=== PATIENT | male | born 1960 | race Caucasian/White ===

== ENCOUNTER 2016-10-06 18:32 | Inpatient (IN) | payer OTHER ==
[~2016-10-06] VITALS: Ht 182.9 cm; Wt 140.7 kg
[2016-10-06 18:41] VITALS: BP 167/85; PULSE 103; RESP 18; TEMP 97.7; O2SAT 100
--- NOTE | 2016-10-06 19:07 | PD ---
HPI Chief Complaint: Abdominal Pain Time Seen by Provider: 18:55 Travel History International Travel<30 days: No Contact w/Intl Traveler<30days: No Traveled to known affect area: No History of Present Illness HPI This is a 56-year-old male with history of hypertension, type 2 diabetes, non- Hodgkin's lymphoma which has been in remission for 15 years. He resents for evaluation of dysuria and abdominal pain. He reports over the past 2 months he has had issues with urinary retention as well as a burning sensation whenever he is able to urinate. Symptoms have been progressing, particularly over the past week, which prompted evaluation. It is associated with a generalized "tightness" type of pain across his abdomen. Denies any nausea or vomiting but he is concerned that he has lost 30 or 40 pounds over the past month secondary to severe anxiety and not eating. He reports that he has been anxious in regards to his symptoms as well as his current lack of health insurance. During examination he is tearful and clearly anxious. He denies flank pain, testicular or scrotal pain, urethral discharge, chest pain or shortness of breath. He does feel that when he is anxious he breathes more heavily. He has not been sexually active in years. He has no other complaints at this time. [facility] Past Medical History Narrative Medical History of hypertension, diabetes, remote history of non-Hodgkin's lymphoma Social History Alcohol Use: No Tobacco Use: No Allergies-Medications (Allergen,Severity, Reaction): Coded Allergies: Penicillin (Verified Allergy, Unknown, 10/06/16) Reported Meds & Prescriptions Reported Meds & Active Scripts Active Reported Metoprolol Tartrate 100 Mg Tab 100 Mg PO BID Lisinopril-Hctz 20-25 Mg Tab 1 Tab PO DAILY Glipizide 10 Mg Tab 10 Mg PO BIDAC Take 30 minutes before a meal Metformin (Metformin HCl) 1,000 Mg Tab 1,000 Mg PO BIDPC With meals Review of Systems Except as stated in HPI: all other systems reviewed are Neg Physical Exam Narrative GENERAL: This is a well-developed well-nourished obese male who is in no acute distress. He is anxious and tearful during examination. SKIN: Warm and dry. HEAD: Atraumatic. Normocephalic. EYES: Pupils equal and round. No scleral icterus. No injection or drainage. ENT: No nasal bleeding or discharge. Mucous membranes pink and moist. NECK: Trachea midline. No JVD. CARDIOVASCULAR: Regular rate and rhythm. No murmur appreciated. RESPIRATORY: No accessory muscle use. Clear to auscultation. Breath sounds equal bilaterally. GASTROINTESTINAL: Abdomen soft, mild generalized tenderness to palpation without guarding. No CVA tenderness. : Normal appearing testicles and scrotum. There is no tenderness to palpation of the scrotum. There is no urethral discharge. MUSCULOSKELETAL: No obvious deformities. No edema. NEUROLOGICAL: Awake and alert. No obvious cranial nerve deficits. Motor grossly within normal limits. Normal speech. Data Data Last Documented VS Vital Signs Date Time Temp Pulse Resp B/P Pulse Ox O2 Delivery O2 Flow Rate FiO2 10/06/16 19:25 99 18 121/81 99 Room Air 10/06/16 18:41 97.7 Orders Complete Blood Count With Diff (10/06/16 19:02) Comprehensive Metabolic Panel (10/06/16 19:02) Lipase (10/06/16 19:02) Urinalysis - C+S If Indicated (10/06/16 19:02) Ct Abd/Pel W Iv Contrast(Rout) (10/06/16 19:02) Electrocardiogram (10/06/16 19:02) Chest, Single Ap (10/06/16 19:02) Ckmb (Isoenzyme) Profile (10/06/16 19:42) Troponin I (10/06/16 19:42) Sodium Chlor 0.9% 1000 Ml Inj (Ns 1000 M (10/06/16 20:06) Labs Laboratory Tests Test 10/06/16 10/06/16 19:06 19:35 Urine Color YELLOW Urine Turbidity CLEAR Urine pH 6.5 Urine Specific [place] 1.017 Urine Protein TRACE mg/dL Urine Glucose (UA) NEG mg/dL Urine Ketones NEG mg/dL Urine Occult Blood NEG Urine Nitrite NEG Urine Bilirubin NEG Urine Urobilinogen LESS THAN 2.0 MG/DL Urine Leukocyte Esterase TRACE Urine RBC 1 /hpf Urine WBC 4 /hpf Urine Hyaline Casts 1 /lpf Urine Mucus FEW /lpf Microscopic Urinalysis Comment CULT NOT INDICATED White Blood Count 7.1 TH/MM3 Red Blood Count 4.09 MIL/MM3 Hemoglobin 10.9 GM/DL Hematocrit 32.4 % Mean Corpuscular Volume 79.1 FL Mean Corpuscular Hemoglobin 26.6 PG Mean Corpuscular Hemoglobin 33.6 % Concent Red Cell Distribution Width 15.0 % Platelet Count 165 TH/MM3 Mean Platelet Volume 7.4 FL Neutrophils (%) (Auto) 71.6 % Lymphocytes (%) (Auto) 19.9 % Monocytes (%) (Auto) 5.9 % Eosinophils (%) (Auto) 0.1 % Basophils (%) (Auto) 2.5 % Neutrophils # (Auto) 5.1 TH/MM3 Lymphocytes # (Auto) 1.4 TH/MM3 Monocytes # (Auto) 0.4 TH/MM3 Eosinophils # (Auto) 0.0 TH/MM3 Basophils # (Auto) 0.2 TH/MM3 CBC Comment AUTO DIFF MDM Medical Decision Making Medical Screen Exam Complete: Yes Emergency Medical Condition: Yes Medical Record Reviewed: Yes Differential Diagnosis Urinary tract infection, obstructive uropathy, urethritis, intra-abdominal mass , BPH Narrative Course 56-year-old male with a few months of dysuria, difficulty urinating, anxiety in regards to his medical symptoms as well as a reported 30-40 pound weight loss which he feels is secondary to the anxiety. Patient was initially seen in triage. Basic lab work and imaging studies have been ordered. The patient will be moved to a medical bed when one becomes available. Isacc Jim Oct 06, 2016 19:07
[2016-10-06 19:25] VITALS: BP 121/81; PULSE 99; RESP 18; O2SAT 99
[2016-10-06] MEDS ORDERED: METF1000 PO (19:26)
[2016-10-06] MEDS ORDERED: GLIP10TA6 PO (19:27)
[2016-10-06] MEDS ORDERED: LISI20TA3 PO (19:28)
[2016-10-06] MEDS ORDERED: METO100T PO (19:29)
[2016-10-06 19:30] LABS: BLOOD, URINE NEG (NEG); COMMENT (UR) CULT NOT INDICATED; CULTURE IF INDICATED CULT NOT INDICATED; GLUCOSE,URINE NEG (NEG); HYALINE CAST, URINE 1 /lpf (RARE); KETONE, URINE NEG (NEG); MUCUS URINE FEW /lpf (OCC); NITRITE,URINE NEG (NEG); PH, URINE 6.5 (5.0-8.5); URINE COLOR YELLOW (YELLW/STRAW)
[2016-10-06 19:46] LABS: AUTOMATED NEUTROPHIL # 5.1 TH/MM3 (1.8-7.7); BASOPHIL # 0.2 TH/MM3 (0-0.2); BASOPHIL % 2.5 % (0.0-2.0); EOSINOPHIL % 0.1 % (0.0-4.0); HEMATOCRIT 32.4 % (39.0-51.0); LYMPH % 19.9 % (9.0-44.0); LYMPHOCYTE # 1.4 TH/MM3 (1.0-4.8); MEAN CELL VOLUME 79.1 FL (80.0-100.0); MEAN CORPUSCULAR HEMOGLOBIN 26.6 PG (27.0-34.0); MEAN CORPUSCULAR HGB CONC 33.6 % (32.0-36.0); MONO % 5.9 % (0.0-8.0); NEUT % 71.6 % (16.0-70.0); PLATELET COUNT 165 TH/MM3 (150-450); RED BLOOD COUNT 4.09 MIL/MM3 (4.50-5.90); WHITE BLOOD COUNT 7.1 TH/MM3 (4.0-11.0)
[2016-10-06 19:51] LABS: HEMO FLAGS AUTO DIFF
--- NOTE | 2016-10-06 19:55 | RADRPT ---
EXAM DATE/TIME: 10/06/2016 19:14 [facility] COMPARISON: No previous studies available for comparison. INDICATIONS : Short of breath MEDICAL HISTORY : Lymphoma. SURGICAL HISTORY : Infusaport ENCOUNTER: Initial ACUITY: 2 weeks PAIN SCORE: 0/10 LOCATION: Bilateral chest FINDINGS: A single view of the chest demonstrates the lungs to be hypo- aerated without evidence of mass, infil trate or effusion. The cardiomediastinal contours are unremarkable. Osseous structures are intact. CONCLUSION: No acute disease. No significant change has occurred. Jeff Alcala MD on October 06, 2016 at 19:53 Board Certified Radiologist. This report was verified electronically.
[2016-10-06] MEDS ORDERED: SODIUM CHLOR 0.9% 1000 ML INJ 1,000 ML IV SCH (20:06)
[2016-10-06 20:15] LABS: ANION GAP 12 MEQ/L (5-15)
[2016-10-06 20:23] LABS: ALKALINE PHOSPHATASE 1003 U/L (45-117); ALT (GPT) 36 U/L (12-78); AST (GOT) 43 U/L (15-37); BICARBONATE 24.8 MEQ/L (21.0-32.0); BLOOD UREA NITROGEN 21 MG/DL (7-18); CHLORIDE 100 MEQ/L (98-107); GLOMERULAR FILTRATION RATE 51 ML/MIN (>89); POTASSIUM 3.5 MEQ/L (3.5-5.1); SODIUM (NA) 137 MEQ/L (136-145); TOTAL BILIRUBIN ADULT 0.6 MG/DL (0.2-1.0)
[2016-10-06 20:30] LABS: CREATINE KINASE 62 U/L (39-308)
[2016-10-06 20:34] LABS: BANDS 8 % (0-6); BLASTS 1 % (0-0); CORRECTED NUCLEATED RBC 7 /100 WBC (0-0); METAMYELOCYTES 3 % (0-1); MYELOCYTES 5 % (0-0); NEUTROPHIL # MANUAL DIFF 5.3 TH/MM3 (1.8-7.7); POLYS (SEG NEUTROPHILS) 57 % (16-70); PROMYELOCYTES 1 % (0-0); WBC DIFF SAMPLE 100
[2016-10-06 20:37] LABS: PLATELET ESTIMATE SMEAR NORMAL (NORMAL); PLATELET MORPHOLOGY NORMAL (NORMAL); TEARDROP RBCS 1+ (NORMAL)
[2016-10-06 20:38] LABS: SCAN/DIFF FINAL DIFF MANUAL
[2016-10-06] MEDS ORDERED: IOHEXOL 350 MG/ML 10 ML VIAL (for RAD DIAG) IV ONE (20:59)
--- NOTE | 2016-10-06 21:37 | RADRPT ---
EXAM DATE/TIME: 10/06/2016 20:38 [facility] COMPARISON: No previous studies available for comparison. INDICATIONS : Chest and abdominal pain and burning with urination. IV CONTRAST: 100 cc Omnipaque 350 (iohexol) IV ORAL CONTRAST: No oral contrast ingested. RADIATION DOSE: 24.97 CTDIvol (mGy) MEDICAL HISTORY : Lymphoma. Diabetes mellitus type 2. SURGICAL HISTORY : Appendectomy. ENCOUNTER: Initial ACUITY: 1 week PAIN SCALE: 5/10 LOCATION: Bilateral upper quadrant TECHNIQUE: Volumetric scanning of the abdomen and pelvis was performed. Using automated exposure control and ad justment of the mA and/or kV according to patient size, radiation dose was kept as low as reasonably achievable to obtain optimal diagnostic quality images. FINDINGS: LOWER LUNGS: The visualized lower lungs are clear. LIVER: Homogeneous density without lesion. There is no dilation of the biliary tree. Numerous calcified gal lstones are noted. SPLEEN: Moderately enlarged without evidence of focal lesion. PANCREAS: Within normal limits. KIDNEYS: A large complex partially calcified mass is identified extending from the lower pole the right kidney . It measures 9.2 x 7.2 x 6.3 cm in size. Bilateral simple renal cysts are also present. There is a 5 .2 cm simple cyst is identified off the upper pole of the right kidney. There is a 4.9 cm cyst off th e lower pole the left kidney. There is no evidence of hydronephrosis. ADRENAL GLANDS: Within normal limits. VASCULAR: There is no aortic aneurysm. BOWEL/MESENTERY: The stomach, small bowel, and colon demonstrate no acute abnormality. There is no free intraperitone al air or fluid. ABDOMINAL WALL: Within normal limits. RETROPERITONEUM: There is no lymphadenopathy. BLADDER: No wall thickening or mass. REPRODUCTIVE: Within normal limits. INGUINAL: There is no lymphadenopathy or hernia. MUSCULOSKELETAL: The bony structures demonstrate the presence of a smudgy sclerotic texture. There are no clearly dest ructive lesions. CONCLUSION: Large complex partially calcified right renal mass. Neoplasm needs to be excluded. Bilateral simple renal cysts. Cholelithiasis. Sclerotic bony texture which may or present blastic metastatic disease. Jeff Alcala MD on October 06, 2016 at 21:28 Board Certified Radiologist. This report was verified electronically.
[2016-10-06] MEDS ORDERED: LORazepam 2 MG/ML VIAL IV PUSH ONE (22:00)
[2016-10-06 22:06] VITALS: BP 130/60; PULSE 105; RESP 18; O2SAT 99
--- NOTE | 2016-10-06 22:06 | PD ---
Physical Exam Date Seen by Provider: Oct 06, 2016 Time Seen by Provider: 21:58 Narrative 56-year-old male that presents to the ED for evaluation of loss of weight, anxiety, oliguria and dysuria. Patient was seen primarily by Isacc Hall. Please refer to his note. Case was signed out to me pending imaging and lab report and disposition. Data Data Last Documented VS Vital Signs Date Time Temp Pulse Resp B/P Pulse Ox O2 Delivery O2 Flow Rate FiO2 10/06/16 19:25 99 18 121/81 99 Room Air 10/06/16 18:41 97.7 Orders Complete Blood Count With Diff (10/06/16 19:02) Comprehensive Metabolic Panel (10/06/16 19:02) Lipase (10/06/16 19:02) Urinalysis - C+S If Indicated (10/06/16 19:02) Ct Abd/Pel W Iv Contrast(Rout) (10/06/16 19:02) Electrocardiogram (10/06/16 19:02) Chest, Single Ap (10/06/16 19:02) Ckmb (Isoenzyme) Profile (10/06/16 19:42) Troponin I (10/06/16 19:42) Sodium Chlor 0.9% 1000 Ml Inj (Ns 1000 M (10/06/16 20:06) Iohexol 350 Inj (Omnipaque 350 Inj) (10/06/16 20:59) Lorazepam Inj (Ativan Inj) (10/06/16 22:00) Labs Laboratory Tests Test 10/06/16 10/06/16 10/06/16 19:06 19:35 19:53 Urine Color YELLOW Urine Turbidity CLEAR Urine pH 6.5 Urine Specific [place] 1.017 Urine Protein TRACE mg/dL Urine Glucose (UA) NEG mg/dL Urine Ketones NEG mg/dL Urine Occult Blood NEG Urine Nitrite NEG Urine Bilirubin NEG Urine Urobilinogen LESS THAN 2.0 MG/DL Urine Leukocyte Esterase TRACE Urine RBC 1 /hpf Urine WBC 4 /hpf Urine Hyaline Casts 1 /lpf Urine Mucus FEW /lpf Microscopic Urinalysis Comment CULT NOT INDICATED White Blood Count 7.1 TH/MM3 Red Blood Count 4.09 MIL/MM3 Hemoglobin 10.9 GM/DL Hematocrit 32.4 % Mean Corpuscular Volume 79.1 FL Mean Corpuscular Hemoglobin 26.6 PG Mean Corpuscular Hemoglobin 33.6 % Concent Red Cell Distribution Width 15.0 % Platelet Count 165 TH/MM3 Mean Platelet Volume 7.4 FL Neutrophils (%) (Auto) 71.6 % Lymphocytes (%) (Auto) 19.9 % Monocytes (%) (Auto) 5.9 % Eosinophils (%) (Auto) 0.1 % Basophils (%) (Auto) 2.5 % Neutrophils # (Auto) 5.1 TH/MM3 Lymphocytes # (Auto) 1.4 TH/MM3 Monocytes # (Auto) 0.4 TH/MM3 Eosinophils # (Auto) 0.0 TH/MM3 Basophils # (Auto) 0.2 TH/MM3 CBC Comment AUTO DIFF Differential Total Cells 100 Counted Neutrophils % (Manual) 57 % Band Neutrophils % 8 % Lymphocytes % 20 % Monocytes % 5 % Neutrophils # (Manual) 5.3 TH/MM3 Metamyelocytes 3 % Myelocytes 5 % Promyelocytes 1 % Nucleated Red Blood Cells 7 /100 WBC Differential Comment FINAL DIFF MANUAL Blastocytes 1 % Platelet Estimate NORMAL Platelet Morphology Comment NORMAL Tear Drop Cells 1+ Sodium Level 137 MEQ/L Potassium Level 3.5 MEQ/L Chloride Level 100 MEQ/L Carbon Dioxide Level 24.8 MEQ/L Anion Gap 12 MEQ/L Blood Urea Nitrogen 21 MG/DL Creatinine 1.44 MG/DL Estimat Glomerular Filtration 51 ML/MIN Rate Random Glucose 179 MG/DL Calcium Level 8.3 MG/DL Total Bilirubin 0.6 MG/DL Aspartate Amino Transf 43 U/L (AST/SGOT) Alanine Aminotransferase 36 U/L (ALT/SGPT) Alkaline Phosphatase 1003 U/L Total Protein 7.6 GM/DL Albumin 2.7 GM/DL Lipase 377 U/L Total Creatine Kinase 62 U/L Troponin I LESS THAN 0.02 NG/ML [facility] Medical Record Reviewed: Yes Supervised Visit with KAYLA: No Interpretation(s) CBC & BMP Diagram 10/06/16 19:35 Last Impressions Chest X-Ray 10/06/161901 Signed Impressions: Service Date/Time: Thursday, October 06, 2016 19:14 - CONCLUSION: No acute disease. No significant change has occurred. Jeff Alcala MD Abdomen/Pelvis CT 10/06/161901 Signed Impressions: Service Date/Time: Thursday, October 06, 2016 20:38 - CONCLUSION: Large complex partially calcified right renal mass. Neoplasm needs to be excluded. Bilateral simple renal cysts. Cholelithiasis. Sclerotic bony texture which may or present blastic metastatic disease. Jeff Alcala MD UA negative. Troponin and CK-MB negative. LFTs essentially unremarkable except for alkaline phosphatase of 1000 Differential Diagnosis Metastasis versus cancer versus tumor versus UTI versus abdominal mass versus mass versus electrolyte normal at the Narrative Course 56-year-old male that presents to the ED for evaluation of loss of weight, urinary symptoms as well as anxiety. Patient was properly examined and was found to have signs and symptoms consistent with appears to be unfortunately metastasis and likely recurrence of cancer. CT of the abdomen show mass in the right kidney which per patient she has had in the past. CT of for sure that showed changes on the spine that appeared to be metastatic. Lab work did show some bandemia as well as changes in the red blood cells. Concern for recurrence of blood cancer. Patient is very anxious on exam. Patient also has lost about 20-30 pounds of weight with no trying. Case was discussed in my attending who recommends admission for workup of metastatic disease. Patient appears to have some anxiety and is very anxious and depressed for the past couple months which I think is secondary to the disease. Findings and admission were discussed with family and patient were both agreeable with admission for workup. Case was discussed with Piyush Smalls for [facility] hospitalist who agrees to admission. Diagnosis Primary Impression: Metastatic disease Additional Impressions: Abdominal pain Qualified Code: R10.84 - Generalized abdominal pain Anxiety Renal mass Admitting Information Admitting Physician Requests: Carlos Lopez Oct 06, 2016 22:06
[2016-10-06] MEDS ORDERED: MORPHINE SULFATE 4 MG/ML INJ IV PUSH ONE (23:30)
[2016-10-07] VITALS (7 sets, daily range): BP systolic 110–140; BP diastolic 52–73; PULSE 68–89; RESP 18; TEMP 96.5–98.1; O2SAT 94–98
[2016-10-07] MEDS ORDERED: SODIUM CHLORIDE 0.9% FLUSH 5 ML FLUSH FLUSH PRN (00:15)
[2016-10-07] MEDS ORDERED: MAGNESIUM HYDROXIDE SUSP 30 ML CUP PO PRN (00:15)
[2016-10-07] MEDS ORDERED: NALOXONE HCL 0.4 MG/ML AMP IV PRN (00:15)
[2016-10-07] MEDS ORDERED: BISACODYL 10 MG SUPP PR PRN (00:15)
[2016-10-07] MEDS ORDERED: ACETAMINOPHEN 325 MG TAB PO PRN (00:15)
[2016-10-07] MEDS ORDERED: ONDANSETRON HCL 4 MG/2 ML VIAL IVP PRN (00:15)
[2016-10-07] MEDS ORDERED: MORPHINE SULFATE 4 MG/ML INJ IV PRN (00:15)
[2016-10-07] MEDS: MORPHINE SULFATE 4 MG/ML INJ IV PRN ×3 (00:35→19:23)
[2016-10-07] MEDS: SODIUM CHLOR 0.45% 1000 ML INJ 1,000 ML IV SCH ×2 (01:38→13:24)
[2016-10-07] MEDS ORDERED: DEXTROSE 50% IN WATER 50 ML VIAL(D50) IV PUSH PRN (09:00)
[2016-10-07] MEDS ORDERED: GLUCAGON 1 MG/ML VIAL OTHER PRN (09:00)
[2016-10-07] MEDS: HEPARIN SODIUM - SQ 10,000 UNITS/ML VIAL SQ SCH ×2 (09:18→22:04)
[2016-10-07] MEDS: METOPROLOL TARTRATE 100 MG TAB PO SCH ×2 (09:18→22:05)
[2016-10-07] MEDS: glipiZIDE 10 MG TAB PO SCH ×2 (09:18→16:38)
[2016-10-07] MEDS: SODIUM CHLORIDE 0.9% FLUSH 5 ML FLUSH FLUSH SCH ×2 (09:19→20:00)
--- NOTE | 2016-10-07 09:53 | MH ---
cc: MARIANA KILPATRICK DATE OF ADMISSION 10/06/2016 PRIMARY CARE PHYSICIAN Lauri Sánchez MD HISTORY The patient has had an oncologist in the past, Dr. Octavio Cunha, but has not seen him for many many years. PRESENTING COMPLAINT Abdominal pain and complaints with urination HISTORY OF PRESENT ILLNESS The patient is a 56-year-old obese gentleman with a past medical history significant for hypertension, type 2 diabetes and non-Hodgkin's lymphoma which has been in remission for 15 years. The patient had followed with Dr. Octavio Cunha for his non-Hodgkin's lymphoma and has not seen him for years. He presents to the ER for evaluation of dysuria and abdominal pain. The patient reports over the last two months he has been experiencing urinary retention, as well as, some burning sensation whenever he is able to urinate. Symptoms have been progressing and within the past one week has gotten worse so he came into the ER for evaluation. The patient reports he had seen Dr. Sánchez and told that he might have an enlarged prostate. The patient also experiences some abdominal pain which is vague. Denies any nausea or vomiting. Admits to 30-40 pounds unintentional weight loss over the last one month. 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 He denies flank pain, testicular or scrotal pain, urethral discharge, chest pain or shortness of breath at this point. PAST MEDICAL HISTORY Significant for: 1. Hypertension 2. Diabetes 3. A remote history of non-Hodgkin's lymphoma. PAST SURGICAL HISTORY None ALLERGIES INCLUDE PENICILLIN MEDICATIONS At home: 1. Metoprolol 100 mg p.o. b.i.d. 2. Lisinopril/HCTZ 20/25 one tablet p.o. daily 3. Glipizide 10 mg p.o. b.i.d. 4. Metformin 1000 mg p.o. b.i.d. 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 He has no family other than his mom in the State of [place]. REVIEW OF SYSTEMS All 14-systems were reviewed and the pertinent positives are mentioned in the HPI, otherwise it was negative in all 14-systems that were reviewed. PHYSICAL EXAM On physical examination, his vital signs at this point show a temperature of 97.7, pulse 71, respiratory rate 18 systolic blood pressure 130, diastolic 66 and he is sating 94% on room air. GENERAL PHYSICAL EXAMINATION: The patient is an obese gentleman laying in bed, seems really anxious, almost tearful. SKIN: Warm and dry. HEAD: Atraumatic, normocephalic. EYES: Pupils are equally round and reactive to light and accommodation. No scleral icterus or conjunctival injection was noted. Oral mucosa appears slightly dry. NECK: Supple and nontender. CARDIOVASCULAR: S1-S2 regular without gallops, murmurs or rubs. RESPIRATORY: Bilateral air entry, clear to auscultation. No rales, wheezes or rhonchi. GI: Positive bowel sounds, soft, mildly generalized tenderness without guarding. GENITOURINARY: No discharge. Normal-appearing testicles and scrotum. NEUROLOGIC EXAMINATION: Awake, alert, oriented. The patient does seem anxious, otherwise no focal deficit was seen. Cranial nerves appeared grossly intact. PSYCH: The patient is appropriate and cooperative. As mentioned above, the patient is anxious. PERTINENT LAB INVESTIGATIONS Shows a WBC count of 7.1, hemoglobin 10.9, hematocrit 32.4, platelet count of 165. Chemistry shows sodium 137, potassium 3.5, chloride 100, bicarb 94.8, BUN 21, creatinine 1.44, glucose 179, potassium 8.3, AST 43, ALT 36, alk phos 1003 which is elevated. CK negative. Troponin less than 0.02, total protein 7.6, albumin 2.7, lipase of 377. Urinanalysis appears negative. PERTINENT IMAGING STUDIES Include a chest x-ray done in the emergency room which showed no acute disease. The patient had a CT scan of the abdomen and pelvis which shows large complex partially calcified right renal mass and neoplasm needs to be excluded. Also seen were bilateral simple renal cysts, some gallstones and sclerotic bony texture which may represent blastic metastatic disease. DIAGNOSTIC IMPRESSION 1. Abdominal pain, dysuria 2. Right renal mass possible metastatic cancer. 3. Question recurrence of non-Hodgkin's lymphoma. 4. Diabetes 5. Hypertension 6. Anxiety 7. Elevated alkaline phosphatase 8. Mildly elevated creatinine PLAN The patient is admitted for observation at this point. We will continue with IV fluids, recheck creatinine in the morning. I will resume home Metoprolol and Glipizide. Start the patient on ADA diet. We will hold STAR inhibitors and Metformin for now and will resume once renal function is better. Awaiting oncology consultation. The patient is scheduled for a bone scan and a CT of his chest later today. DVT prophylaxis, GI prophylaxis. The patient counseled aggressively about the diagnosis and need to control anxiety. Discussion seemed to have helped. Elevated alkaline phosphatase possibly could be secondary to metastatic disease. We will recheck LFTs in the morning. Plan discussed with the patient in detail and also discussed with the patient's nursing staff. There is no family at bedside. MD MISSY Brito/VIVEK /9:16 AM /9:37 AM
[2016-10-07] MEDS: INSULIN ASPART SUPPLEMENTAL SCALE SQ SCH ×3 (11:00→21:00)
--- NOTE | 2016-10-07 13:38 | RADRPT ---
EXAM DATE/TIME: 10/07/2016 13:12 [facility] COMPARISON: No previous studies available for comparison. INDICATIONS : Evaluate for metastatic disease. Renal mass possible cancer RADIATION DOSE: 17.47 CTDIvol (mGy) MEDICAL HISTORY : Hypertension. Lymphoma. SURGICAL HISTORY : None. ENCOUNTER: Initial ACUITY: 1 day PAIN SCALE: 0/10 LOCATION: Bilateral chest TECHNIQUE: Volumetric scanning of the chest was performed. Using automated exposure control and adjustment of t he mA and/or kV according to patient size, radiation dose was kept as low as reasonably achievable to obtain optimal diagnostic quality images. FINDINGS: LUNGS: There is no consolidation or pneumothorax. No concerning pulmonary nodule is visualized. PLEURAE: There is no pleural thickening or pleural effusion. MEDIASTINUM: The heart and great vessels demonstrate no acute abnormality. There is no mediastinal or hilar lymph adenopathy. AXILLAE: Within normal limits. No lymphadenopathy. MUSCULOSKELETAL: Within normal limits for patient age. MISCELLANEOUS: The visualized upper abdominal organs demonstrate no acute abnormality. Innumerable gallstones CONCLUSION: Unremarkable study. Numerous gallstones. Prominent osteophytes throughout the thoracic spine but no e vidence of metastatic disease. Nikolas Shipley MD on October 07, 2016 at 13:35 Board Certified Radiologist. This report was verified electronically.
--- NOTE | 2016-10-07 14:07 | RADRPT ---
EXAM DATE/TIME: 10/07/2016 13:45 [facility] COMPARISON: No previous studies available for comparison. PRIOR BONE SCANS: No correlative bone scan available for comparison. INDICATIONS : Metastatic disease. Non-Hodgkins lymphoma remission for 15 years. DOSE: 30.1 mCi Tc99m MDP IV MEDICAL HISTORY : Hypertension. Diabetes mellitus type 2. SURGICAL HISTORY : Appendectomy. ENCOUNTER: Initial ACUITY: 1 week PAIN SCALE: 2/10 LOCATION: Abdomen. TECHNIQUE: Three hours post intravenous administration of radiotracer, whole body bone scan imaging was performe d. FINDINGS: Blood pool images demonstrate a homogeneous pattern of uptake in the soft tissues. No hyperemic area s are identified. Planar bone scan demonstrates a normal pattern of uptake. No focal areas of incre ased or decreased uptake are seen other than slight uptake around the shoulders and knees bilaterally consistent with osteoarthritis. CONCLUSION: Normal examination other than slight uptake around the shoulders and knees bilaterally consistent wit h osteoarthritis. Nikolas Shipley MD on October 07, 2016 at 14:05 Board Certified Radiologist. This report was verified electronically.
--- NOTE | 2016-10-07 16:31 | EKG ---
Date Performed: 10/06/2016 Time Performed: 19:10:09 PTAGE: 56 years EKG: ATRIAL FLUTTER/TACHYCARDIA WITH RAPID VENTRICULAR RESPONSE WITH ABERRANT CONDUCTION OR VENT RICULAR PREMATURE COMPLEXES Clinical correlation is recommended ABNORMAL RHYTHM ECG NO PREVIOUS TRACING DOCTOR: Johnson Meade Interpretating Date/Time 10/07/2016 16:30:11
--- NOTE | 2016-10-07 21:01 | MB ---
cc: SULMA KILPATRICK MD, ABDUL J. M.D. DATE OF CONSULTATION 10/07/2016 REASON FOR CONSULTATION Consult requested by Dr. Kilpatrick for evaluation of right kidney mass. HISTORY OF PRESENT ILLNESS This is a 56-year-old male. He has a history of non-Hodgkin's lymphoma which was treated with R-CHOP 15 years ago by a medical oncologist Dr. Octavio Cunha. The patient followed with Dr. Cunha for few years and he lost his insurance. He has not seen Dr. Cunha for several years. The patient came into the emergency room complaining of abdominal pain and dysuria. He was also complaining of weight loss. In the emergency room the patient underwent workup with a CT scan of the abdomen and pelvis and a chest x-ray. This revealed large complex partially calcified right renal mass and neoplasm is suspected. Also he has bilateral simple renal cysts and cholelithiasis. There is sclerotic bony texture noted which may or may not be positive metastatic disease. The patient is admitted to the hospital. I have been asked to see him for further evaluation. The patient denies any hematuria. He is complaining of dysuria with right-sided abdominal pain. He denies any nausea, vomiting, diarrhea. He has extreme anxiety. The rest of the review of systems is negative. PAST MEDICAL HISTORY 1. Non-Hodgkin's lymphoma that was treated with Rituxan and CHOP chemotherapy 15 years ago. 2. Hypertension. 3. Diabetes mellitus. PAST SURGICAL HISTORY [id number] placement. ALLERGIES PENICILLIN. MEDICATIONS 1. Metoprolol. 2. Lisinopril. 3. Hydrochlorothiazide. 4. Glipizide. 5. Metformin. FAMILY HISTORY Noncontributory. SOCIAL HISTORY The patient does not smoke cigarettes, does not drink alcohol. He lives with his mom. PHYSICAL EXAMINATION GENERAL: This is a well-developed, well-nourished white male in no apparent distress. VITAL SIGNS: Temperature 97.7, heart rate 71, blood pressure 130/66. HEENT: Pupils equal, round, reactive to light and accommodation. Extraocular muscles intact. Anicteric. No oral lesions noted. NECK: Supple. LYMPHATICS: There is no cervical, supraclavicular or axillary lymphadenopathy noted. LUNGS: Clear. No wheezes, rhonchi or rales. HEART: Regular rate and rhythm. ABDOMEN: Soft. Nontender. No hepatosplenomegaly. EXTREMITIES: No pedal edema. NEUROLOGICAL: Awake and alert, oriented times three. SKIN: No significant lesions noted. ASSESSMENT 1. A large complex partially calcified mass in the right kidney which is 9.3 x 7.2 x 6.3 cm. This is highly suspicious for kidney cancer until proven otherwise. 2. History of non-Hodgkin's lymphoma status post Rituxan and CHOP chemotherapy 15 years ago. 3. Bony structures demonstrate the presence of a smudgy sclerotic texture. There are no clearly destructive lesions noted. PLAN I have reviewed his available records and I had an extensive discussion with the patient regarding the nature of the right kidney mass. I suspect that we are dealing with renal cell cancer until proven otherwise. My recommendation is to get the CT scan of the chest and bone scan for staging purposes. If the CT scan of the chest and bone scan show metastatic disease then we will ask interventional radiology for the biopsy for tissue diagnosis. However, if the CT scan of the chest and bone scan are negative, then I will consult urology for evaluation of possible resection of the right kidney mass which is highly suspicious for malignancy. I have discussed the case with the admission physician Dr. Kilpatrick, . Further recommendations to follow. Thank you for asking my opinion. MD AARTI Blevins/CHICHI /8:21 PM /8:52 PM SHERI
[2016-10-07] MEDS: ZOLPIDEM TARTRATE 5 MG TAB PO PRN (21:40)
[2016-10-07] MEDS: FAMOTIDINE 20 MG TAB PO SCH (22:04)
[2016-10-08] VITALS (8 sets, daily range): BP systolic 102–149; BP diastolic 54–79; PULSE 72–106; RESP 16–18; TEMP 95.9–97.9; O2SAT 94–100
[2016-10-08] MEDS: SODIUM CHLOR 0.45% 1000 ML INJ 1,000 ML IV SCH ×3 (02:44→20:36)
[2016-10-08] MEDS: MORPHINE SULFATE 4 MG/ML INJ IV PRN ×3 (03:35→13:44)
[2016-10-08] MEDS: INSULIN ASPART SUPPLEMENTAL SCALE SQ SCH ×4 (06:10→21:14)
[2016-10-08] MEDS: glipiZIDE 10 MG TAB PO SCH ×2 (06:51→17:36)
[2016-10-08 07:59] LABS: AUTOMATED NEUTROPHIL # 3.1 TH/MM3 (1.8-7.7); BASOPHIL % 0.9 % (0.0-2.0); EOSINOPHIL % 0.4 % (0.0-4.0); HEMATOCRIT 24.9 % (39.0-51.0); LYMPHOCYTE # 0.9 TH/MM3 (1.0-4.8); MEAN CELL VOLUME 78.9 FL (80.0-100.0); MEAN CORPUSCULAR HEMOGLOBIN 25.9 PG (27.0-34.0); MEAN CORPUSCULAR HGB CONC 32.8 % (32.0-36.0); MONO % 10.9 % (0.0-8.0); NEUT % 68.8 % (16.0-70.0); PLATELET COUNT 86 TH/MM3 (150-450); RED BLOOD COUNT 3.15 MIL/MM3 (4.50-5.90); RED CELL DISTRIBUTION WIDTH 15.1 % (11.6-17.2); WHITE BLOOD COUNT 4.5 TH/MM3 (4.0-11.0)
[2016-10-08 08:09] LABS: INTERNATIONAL NORMALIZED RATIO 1.1 RATIO; PROTHROMBIN TIME - PATIENT 12.7 SEC (9.8-11.6)
[2016-10-08 08:23] LABS: ANION GAP 13 MEQ/L (5-15); BICARBONATE 25.2 MEQ/L (21.0-32.0); BLOOD UREA NITROGEN 16 MG/DL (7-18); CHLORIDE 100 MEQ/L (98-107); GLOMERULAR FILTRATION RATE 88 ML/MIN (>89); POTASSIUM 3.9 MEQ/L (3.5-5.1); SODIUM (NA) 138 MEQ/L (136-145)
[2016-10-08 08:36] LABS: HEMO FLAGS AUTO DIFF
[2016-10-08 08:45] LABS: BANDS 19 % (0-6); CORRECTED NUCLEATED RBC 3 /100 WBC (0-0); METAMYELOCYTES 2 % (0-1); MYELOCYTES 1 % (0-0); NEUTROPHIL # MANUAL DIFF 3.4 TH/MM3 (1.8-7.7); PLATELET ESTIMATE SMEAR LOW (NORMAL); PLATELET MORPHOLOGY NORMAL (NORMAL); POLYS (SEG NEUTROPHILS) 53 % (16-70); SCAN/DIFF FINAL DIFF MANUAL; WBC DIFF SAMPLE 100
[2016-10-08 08:49] LABS: FERRITIN 5118 NG/ML (26-388); TRANSFERRIN IRON PROFILE 171 MG/DL (200-360)
--- NOTE | 2016-10-08 08:58 | MB ---
cc: JONAS LEDBETTER MD DATE OF CONSULTATION 10/08/2016 REASON FOR CONSULTATION 1. Right renal mass 2. Lower urinary tract symptoms HISTORY The patient is a 56-year-old male with a history of non-Hodgkin's lymphoma status post chemotherapy approximately 15 years ago currently in remission. He came to the emergency room yesterday complaining of right-sided abdominal pain and dysuria. He has also complained of a 30-40 pounds weight loss over the last couple of months and a decrease in appetite. While in the emergency room, he underwent a workup which included CT of the abdomen and pelvis with contrast which showed a large complex partially calcified lower pole right renal mass approximately 9 cm in size suspicious for a possible malignancy. Also subsequently had bilateral renal cysts on each of kidney which appeared be benign in nature. On CT, there was also found to be a possible sclerotic bony lesion as well. He subsequently was admitted to [facility] for further evaluation. Subsequently he was seen by medical oncology who ordered a bone scan and CT of his chest which were negative for metastatic disease. The patient is currently complaining of burning type right-sided abdominal pain, as well as, pain going down his right side of his leg. He just knows there is "something wrong with him." He also has significant lower urinary tract symptoms including weak stream, nocturia six to seven times, as well as persistent dysuria. Denies fevers, chills, nausea or vomiting. Denies ever taking medication for his the lower urinary tract symptoms. He denies hematuria as well. He does have a history of smoking in the past. He denies a history of kidney stones or a history of prostate cancer. REVIEW OF SYSTEMS See HPI, otherwise all systems reviewed otherwise were negative. PAST HISTORY 1. Non-Hodgkin's lymphoma treated with chemotherapy 15 years ago 2. Hypertension 3. Diabetes 4. Lower urinary tract symptoms. PAST SURGICAL HISTORY He has had an appendectomy and a port placement. ALLERGIES PENICILLIN MEDICATIONS Include: 1. Metoprolol 2. Lisinopril 3. Hydrochlorothiazide 4. Glipizide 5. Metformin FAMILY HISTORY Denies urolithiasis or genitourinary malignancies. SOCIAL HISTORY He has a history of tobacco use, but denies alcohol or illicit drug. He currently lives with his mom. PHYSICAL EXAMINATION VITAL SIGNS: Temperature is 97.5, pulse 72, respiratory rate 18, blood pressure 110/54 sating 98% on room air. GENERAL: He is alert and oriented x3 in no apparent distress, but he is slightly anxious. He is obese. HEAD: Normocephalic, atraumatic. NECK: Supple. Trachea is midline. No JVD. EYES: No scleral icterus. Extraocular muscles are intact. SKIN: No ulcers or rashes. LUNGS: Clear to auscultation bilaterally. No wheezes, rales, or rhonchi. HEART: Regular rhythm. No murmurs, gallops or rubs. ABDOMEN: Soft, but obese, nontender, nondistended. No peritoneal signs. He does have a small scar on his right lower quadrant consistent with appendectomy. GENITOURINARY: He has no CVA tenderness bilaterally. His penis is circumcised. Testes are descended bilaterally. Normal size and consistency. EXTREMITIES: Nontender, no clubbing, cyanosis or edema. PSYCH: He is anxious and worried. NEUROLOGIC: Cranial nerves II-XII intact. Strength 5/5 all four extremities. LABORATORY DATA Show a sodium of 137, potassium 3.5, chloride 100, bicarb 24.8, BUN 21, creatinine 1.44, glucose 179, calcium 8.3. He has alk phos of 1003. His white count is 7.1, hemoglobin 10.9, hematocrit 32.4, platelet count 165. His urine pH is 6.5, negative nitrates, trace leukocyte esterase, negative for blood. IMAGING STUDIES CT abdomen and pelvis with contrast images reviewed agree with radiologist's report. He has an irregular complex calcified lower pole 9.2 cm right renal mass concerning for malignancy. He has bilateral renal cysts as well. ASSESSMENT AND PLAN 1. The patient is a 56-year-old male with history of non-Hodgkin's lymphoma currently in remission who presents with abdominal pain, weight loss and lower urinary tract symptoms. He was found to have a complex 9 cm lower pole renal mass. The plan, I suspect this is likely a renal cell carcinoma of his right kidney. However due to his history of non-Hodgkin's lymphoma, even though 15 years ago, it does elicit the possibility that it could possibly be a lymphoma of his right kidney due to the irregularity of the mass. Fortunately, his metastatic workup is negative to date. I think it may be worthwhile, while he is in the hospital, to undergo a percutaneous biopsy of that right renal mass just to confirm that it is a renal cell carcinoma and not in fact a lymphoma as it could alter his alternate treatment plan. If it is a primary renal cell carcinoma, then the best treatment then would be to undergo a right radical nephrectomy which likely could be done laparoscopically. 2. We will start the patient Flomax 0.4 daily for his severe lower urinary tract symptoms. 3. We will check go ahead and check his PSA. Thank you for this consult. We will follow along with you. MD DEBRA Mccarthy/VIVEK /8:26 AM /8:43 AM
[2016-10-08] MEDS: SODIUM CHLORIDE 0.9% FLUSH 5 ML FLUSH FLUSH SCH ×2 (10:06→21:00)
[2016-10-08] MEDS: TAMSULOSIN HCL 0.4 MG CAP PO SCH (10:07)
[2016-10-08] MEDS: METOPROLOL TARTRATE 100 MG TAB PO SCH ×2 (10:07→21:07)
[2016-10-08] MEDS: HEPARIN SODIUM - SQ 10,000 UNITS/ML VIAL SQ SCH (11:11)
--- NOTE | 2016-10-08 12:06 | HHI.PR ---
Subjective Interval History awake alert and oriented less anxious today NPO wants to eat no fever no family at bed side no issues per nursing staff Vitals/Results Intake & Output 10/07/16 10/07/16 10/08/16 15:00 23:00 07:00 Intake Total 1000 ml Output Total 400 ml Balance 600 ml Intake IV Total 1000 ml Output Urine Total 400 ml Vital Signs Vital Signs Date Time Temp Pulse Resp B/P Pulse Ox O2 Delivery O2 Flow Rate FiO2 10/08/16 11:45 97.1 81 16 148/68 96 10/08/16 11:12 16 10/08/16 09:47 96 21 10/08/16 08:00 95.9 78 16 102/54 95 10/08/16 04:00 97.5 72 18 110/54 98 10/08/16 00:00 97.5 76 18 124/59 95 10/07/16 20:00 97.2 81 18 140/73 95 10/07/16 15:50 96.5 76 18 133/68 94 CBC/BMP: 10/08/16 0625 10/08/16 0625 Lab Results Laboratory Tests Test 10/08/16 06:25 White Blood Count 4.5 TH/MM3 Red Blood Count 3.15 MIL/MM3 Hemoglobin 8.2 GM/DL Hematocrit 24.9 % Mean Corpuscular Volume 78.9 FL Mean Corpuscular Hemoglobin 25.9 PG Mean Corpuscular Hemoglobin 32.8 % Concent Red Cell Distribution Width 15.1 % Platelet Count 86 TH/MM3 Mean Platelet Volume 7.2 FL Neutrophils (%) (Auto) 68.8 % Lymphocytes (%) (Auto) 19.0 % Monocytes (%) (Auto) 10.9 % Eosinophils (%) (Auto) 0.4 % Basophils (%) (Auto) 0.9 % Neutrophils # (Auto) 3.1 TH/MM3 Lymphocytes # (Auto) 0.9 TH/MM3 Monocytes # (Auto) 0.5 TH/MM3 Eosinophils # (Auto) 0.0 TH/MM3 Basophils # (Auto) 0.0 TH/MM3 CBC Comment AUTO DIFF Differential Total Cells 100 Counted Neutrophils % (Manual) 53 % Band Neutrophils % 19 % Lymphocytes % 17 % Monocytes % 8 % Neutrophils # (Manual) 3.4 TH/MM3 Metamyelocytes 2 % Myelocytes 1 % Nucleated Red Blood Cells 3 /100 WBC Differential Comment FINAL DIFF MANUAL Platelet Estimate LOW Platelet Morphology Comment NORMAL Prothrombin Time 12.7 SEC Prothromb Time International 1.1 RATIO Ratio Activated Partial 24.0 SEC Thromboplast Time Sodium Level 138 MEQ/L Potassium Level 3.9 MEQ/L Chloride Level 100 MEQ/L Carbon Dioxide Level 25.2 MEQ/L Anion Gap 13 MEQ/L Blood Urea Nitrogen 16 MG/DL Creatinine 0.89 MG/DL Estimat Glomerular Filtration 88 ML/MIN Rate Random Glucose 134 MG/DL Calcium Level 7.8 MG/DL Iron Level 41 MCG/DL Total Iron Binding Capacity 239 MCG/DL Percent Iron Saturation 17.1 % Ferritin 5118 NG/ML Vitamin B12 Level 513 PG/ML Folate 5.6 NG/ML Physical Exam General General Appearance: Well Nourished, No Acute Distress, Comfortable Eyes Eye Exam: Pupils Equal, Pupils Reactive Ears & Nose Ears & Nose Exam: Tympanic Membranes Normal Throat Throat Exam: Oral Mucosa [place] & Moist Neck Neck Exam: Neck Supple, Trachea Midline Pulmonary Resp Exam: Clear Bilaterally, Breath Sounds Equal, No Distress Cardiology CV Exam: Regular, Normal Sinus Rhythm Gastrointestinal/Abdomen GI Exam: Soft, Bowel Sounds Present Musculoskeletal MS Exam: Joints Intact, Normal Gait, Normal Tone Integumentary Skin Exam: Clear, Warm, Dry, Intact Extremeties Extremities Exam: No Edema Neurologic Neuro Exam: Alert, Awake, Oriented, Speech Clear, Moving All Extremities Psychiatric Psych Exam: Appropriate Responses Assessment/Plan Assessment/Plan DIAGNOSTIC IMPRESSION 1. Abdominal pain, dysuria 2. Right renal mass possible metastatic cancer. 3. Question recurrence of non-Hodgkin's lymphoma. 4. Diabetes 5. Hypertension 6. Anxiety 7. Elevated alkaline phosphatase 8. Mildly elevated creatinine PLAN will switch to inpatient, needs further diagnostic testing Appreciate ONcology and Urology input large complex right renal Mass ? RCC vs LYmphoma urology would like to proceed with biopsy first CT chest and BOne scan neg for metastatic disease NPO for possible biopsy, if no plan today, will feed the patient i/v fluids monitor creatinine Flomax started resume appropriate home meds holding Josemanuel i and Metformin repeat LFTS in am DVT prophylaxis, GI prophylaxis. discussed with the patient discussed with nursing staff. discussed with Dr Arthur There is no family at bedside. Monica Mckeon MD Oct 08, 2016 12:06
--- NOTE | 2016-10-08 14:30 | PD.ONC.PN ---
Subjective Subjective Remarks Afebrile overnight. Patient resting comfortably. He just received pain medication and states his back feels better. Objective Data Date Time Temp Pulse Resp B/P Pulse Ox O2 Delivery O2 Flow Rate FiO2 10/08/16 11:45 97.1 81 16 148/68 96 10/08/16 11:12 16 10/08/16 09:47 96 21 10/08/16 08:00 95.9 78 16 102/54 95 10/08/16 04:00 97.5 72 18 110/54 98 10/08/16 00:00 97.5 76 18 124/59 95 10/07/16 20:00 97.2 81 18 140/73 95 10/07/16 15:50 96.5 76 18 133/68 94 10/08/16 10/08/16 10/08/16 07:00 15:00 23:00 Intake Total 1000 ml 0 ml Output Total 400 ml Balance 600 ml 0 ml Result Diagram: 10/08/1625 10/08/16 0625 Laboratory Results Laboratory Tests Test 10/08/16 06:25 White Blood Count 4.5 TH/MM3 Red Blood Count 3.15 MIL/MM3 Hemoglobin 8.2 GM/DL Hematocrit 24.9 % Mean Corpuscular Volume 78.9 FL Mean Corpuscular Hemoglobin 25.9 PG Mean Corpuscular Hemoglobin 32.8 % Concent Red Cell Distribution Width 15.1 % Platelet Count 86 TH/MM3 Mean Platelet Volume 7.2 FL Neutrophils (%) (Auto) 68.8 % Lymphocytes (%) (Auto) 19.0 % Monocytes (%) (Auto) 10.9 % Eosinophils (%) (Auto) 0.4 % Basophils (%) (Auto) 0.9 % Neutrophils # (Auto) 3.1 TH/MM3 Lymphocytes # (Auto) 0.9 TH/MM3 Monocytes # (Auto) 0.5 TH/MM3 Eosinophils # (Auto) 0.0 TH/MM3 Basophils # (Auto) 0.0 TH/MM3 CBC Comment AUTO DIFF Differential Total Cells 100 Counted Neutrophils % (Manual) 53 % Band Neutrophils % 19 % Lymphocytes % 17 % Monocytes % 8 % Neutrophils # (Manual) 3.4 TH/MM3 Metamyelocytes 2 % Myelocytes 1 % Nucleated Red Blood Cells 3 /100 WBC Differential Comment FINAL DIFF MANUAL Platelet Estimate LOW Platelet Morphology Comment NORMAL Prothrombin Time 12.7 SEC Prothromb Time International 1.1 RATIO Ratio Activated Partial 24.0 SEC Thromboplast Time Sodium Level 138 MEQ/L Potassium Level 3.9 MEQ/L Chloride Level 100 MEQ/L Carbon Dioxide Level 25.2 MEQ/L Anion Gap 13 MEQ/L Blood Urea Nitrogen 16 MG/DL Creatinine 0.89 MG/DL Estimat Glomerular Filtration 88 ML/MIN Rate Random Glucose 134 MG/DL Calcium Level 7.8 MG/DL Iron Level 41 MCG/DL Total Iron Binding Capacity 239 MCG/DL Percent Iron Saturation 17.1 % Ferritin 5118 NG/ML Vitamin B12 Level 513 PG/ML Folate 5.6 NG/ML Administered Medications Medications (Trade) Dose Ordered Sig/Annette Route PRN Reason Start Time Stop Time Status Last Admin Dose Admin Sodium Chloride (1/2 NS 1000 ml Inj) 1,000 ml @ 75 mls/hr [id number] IV 10/07/16 00:04 10/08/16 05:08 IV Flush (NS Flush) 2 ml BID FLUSH 10/07/16 09:00 10/07/16 20:00 Ondansetron HCl (Zofran Inj) 4 mg Q6H PRN IVP NAUSEA OR VOMITING 10/07/16 00:15 10/07/16 00:35 Zolpidem Tartrate (Ambien) 5 mg HS PRN PO INSOMNIA 10/07/16 00:15 10/07/16 21:40 Heparin Sodium (Porcine) (Heparin Inj) 5,000 units Q12HR SQ 10/07/16 09:00 10/08/16 11:11 Morphine Sulfate (Morphine Inj) 4 mg Q3H PRN IV Pain 6-10;if unable to take PO 10/07/16 00:15 10/08/16 13:44 Famotidine (Pepcid) 20 mg HS PO 10/07/16 21:00 10/07/16 22:04 Glipizide (Glucotrol) 10 mg BIDAC PO 10/07/16 09:00 10/07/16 16:38 Metoprolol Tartrate (Lopressor) 100 mg BID PO 10/07/16 09:00 10/07/16 22:05 Objective Remarks GENERAL: MIddle aged male, lying in bed in nad. SKIN: Warm and dry. HEAD: Normocephalic. EYES: No injection or drainage. NECK: Supple, trachea midline. CARDIOVASCULAR: Regular rate and rhythm RESPIRATORY: Breath sounds equal bilaterally. No accessory muscle use. GASTROINTESTINAL: Abdomen soft, non-tender, nondistended. EXTREMITIES: No cyanosis NEUROLOGICAL: No obvious focal deficit. Awake, alert, and oriented x3. Assessment/Plan Problem List: (1) Renal mass Status: Acute Plan: 10/08: d/w Dr. Suarez, invasive radiology has been consulted for biopsy, possibly tomorrow. will await pathology History: came into the emergency room complaining of abdominal pain and dysuria + weight loss. --CT ab/pelvis + CXR showed large complex partially calcified right renal mass, neoplasm suspected. --CT chest: no mets --Bone scan: no mets Assessment 56y/o male with right kidney mass admitted with abdominal pain and dysuria. h/o non-Hodgkin's lymphoma-->treated with R-CHOP 15 years ago (Dr. Cunha) Hypertension. Diabetes mellitus Attending Statement [email or web address]. He is NPO for the bx await consult B12 and Folate are Nl Ferritin is high , ? hemochromatosis vs acute phase reactant or liver dysfunction increase alk phos . This is either from Bone or liver. Order fractionation. CT chest and bone scan are neg The exam, history, and the medical decision-making described in the above note were completed with the assistance of the mid-level provider. I reviewed and agree with the findings presented. I attest that I had a [id number] encounter with the patient on the same day, and personally performed and documented my assessment and findings in the medical record. Sharri Stinson Oct 08, 2016 14:30 Bismark Arthur MD Oct 08, 2016 21:56
[2016-10-08] MEDS: oxyCODONE/ACETAMINOPHEN 5 MG/325 MG TAB PO PRN (17:35)
[2016-10-08] MEDS: FAMOTIDINE 20 MG TAB PO SCH (21:07)
[2016-10-08] MEDS: ZOLPIDEM TARTRATE 5 MG TAB PO PRN (22:24)
[2016-10-09] VITALS (11 sets, daily range): BP systolic 96–141; BP diastolic 52–69; PULSE 82–98; RESP 16–20; TEMP 96.8–99; O2SAT 94–99
[2016-10-09] MEDS: oxyCODONE/ACETAMINOPHEN 5 MG/325 MG TAB PO PRN ×4 (00:34→23:42)
[2016-10-09] MEDS: SODIUM CHLOR 0.45% 1000 ML INJ 1,000 ML IV SCH ×2 (05:24→17:39)
[2016-10-09] MEDS: MORPHINE SULFATE 4 MG/ML INJ IV PRN (05:46)
[2016-10-09] MEDS: glipiZIDE 10 MG TAB PO SCH ×2 (05:49→17:38)
[2016-10-09] MEDS: INSULIN ASPART SUPPLEMENTAL SCALE SQ SCH ×4 (05:49→20:20)
[2016-10-09 07:44] LABS: AUTOMATED NEUTROPHIL # 3.4 TH/MM3 (1.8-7.7); BASOPHIL % 0.7 % (0.0-2.0); EOSINOPHIL % 0.4 % (0.0-4.0); HEMATOCRIT 26.5 % (39.0-51.0); LYMPH % 16.7 % (9.0-44.0); LYMPHOCYTE # 0.8 TH/MM3 (1.0-4.8); MEAN CELL VOLUME 78.8 FL (80.0-100.0); MEAN CORPUSCULAR HEMOGLOBIN 25.8 PG (27.0-34.0); MEAN CORPUSCULAR HGB CONC 32.8 % (32.0-36.0); MONO % 11.4 % (0.0-8.0); NEUT % 70.8 % (16.0-70.0); PLATELET COUNT 84 TH/MM3 (150-450); RED BLOOD COUNT 3.36 MIL/MM3 (4.50-5.90); RED CELL DISTRIBUTION WIDTH 15.4 % (11.6-17.2); WHITE BLOOD COUNT 4.8 TH/MM3 (4.0-11.0)
[2016-10-09] MEDS: TAMSULOSIN HCL 0.4 MG CAP PO SCH (07:51)
[2016-10-09] MEDS: METOPROLOL TARTRATE 100 MG TAB PO SCH ×2 (07:51→20:18)
[2016-10-09] MEDS: SODIUM CHLORIDE 0.9% FLUSH 5 ML FLUSH FLUSH SCH ×2 (07:52→20:12)
[2016-10-09 07:57] LABS: BICARBONATE 26.5 MEQ/L (21.0-32.0); POTASSIUM 3.7 MEQ/L (3.5-5.1)
[2016-10-09 07:58] LABS: HEMO FLAGS AUTO DIFF
[2016-10-09 08:19] LABS: INDIRECT BILIRUBIN 0.5 MG/DL (0.0-0.8); TOTAL BILIRUBIN ADULT 0.8 MG/DL (0.2-1.0)
[2016-10-09 10:51] LABS: BANDS 18 % (0-6); BLASTS 1 % (0-0); CORRECTED NUCLEATED RBC 1 /100 WBC (0-0); EOSINOPHILS 1 % (0-4); METAMYELOCYTES 1 % (0-1); NEUTROPHIL # MANUAL DIFF 3.7 TH/MM3 (1.8-7.7); PLATELET ESTIMATE SMEAR LOW (NORMAL); PLATELET MORPHOLOGY NORMAL (NORMAL); POLYS (SEG NEUTROPHILS) 58 % (16-70); SCAN/DIFF FINAL DIFF MANUAL; WBC DIFF SAMPLE 100
--- NOTE | 2016-10-09 13:45 | PD.ONC.PN ---
Subjective Subjective Remarks Afebrile overnight. patient resting comfortably. Objective Data Date Time Temp Pulse Resp B/P Pulse Ox O2 Delivery O2 Flow Rate FiO2 10/09/16 12:00 98.4 95 20 109/64 99 10/09/16 09:22 98 21 10/09/16 08:00 97.3 93 16 141/66 98 10/09/16 04:00 98.1 88 18 96/55 96 10/09/16 00:00 97.3 98 17 110/69 95 10/08/16 20:00 97.4 106 18 104/72 94 10/08/16 19:00 16 10/08/16 17:35 16 10/08/16 16:00 97.9 88 16 149/79 97 10/08/16 15:53 95 21 10/09/16 10/09/16 10/09/16 07:00 15:00 23:00 Intake Total 0 ml Balance 0 ml Result Diagram: 10/09/16 0531 10/09/16 0531 Laboratory Results Laboratory Tests Test 10/09/16 05:31 White Blood Count 4.8 TH/MM3 Red Blood Count 3.36 MIL/MM3 Hemoglobin 8.7 GM/DL Hematocrit 26.5 % Mean Corpuscular Volume 78.8 FL Mean Corpuscular Hemoglobin 25.8 PG Mean Corpuscular Hemoglobin 32.8 % Concent Red Cell Distribution Width 15.4 % Platelet Count 84 TH/MM3 Mean Platelet Volume 7.0 FL Neutrophils (%) (Auto) 70.8 % Lymphocytes (%) (Auto) 16.7 % Monocytes (%) (Auto) 11.4 % Eosinophils (%) (Auto) 0.4 % Basophils (%) (Auto) 0.7 % Neutrophils # (Auto) 3.4 TH/MM3 Lymphocytes # (Auto) 0.8 TH/MM3 Monocytes # (Auto) 0.5 TH/MM3 Eosinophils # (Auto) 0.0 TH/MM3 Basophils # (Auto) 0.0 TH/MM3 CBC Comment AUTO DIFF Differential Total Cells 100 Counted Neutrophils % (Manual) 58 % Band Neutrophils % 18 % Lymphocytes % 13 % Monocytes % 8 % Eosinophils % 1 % Neutrophils # (Manual) 3.7 TH/MM3 Metamyelocytes 1 % Nucleated Red Blood Cells 1 /100 WBC Differential Comment FINAL DIFF MANUAL Blastocytes 1 % Platelet Estimate LOW Platelet Morphology Comment NORMAL Sodium Level 138 MEQ/L Potassium Level 3.7 MEQ/L Chloride Level 101 MEQ/L Carbon Dioxide Level 26.5 MEQ/L Anion Gap 11 MEQ/L Blood Urea Nitrogen 15 MG/DL Creatinine 0.97 MG/DL Estimat Glomerular Filtration 80 ML/MIN Rate Random Glucose 119 MG/DL Calcium Level 7.6 MG/DL Total Bilirubin 0.8 MG/DL Direct Bilirubin 0.3 MG/DL Indirect Bilirubin 0.5 MG/DL Aspartate Amino Transf 91 U/L (AST/SGOT) Alanine Aminotransferase 22 U/L (ALT/SGPT) Alkaline Phosphatase 1145 U/L Total Protein 6.2 GM/DL Albumin 2.4 GM/DL Administered Medications Medications (Trade) Dose Ordered Sig/Annette Route PRN Reason Start Time Stop Time Status Last Admin Dose Admin Sodium Chloride (08/11 NS 1000 ml Inj) 1,000 ml @ 75 mls/hr [id number] IV 10/07/16 00:04 10/09/16 05:24 IV Flush (NS Flush) 2 ml BID FLUSH 10/07/16 09:00 10/07/16 20:00 Ondansetron HCl (Zofran Inj) 4 mg Q6H PRN IVP NAUSEA OR VOMITING 10/07/16 00:15 10/07/16 00:35 Zolpidem Tartrate (Ambien) 5 mg HS PRN PO INSOMNIA 10/07/16 00:15 10/08/16 22:24 Heparin Sodium (Porcine) (Heparin Inj) 5,000 units Q12HR SQ 10/07/16 09:00 Hold 10/08/16 11:11 Morphine Sulfate (Morphine Inj) 4 mg Q3H PRN IV Pain 6-10;if unable to take PO 10/07/16 00:15 10/09/16 05:46 Famotidine (Pepcid) 20 mg HS PO 10/07/16 21:00 10/08/16 21:07 Glipizide (Glucotrol) 10 mg BIDAC PO 10/07/16 09:00 10/08/16 17:36 Metoprolol Tartrate (Lopressor) 100 mg BID PO 10/07/16 09:00 10/09/16 07:51 Tamsulosin HCl (Flomax) 0.4 mg DAILY PO 10/08/16 09:00 10/09/16 07:51 Oxycodone/ Acetaminophen (Percocet 5-325 Mg) 1 tab Q6H PRN PO pain 6-10 10/08/16 17:00 10/09/16 11:35 Objective Remarks GENERAL: Middle aged male, lying in bed, sleeping in nad. SKIN: Warm and dry. HEAD: Normocephalic. EYES: No injection or drainage. NECK: Supple, trachea midline. CARDIOVASCULAR: Regular rate and rhythm RESPIRATORY: Breath sounds equal bilaterally. No accessory muscle use. GASTROINTESTINAL: Abdomen soft, obese EXTREMITIES: No cyanosis Assessment/Plan Problem List: (1) Renal mass Status: Acute Plan: 10/09: awaiting CT guided biopsy of renal mass History: came into the emergency room complaining of abdominal pain and dysuria + weight loss. --CT ab/pelvis + CXR showed large complex partially calcified right renal mass, neoplasm suspected. --CT chest: no mets --Bone scan: no mets Assessment 56y/o male with right kidney mass admitted with abdominal pain and dysuria. h/o non-Hodgkin's lymphoma-->treated with R-CHOP 15 years ago (Dr. Cunha) Hypertension. Diabetes mellitus Attending Statement no new c/o Renal bx today. D/W IR PSA is 2,112 . This is very high and i suspect that he has mets prostate cancer as well. Will need prostate bx to confirm it. Will d/w for bx. Repeat PSA to make sure it is not an error. Bone scan is neg ( ?? False Negative ) will follow. Sharri Stinson Oct 09, 2016 13:45 Bismark Arthur MD Oct 09, 2016 23:33
[2016-10-09] MEDS ORDERED: LIDOCAINE 1%/EPINEPHrine 1:100,000 SOLN 20 ML VIAL ONE (14:31)
[2016-10-09] MEDS ORDERED: MIDAZOLAM HCL 5 MG/5 ML VIAL ONE (15:08)
[2016-10-09] MEDS ORDERED: fentaNYL CITRATE 250 MCG/5 ML AMP ONE (15:08)
--- NOTE | 2016-10-09 17:40 | HHI.PR ---
Subjective Interval History Alert, oriented, extremely anxious, cried during the interview, complaining of extreme fatigue with minimal activity, fearful about the return of malignancy Review of Systems Constitutional Constitutional Remarks 10 systems reviewed and otherwise negative Vitals/Results Intake & Output 10/08/16 10/08/16 10/09/16 15:00 23:00 07:00 Intake Total 0 ml 720 ml Balance 0 ml 720 ml Intake Oral 0 ml 720 ml # Voids 2 1 Vital Signs Vital Signs Date Time Temp Pulse Resp B/P Pulse Ox O2 Delivery O2 Flow Rate FiO2 10/09/16 16:50 86 16 110/64 98 10/09/16 16:35 82 16 109/66 94 10/09/16 16:20 83 16 101/52 97 10/09/16 16:05 98.0 84 16 112/63 94 10/09/16 12:00 98.4 95 20 109/64 99 10/09/16 09:22 98 21 10/09/16 08:00 97.3 93 16 141/66 98 10/09/16 04:00 98.1 88 18 96/55 96 10/09/16 00:00 97.3 98 17 110/69 95 10/08/16 20:00 97.4 106 18 104/72 94 10/08/16 19:00 16 CBC/BMP: 10/09/16 0531 10/09/16 0531 Lab Results Laboratory Tests Test 10/09/16 05:31 White Blood Count 4.8 TH/MM3 Red Blood Count 3.36 MIL/MM3 Hemoglobin 8.7 GM/DL Hematocrit 26.5 % Mean Corpuscular Volume 78.8 FL Mean Corpuscular Hemoglobin 25.8 PG Mean Corpuscular Hemoglobin 32.8 % Concent Red Cell Distribution Width 15.4 % Platelet Count 84 TH/MM3 Mean Platelet Volume 7.0 FL Neutrophils (%) (Auto) 70.8 % Lymphocytes (%) (Auto) 16.7 % Monocytes (%) (Auto) 11.4 % Eosinophils (%) (Auto) 0.4 % Basophils (%) (Auto) 0.7 % Neutrophils # (Auto) 3.4 TH/MM3 Lymphocytes # (Auto) 0.8 TH/MM3 Monocytes # (Auto) 0.5 TH/MM3 Eosinophils # (Auto) 0.0 TH/MM3 Basophils # (Auto) 0.0 TH/MM3 CBC Comment AUTO DIFF Differential Total Cells 100 Counted Neutrophils % (Manual) 58 % Band Neutrophils % 18 % Lymphocytes % 13 % Monocytes % 8 % Eosinophils % 1 % Neutrophils # (Manual) 3.7 TH/MM3 Metamyelocytes 1 % Nucleated Red Blood Cells 1 /100 WBC Differential Comment FINAL DIFF MANUAL Blastocytes 1 % Platelet Estimate LOW Platelet Morphology Comment NORMAL Sodium Level 138 MEQ/L Potassium Level 3.7 MEQ/L Chloride Level 101 MEQ/L Carbon Dioxide Level 26.5 MEQ/L Anion Gap 11 MEQ/L Blood Urea Nitrogen 15 MG/DL Creatinine 0.97 MG/DL Estimat Glomerular Filtration 80 ML/MIN Rate Random Glucose 119 MG/DL Calcium Level 7.6 MG/DL Total Bilirubin 0.8 MG/DL Direct Bilirubin 0.3 MG/DL Indirect Bilirubin 0.5 MG/DL Aspartate Amino Transf 91 U/L (AST/SGOT) Alanine Aminotransferase 22 U/L (ALT/SGPT) Alkaline Phosphatase 1145 U/L Total Protein 6.2 GM/DL Albumin 2.4 GM/DL Physical Exam General General Appearance: Well Nourished, No Acute Distress, Comfortable, Obese Eyes Eye Exam: Pupils Equal, Pupils Reactive Ears & Nose Ears & Nose Exam: Tympanic Membranes Normal Throat Throat Exam: Oral Mucosa [place] & Moist Neck Neck Exam: Neck Supple, Trachea Midline Pulmonary Resp Exam: Clear Bilaterally, Breath Sounds Equal, No Distress Cardiology CV Exam: Regular, Normal Sinus Rhythm Gastrointestinal/Abdomen GI Exam: Soft, Bowel Sounds Present Genitourinary Remarks Clean dry band aid on the right flank where he had his biopsy done 10/09/16 Musculoskeletal MS Exam: Normal Tone Integumentary Skin Exam: Clear, Warm, Dry Extremeties Extremities Exam: No Edema Neurologic Neuro Exam: Alert, Awake, Oriented, Speech Clear, Moving All Extremities Psychiatric Psych Exam: Appropriate Responses VTE Prophylaxis VTE Prophylaxis Device: SCDs Assessment/Plan Assessment/Plan DIAGNOSTIC IMPRESSION . Abdominal pain on admission, dysuria . Right renal mass possible metastatic cancer. Status post biopsy today, the biopsy report is still pending . Question recurrence of non-Hodgkin's lymphoma. . Diabetes . Hypertension . Anxiety . Elevated alkaline phosphatase . Mildly elevated creatinine PLAN Oncology and urology following large complex right renal Mass Elevated PSA Evidence of sclerotic bone metastases Cannot rule out primary prostate malignancy urology would like to proceed with biopsy first CT chest negative Bone scan neg for metastatic disease, however this normally only shows lytic lesions With this patient the concern is about sclerotic lesions monitor creatinine Flomax to follow holding Josemanuel i and Metformin repeat LFTS in am DVT prophylaxis, GI prophylaxis. discussed with the patient discussed with nursing staff. Further plan with pathology report Hubert Nunez MD Oct 09, 2016 17:40
[2016-10-09] MEDS: FAMOTIDINE 20 MG TAB PO SCH (20:18)
[2016-10-10] VITALS: BP 92/57; PULSE 58; RESP 18; TEMP 97.6; O2SAT 97
[2016-10-10 04:00] VITALS: BP 118/63; PULSE 80; RESP 16; TEMP 97.8; O2SAT 97
[2016-10-10] MEDS: glipiZIDE 10 MG TAB PO SCH ×2 (06:00→16:10)
[2016-10-10] MEDS: oxyCODONE/ACETAMINOPHEN 5 MG/325 MG TAB PO PRN ×4 (06:00→22:09)
[2016-10-10] MEDS: INSULIN ASPART SUPPLEMENTAL SCALE SQ SCH ×4 (06:01→20:44)
--- NOTE | 2016-10-10 07:49 | RADRPT ---
EXAM DATE/TIME: 10/09/2016 15:14 [facility] COMPARISON: No previous studies available for comparison. INDICATIONS : Right renal mass. SEDATION TIME: 30 minutes BIOPSY SITE: Right renal MEDICATION(S): 1.) 3 mg midazolam (Versed) IV 2.) 150 mcg fentanyl (Sublimaze) IV DEVICE(S): 1.) 16 gauge Temno core biopsy needle MEDICAL HISTORY : Cardiovascular disease. Hypertension. Diabetes mellitus type 2. Non-Hodgkins Lymphoma. SURGICAL HISTORY : Appendectomy. ENCOUNTER: Initial ACUITY: 1 day PAIN SCORE: 0/10 LOCATION: Right flank A total of six core specimen(s) were obtained and sent to the laboratory for pathologic evaluation. PROCEDURE: 1. CT guided renal biopsy. 2. Conscious sedation with continuous EKG and oximetry monitoring. 3. EKG and oximetry remained stable throughout the procedure. Prior to the procedure informed consent was obtained. Any appropriate prior imaging studies were rev iewed. Using automated exposure control and adjustment of the mA and/or kV according to patient size, radiat ion dose was kept as low as reasonably achievable to obtain optimal diagnostic quality images. The site was prepped in a sterile fashion. Full sterile technique was used, including cap, mask, ansley rile gloves and gown and a large sterile sheet. Hand hygiene and 2% chlorhexidine and/or betadine/al cohol prep was utilized per protocol for cutaneous antisepsis. The skin and subcutaneous tissues wer e infiltrated with local anesthetic solution. With CT guidance the previously identified target was localized. Biopsy was performed using the presc ribed needle as above. Adequate hemostasis was obtained with compression at the puncture site. Follow-up CT scan reveals no hemorrhage. The patient tolerated the procedure well and there were no complications. The patient was returned to the Radiology Outpatient Unit in stable condition. CONCLUSION: Uncomplicated CT guided biopsy of the complex cystic structure containing extensive calcification. Goldy Go MD on October 10, 2016 at 7:47 Board Certified Radiologist. This report was verified electronically.
[2016-10-10 08:00] VITALS: BP 116/61; PULSE 78; RESP 16; TEMP 97.3; O2SAT 97
[2016-10-10] MEDS: SODIUM CHLOR 0.45% 1000 ML INJ 1,000 ML IV SCH ×2 (08:04→20:49)
[2016-10-10] MEDS: TAMSULOSIN HCL 0.4 MG CAP PO SCH (08:41)
[2016-10-10] MEDS: METOPROLOL TARTRATE 100 MG TAB PO SCH ×2 (08:41→20:44)
[2016-10-10] MEDS: SODIUM CHLORIDE 0.9% FLUSH 5 ML FLUSH FLUSH SCH ×2 (08:41→20:45)
--- NOTE | 2016-10-10 11:52 | PD.ONC.PN ---
Subjective Subjective Remarks Afebrile overnight. Patient anxious after hearing PSA results. He is eager to go home. Objective Data Date Time Temp Pulse Resp B/P Pulse Ox O2 Delivery O2 Flow Rate FiO2 10/10/16 08:00 97.3 78 16 116/61 97 10/10/16 04:00 97.8 80 16 118/63 97 10/10/16 00:00 97.6 58 18 92/57 97 10/09/16 20:00 99.0 95 16 111/62 98 10/09/16 17:00 96.8 87 20 122/58 99 10/09/16 16:50 86 16 110/64 98 10/09/16 16:35 82 16 109/66 94 10/09/16 16:20 83 16 101/52 97 10/09/16 16:05 98.0 84 16 112/63 94 10/09/16 12:00 98.4 95 20 109/64 99 Result Diagram: 10/09/1631 10/09/16530 Laboratory Results Laboratory Tests Test 10/10/16 06:04 Prostate Specific Antigen 1990.74 NG/ML Screen Administered Medications Medications (Trade) Dose Ordered Sig/Annette Route PRN Reason Start Time Stop Time Status Last Admin Dose Admin Sodium Chloride (08/11 NS 1000 ml Inj) 1,000 ml @ 75 mls/hr [id number] IV 10/07/16 00:04 10/10/16 08:04 IV Flush (NS Flush) 2 ml BID FLUSH 10/07/16 09:00 10/07/16 20:00 Ondansetron HCl (Zofran Inj) 4 mg Q6H PRN IVP NAUSEA OR VOMITING 10/07/16 00:15 10/07/16 00:35 Zolpidem Tartrate (Ambien) 5 mg HS PRN PO INSOMNIA 10/07/16 00:15 10/08/16 22:24 Heparin Sodium (Porcine) (Heparin Inj) 5,000 units Q12HR SQ 10/07/16 09:00 Hold 10/08/16 11:11 Morphine Sulfate (Morphine Inj) 4 mg Q3H PRN IV Pain 6-10;if unable to take PO 10/07/16 00:15 10/09/16 05:46 Famotidine (Pepcid) 20 mg HS PO 10/07/16 21:00 10/09/16 20:18 Glipizide (Glucotrol) 10 mg BIDAC PO 10/07/16 09:00 10/10/16 06:00 Metoprolol Tartrate (Lopressor) 100 mg BID PO 10/07/16 09:00 10/10/16 08:41 Tamsulosin HCl (Flomax) 0.4 mg DAILY PO 10/08/16 09:00 10/10/16 08:41 Oxycodone/ Acetaminophen (Percocet 5-325 Mg) 1 tab Q6H PRN PO pain 6-10 10/08/16 17:00 10/10/16 06:00 Objective Remarks GENERAL: Middle aged male, sitting up in bed in nad. SKIN: Warm and dry. HEAD: Normocephalic. EYES: No injection or drainage. NECK: Supple, trachea midline. CARDIOVASCULAR: Regular rate and rhythm RESPIRATORY: Breath sounds equal bilaterally. No accessory muscle use. GASTROINTESTINAL: Abdomen soft, obese EXTREMITIES: No cyanosis. Assessment/Plan Problem List: (1) Renal mass Status: Acute Plan: 10/10: PSA elevated. kidney mass pathology pending. will need follow up in clinic. fs faxed to npr. History: came into the emergency room complaining of abdominal pain and dysuria + weight loss. --CT ab/pelvis + CXR showed large complex partially calcified right renal mass, neoplasm suspected. --CT chest: no mets --Bone scan: no mets Assessment 56y/o male with right kidney mass admitted with abdominal pain and dysuria. h/o non-Hodgkin's lymphoma-->treated with R-CHOP 15 years ago (Dr. Cunha) Hypertension. Diabetes mellitus Attending Statement c/o shoulder pain Repeat PSA is still high. most likely he has mets prostate ca. Bone scan is neg. Will get MRI spine. Kidney bx is RCC. await input. ? resection The exam, history, and the medical decision-making described in the above note were completed with the assistance of the mid-level provider. I reviewed and agree with the findings presented. I attest that I had a [id number] encounter with the patient on the same day, and personally performed and documented my assessment and findings in the medical record. Sharri Stinson Oct 10, 2016 11:52 Bismark Arthur MD Oct 10, 2016 16:59
[2016-10-10 12:00] VITALS: BP 112/63; PULSE 69; RESP 16; TEMP 96.4; O2SAT 98
--- NOTE | 2016-10-10 12:42 | HHI.PR ---
Subjective Remarks c/o aches and pains all over. He thinks its from the bed. Voiding better with Flomax. Less dysuria, stronger stream. Tolerated Biopsy well. Wants to go home Objective Vital Signs Vital Signs Date Time Temp Pulse Resp B/P Pulse Ox O2 Delivery O2 Flow Rate FiO2 10/10/16 08:00 97.3 78 16 116/61 97 10/10/16 04:00 97.8 80 16 118/63 97 10/10/16 00:00 97.6 58 18 92/57 97 10/09/16 20:00 99.0 95 16 111/62 98 10/09/16 17:00 96.8 87 20 122/58 99 10/09/16 16:50 86 16 110/64 98 10/09/16 16:35 82 16 109/66 94 10/09/16 16:20 83 16 101/52 97 10/09/16 16:05 98.0 84 16 112/63 94 I/O 10/09/16 10/09/16 10/09/16 10/10/16 10/10/16 10/10/16 07:00 15:00 23:00 07:00 15:00 23:00 Intake Total 0 ml 892 ml 1222 ml Balance 0 ml 892 ml 1222 ml Intake Oral 0 ml 400 ml 300 ml IV Total 492 ml 922 ml # Voids 1 3 1 1 # Bowel Movements 0 0 0 Result Diagram: 10/09/16 0531 10/09/16 0531 Objective Remarks NAD. A/O x 3 abd soft Assessment and Plan Problem List: (1) Renal mass ICD Code: N28.89 Status: Acute (2) Elevated PSA ICD Code: R97.20 Status: Acute Assessment and Plan Continue Flomax 0.4 mg daily. F/U on pathology results from Renal Mass Biopsy Concerned with elevated PSA, sclerotic bone changes on CT and elevated alk phos , he has metastatic prostate cancer. Have seen many false negatives with Bone Scan. Ideally, a Sodium Fluoride PET CT or Axumin PET CT have a better sensitivity for Metastatic Prostate Cancer. These can be done as outpatient. Otherwise, a full body MRI would be an acceptable alternative. A prostate biopsy can be done as outpatient. OK for d/c home if ok with other services. F/U as outpatient. Oni Suarez MD Oct 10, 2016 12:42
[2016-10-10] MEDS ORDERED: TAMS5CAP PO (13:59)
[2016-10-10] MEDS ORDERED: OXYC1TAB63 PO (13:59)
[2016-10-10 16:00] VITALS: BP 139/74; PULSE 75; RESP 16; TEMP 97; O2SAT 99
--- NOTE | 2016-10-10 18:44 | HHI.PR ---
Subjective Interval History Alert, oriented, pain well-controlled, Review of Systems Constitutional Constitutional Remarks 10 systems reviewed and otherwise negative Vitals/Results Intake & Output 10/09/16 10/09/16 10/10/16 15:00 23:00 07:00 Intake Total 0 ml 892 ml 1222 ml Balance 0 ml 892 ml 1222 ml Intake Oral 0 ml 400 ml 300 ml IV Total 492 ml 922 ml # Voids 3 1 1 # Bowel Movements 0 0 0 Vital Signs Vital Signs Date Time Temp Pulse Resp B/P Pulse Ox O2 Delivery O2 Flow Rate FiO2 10/10/16 16:00 97.0 75 16 139/74 99 10/10/16 12:00 96.4 69 16 112/63 98 10/10/16 08:00 97.3 78 16 116/61 97 10/10/16 04:00 97.8 80 16 118/63 97 10/10/16 00:00 97.6 58 18 92/57 97 10/09/16 20:00 99.0 95 16 111/62 98 CBC/BMP: 10/09/16 0531 10/09/16 0531 Lab Results Laboratory Tests Test 10/10/16 06:04 Prostate Specific Antigen 1990.74 NG/ML Screen Physical Exam General General Appearance: Well Nourished, No Acute Distress, Comfortable, Obese Eyes Eye Exam: Pupils Equal, Pupils Reactive Ears & Nose Ears & Nose Exam: Tympanic Membranes Normal Throat Throat Exam: Oral Mucosa [place] & Moist Neck Neck Exam: Neck Supple, Trachea Midline Pulmonary Resp Exam: Clear Bilaterally, Breath Sounds Equal, No Distress Cardiology CV Exam: Regular, Normal Sinus Rhythm Gastrointestinal/Abdomen GI Exam: Soft, Bowel Sounds Present Genitourinary Remarks Clean dry band aid on the right flank where he had his biopsy done 10/09/16 Musculoskeletal MS Exam: Normal Tone Integumentary Skin Exam: Clear, Warm, Dry Extremeties Extremities Exam: No Edema Neurologic Neuro Exam: Alert, Awake, Oriented, Speech Clear, Moving All Extremities Psychiatric Psych Exam: Appropriate Responses VTE Prophylaxis VTE Prophylaxis Device: SCDs Assessment/Plan Assessment/Plan DIAGNOSTIC IMPRESSION . Abdominal pain on admission, dysuria . Calcified Right renal area mass . Possible prostate cancer , possible to [facility] . Status post biopsy 10/09/16 , the biopsy reported as renal cell cancer . History of non-Hodgkin's lymphoma. . Diabetes . Hypertension . Anxiety . Elevated alkaline phosphatase . Mildly elevated creatinine PLAN Oncology and urology following He needs further oncology workup Possibly initiating his treatment monitor creatinine Flomax holding Josemanuel i and Metformin DVT prophylaxis, GI prophylaxis. discussed with the patient discussed with nursing staff. Discussed with oncology team Hubert Nunez MD Oct 10, 2016 18:44
[2016-10-10 20:00] VITALS: BP_SYST 132; BP_SYST 134; BP_DIAS 70; BP_DIAS 76; PULSE 82; PULSE 96; RESP 19; TEMP 97.2; TEMP 97.7; O2SAT 98
[2016-10-10] MEDS: FAMOTIDINE 20 MG TAB PO SCH (20:44)
[2016-10-11] VITALS: BP 118/60; PULSE 78; RESP 18; TEMP 99.7; O2SAT 97
[2016-10-11 04:00] VITALS: BP 132/70; PULSE 82; RESP 19; TEMP 97.2; O2SAT 98
[2016-10-11] MEDS: oxyCODONE/ACETAMINOPHEN 5 MG/325 MG TAB PO PRN ×4 (04:12→23:20)
[2016-10-11] MEDS: glipiZIDE 10 MG TAB PO SCH ×2 (05:36→15:23)
[2016-10-11] MEDS: INSULIN ASPART SUPPLEMENTAL SCALE SQ SCH ×4 (05:38→20:09)
--- NOTE | 2016-10-11 07:39 | PD.ONC.PN ---
Subjective Subjective Remarks Afebrile overnight. Pt resting in bed awake on approach. He states he continues to have bilateral hip and shoulder pain. He gets SOB with activity. He has no more burning with urination. Objective Data Date Time Temp Pulse Resp B/P Pulse Ox O2 Delivery O2 Flow Rate FiO2 10/11/16 04:00 97.2 82 19 132/70 98 10/11/16 00:00 99.7 78 18 118/60 97 10/10/16 20:00 97.7 96 19 134/76 98 10/10/16 16:00 97.0 75 16 139/74 99 10/10/16 12:00 96.4 69 16 112/63 98 10/10/16 08:00 97.3 78 16 116/61 97 Result Diagram: 10/09/1631 10/09/16530 Administered Medications Medications (Trade) Dose Ordered Sig/Annette Route PRN Reason Start Time Stop Time Status Last Admin Dose Admin Sodium Chloride (1/2 NS 1000 ml Inj) 1,000 ml @ 75 mls/hr [id number] IV 10/07/16 00:04 10/10/16 20:49 IV Flush (NS Flush) 2 ml BID FLUSH 10/07/16 09:00 10/10/16 20:45 Ondansetron HCl (Zofran Inj) 4 mg Q6H PRN IVP NAUSEA OR VOMITING 10/07/16 00:15 10/07/16 00:35 Zolpidem Tartrate (Ambien) 5 mg HS PRN PO INSOMNIA 10/07/16 00:15 10/08/16 22:24 Heparin Sodium (Porcine) (Heparin Inj) 5,000 units Q12HR SQ 10/07/16 09:00 Hold 10/08/16 11:11 Morphine Sulfate (Morphine Inj) 4 mg Q3H PRN IV Pain 6-10;if unable to take PO 10/07/16 00:15 10/09/16 05:46 Famotidine (Pepcid) 20 mg HS PO 10/07/16 21:00 10/10/16 20:44 Glipizide (Glucotrol) 10 mg BIDAC PO 10/07/16 09:00 10/11/16 05:36 Metoprolol Tartrate (Lopressor) 100 mg BID PO 10/07/16 09:00 10/10/16 20:44 Tamsulosin HCl (Flomax) 0.4 mg DAILY PO 10/08/16 09:00 10/10/16 08:41 Oxycodone/ Acetaminophen (Percocet 5-325 Mg) 1 tab Q6H PRN PO pain 6-10 10/08/16 17:00 10/11/16 04:12 Objective Remarks GENERAL: Middle aged male, lying in bed in no distress. SKIN: Warm and dry. HEAD: Normocephalic. EYES: No injection or drainage. NECK: Supple, trachea midline. CARDIOVASCULAR: Regular rate and rhythm RESPIRATORY: Breath sounds equal bilaterally. No accessory muscle use. GASTROINTESTINAL: Abdomen soft, obese EXTREMITIES: No cyanosis. Trace LE edema. Assessment/Plan Problem List: (1) Renal mass Status: Acute Plan: 10/11: MRI spine ordered. There is concern for mets given the extreme elevation of the PSA. If positive for mets, we will get biopsy prior to discharge. History: came into the emergency room complaining of abdominal pain and dysuria + weight loss. --CT ab/pelvis + CXR showed large complex partially calcified right renal mass, neoplasm suspected. --CT chest: no mets --Bone scan: no mets Assessment 56y/o male with right kidney mass admitted with abdominal pain and dysuria. h/o non-Hodgkin's lymphoma-->treated with R-CHOP 15 years ago (Dr. Cunha) Hypertension. Diabetes mellitus PSA greater than 1900. Complex/calcified right renal mass. Plan The exam, history, and the medical decision-making described in the above note were completed with the assistance of the mid-level provider. I reviewed and agree with the findings presented. I attest that I had a [id number] encounter with the patient on the same day, and personally performed and documented my assessment and findings in the medical record. Patient seen and examined, labs, scans, medications and vital signs reviewed. Status post CT-guided biopsy of right renal mass on 10/09/2016. Pathology reports are pending at this time. Imaging studies including MRI of the thoracic spine were reviewed; he has multiple lesions concerning for metastatic disease. Coupled with the elevated PSA levels (greater than 1900) and diffuse bony lesions this man has metastatic prostate carcinoma until proven otherwise. It is possible the calcified complex cyst involving the right kidney may be a red christopher. If the biopsy of the right kidney is nondiagnostic or non-contributory to his care, he will require biopsy 5 to the prostate or one of the tax representative lesions in the thoracic spine. Continue ongoing care. Mary Price Oct 11, 2016 07:39 Tramaine Pete MD Oct 11, 2016 13:46
[2016-10-11 08:00] VITALS: BP 118/76; PULSE 68; RESP 20; TEMP 97.1; O2SAT 98
--- NOTE | 2016-10-11 08:40 | RADRPT ---
EXAM DATE/TIME: 10/11/2016 07:37 [facility] COMPARISON: BONE SCAN (WHOLE BODY), October 07, 2016, 13:45. CT ABDOMEN & PELVIS W CONTRAST, October 06, 2016, 20:38. CT THORAX W/O CONTRAST, October 07, 2016, 13:12. INDICATIONS : Metastatic disease. MEDICAL HISTORY : Multiple myeloma SURGICAL HISTORY : Appendectomy. ENCOUNTER: Initial ACUITY: 1 day PAIN SCORE: 4/10 LOCATION: [place] TECHNIQUE: Multiplanar multisequence MRI of the thoracic spine was performed. FINDINGS: VERTEBRA: There is diffuse abnormal decreased T1 signal throughout the vertebral bodies. Additionally, there ar e innumerable areas of focal increased T2 signal throughout the vertebral bodies, posterior elements, and visualized portions of the ribs. Vertebral body height is maintained. Endplate osteophytes are p resent anteriorly at multiple levels. ALIGNMENT: No anterolisthesis or retrolisthesis. CORD: Normal position and configuration. T1-T2: No disc herniation, canal stenosis, or neural foraminal stenosis. T2-T3: No disc herniation, canal stenosis, or neural foraminal stenosis. T3-T4: No disc herniation, canal stenosis, or neural foraminal stenosis. T4-T5: No disc herniation, canal stenosis, or neural foraminal stenosis. T5-T6: No disc herniation, canal stenosis, or neural foraminal stenosis. T6-T7: No disc herniation, canal stenosis, or neural foraminal stenosis. T7-T8: No disc herniation, canal stenosis, or neural foraminal stenosis. T8-T9: No disc herniation, canal stenosis, or neural foraminal stenosis. T9-T10: No disc herniation, canal stenosis, or neural foraminal stenosis. T10-T11: No disc herniation, canal stenosis, or neural foraminal stenosis. T11-T12: No disc herniation, canal stenosis, or neural foraminal stenosis. T12-L1: No disc herniation, canal stenosis, or neural foraminal stenosis. CONCLUSION: 1. Diffusely abnormal bone marrow signal with decreased T1 signal and innumerable patchy areas of inc reased T2 signal. Findings are strongly suggestive of diffuse osseous metastatic disease. 2. No canal or neural foraminal stenosis is identified. Piyush Goncalves MD on October 11, 2016 at 8:29 Board Certified Radiologist. This report was verified electronically.
[2016-10-11] MEDS: TAMSULOSIN HCL 0.4 MG CAP PO SCH (09:51)
[2016-10-11] MEDS: METOPROLOL TARTRATE 100 MG TAB PO SCH ×2 (09:51→20:07)
[2016-10-11] MEDS: SODIUM CHLORIDE 0.9% FLUSH 5 ML FLUSH FLUSH SCH ×2 (09:57→20:10)
[2016-10-11 12:00] VITALS: BP 108/67; PULSE 68; RESP 20; TEMP 97; O2SAT 97
[2016-10-11] MEDS: SODIUM CHLOR 0.45% 1000 ML INJ 1,000 ML IV SCH (13:15)
--- NOTE | 2016-10-11 15:49 | HHI.PR ---
Subjective Remarks Afebrile overnight. Pt resting in bed awake. Family in room. He continues to have bilateral hip and shoulder pain. He gets SOB with activity. He has no more burning with urination. Objective Objective Results - Vital Signs Date Time Temp Pulse Resp B/P Pulse Ox O2 Delivery O2 Flow Rate FiO2 10/11/16 12:00 97.0 68 20 108/67 97 10/11/16 08:00 97.1 68 20 118/76 98 10/11/16 04:00 97.2 82 19 132/70 98 10/11/16 00:00 99.7 78 18 118/60 97 10/10/16 20:00 97.7 96 19 134/76 98 10/10/16 16:00 97.0 75 16 139/74 99 I/O 10/10/16 10/10/16 10/10/16 10/11/16 10/11/16 10/11/16 07:00 15:00 23:00 07:00 15:00 23:00 Intake Total 1222 ml 600 ml 1224 ml 883 ml 1320 ml Output Total 330 ml 300 ml Balance 1222 ml 600 ml 1224 ml 553 ml 1020 ml Intake Oral 300 ml 600 ml 480 ml 240 ml 1320 ml IV Total 922 ml 744 ml 643 ml Output Urine Total 330 ml 300 ml # Voids 1 5 3 2 2 # Bowel Movements 0 0 Result Diagram: 10/09/1631 10/09/16 0531 ROS General: No: Fatigue, Weakness, Other HEENT: No: Sore Throat, Dysphagia, Other Cardiac: No: Chest Pain, Edema, Palpitations, Other Pulmonary: No: Cough, SOB, Wheezing, Other GI: No: Abdominal Pain, BM, Diarrhea, N/V, Other /COOK FISH EGGS: No: Dysuria, Urgency, Other Neuro/MS: Other (vanessa hip and shoulder pain.), No: Lightheaded, Confusion Psych: No: Anxiety, Depression, Other Skin: No: Itching, Rash, Other Physical Exam Physical Exam PHYSICAL EXAMINATION GENERAL: This is a well-developed, well-nourished male who appears to be in no acute distress. He is alert and awake. HEAD: Normocephalic without any lesion or mass noted. Facial features appear symmetric. EYES: [place], Normal eye movement, no icterus. OROPHARYNGEAL: Oropharynx without erythema or edema. MOUTH/THROAT: Buccal mucosa is moist. NECK: Supple. No nuchal rigidity or lymphadenopathy. Trachea midline without deviation. Thyroid not palpable, no bruits appreciated. CARDIAC: Regular rhythm, regular rate, S1 and S2 are heard. LUNGS: Clear to auscultation bilaterally. ABDOMEN: Soft, nontender, no organomegaly or masses. Bowel sounds are heard in all four quadrants. No rebound. No guarding. EXTREMITIES: No edema. Pulses equal bilateral. NEUROLOGICAL: Patient mood and affect appropriate. No focal deficits. SKIN:Warm and moist PSYCH: Mood and affect appropriate A/P Assessment and Plan DIAGNOSTIC IMPRESSION . Abdominal pain on admission, dysuria . Calcified Right renal mass . Possible metastatic prostate cancer . Status post biopsy 10/09/16 , the biopsy reported as renal cell cancer . History of non-Hodgkin's lymphoma. . Diabetes . Hypertension . Anxiety . Elevated alkaline phosphatase . Mildly elevated creatinine PLAN Oncology and urology following MRI Thoracic spine strongly suggestive for mets. Per oncology patient might need prostate biopsy as the recent testing along with highly elevated PSA suggest metastatic prostate cancer. monitor creatinine Flomax holding Josemanuel i and Metformin DVT prophylaxis, GI prophylaxis. discussed with the patient/family. discussed with nursing staff. Discussed with oncology team. AM BMP. Gay Looney MD Oct 11, 2016 15:49
[2016-10-11 16:00] VITALS: BP 141/78; PULSE 78; RESP 18; TEMP 97; O2SAT 98
[2016-10-11 20:00] VITALS: BP 119/61; PULSE 77; RESP 18; TEMP 97.5; O2SAT 95
[2016-10-11] MEDS: FAMOTIDINE 20 MG TAB PO SCH (20:07)
[2016-10-11] MEDS: ZOLPIDEM TARTRATE 5 MG TAB PO PRN (23:19)
[2016-10-12] VITALS: BP 107/59; PULSE 72; RESP 19; TEMP 97.8; O2SAT 98
[2016-10-12] MEDS: SODIUM CHLOR 0.45% 1000 ML INJ 1,000 ML IV SCH ×2 (01:20→13:24)
[2016-10-12 04:00] VITALS: BP 110/51; PULSE 76; RESP 19; TEMP 98; O2SAT 96
[2016-10-12] MEDS: glipiZIDE 10 MG TAB PO SCH ×2 (06:05→16:57)
[2016-10-12] MEDS: SENNOSIDES 8.6 MG TAB PO PRN (06:06)
[2016-10-12] MEDS: oxyCODONE/ACETAMINOPHEN 5 MG/325 MG TAB PO PRN ×3 (06:06→20:01)
[2016-10-12] MEDS: INSULIN ASPART SUPPLEMENTAL SCALE SQ SCH ×4 (06:25→20:09)
[2016-10-12 08:00] VITALS: BP 128/68; PULSE 90; RESP 22; TEMP 96.5; O2SAT 98
[2016-10-12] MEDS: SODIUM CHLORIDE 0.9% FLUSH 5 ML FLUSH FLUSH SCH ×2 (08:37→20:01)
[2016-10-12 08:38] LABS: BICARBONATE 25.4 MEQ/L (21.0-32.0); POTASSIUM 3.8 MEQ/L (3.5-5.1)
[2016-10-12] MEDS: METOPROLOL TARTRATE 100 MG TAB PO SCH ×2 (08:41→20:01)
[2016-10-12] MEDS: TAMSULOSIN HCL 0.4 MG CAP PO SCH (08:41)
[2016-10-12 12:00] VITALS: BP 110/72; PULSE 80; RESP 20; TEMP 97.6; O2SAT 97
[2016-10-12 16:00] VITALS: BP 123/68; PULSE 116; RESP 22; TEMP 96.7; O2SAT 98
--- NOTE | 2016-10-12 16:47 | HHI.PR ---
Subjective Subjective Remarks C/O left knee pain "I think it's gout" voiding okay no dysuria no fever eating ok no complaints family at bsd Review of Systems Constitutional Constitutional Remarks 12-point review of systems completed, negative except as noted above Vitals/Results Intake & Output 10/11/16 10/11/16 10/12/16 15:00 23:00 07:00 Intake Total 1751 ml 480 ml 1120 ml Output Total 300 ml 480 ml Balance 1451 ml 480 ml 640 ml Intake Oral 1320 ml 480 ml IV Total 431 ml 1120 ml Output Urine Total 300 ml 480 ml # Voids 2 6 3 Vital Signs Vital Signs Date Time Temp Pulse Resp B/P Pulse Ox O2 Delivery O2 Flow Rate FiO2 10/12/16 12:00 97.6 80 20 110/72 97 10/12/16 08:00 96.5 90 22 128/68 98 10/12/16 04:00 98.0 76 19 110/51 96 10/12/16 00:00 97.8 72 19 107/59 98 10/11/16 20:00 97.5 77 18 119/61 95 CBC/BMP: 10/09/16 0531 10/12/16 0708 Lab Results Laboratory Tests Test 10/12/16 07:08 Sodium Level 138 MEQ/L Potassium Level 3.8 MEQ/L Chloride Level 102 MEQ/L Carbon Dioxide Level 25.4 MEQ/L Anion Gap 11 MEQ/L Blood Urea Nitrogen 11 MG/DL Creatinine 0.88 MG/DL Estimat Glomerular Filtration 89 ML/MIN Rate Random Glucose 107 MG/DL Calcium Level 7.4 MG/DL Protein Corrected Calcium 8.0 MG/DL Total Protein 6.0 GM/DL Physical Exam General General Appearance: Well Nourished, No Acute Distress, Comfortable, Obese Eyes Eye Exam: Pupils Equal, Pupils Reactive Ears & Nose Ears & Nose Exam: Tympanic Membranes Normal, Nasal Mucosa [place] Throat Throat Exam: Oral Mucosa [place] & Moist Neck Neck Exam: Neck Supple, Trachea Midline Pulmonary Resp Exam: Clear Bilaterally, Breath Sounds Equal, No Distress Cardiology CV Exam: Normal Sinus Rhythm, Irregular, Arrhythmia Gastrointestinal/Abdomen GI Exam: Soft, Bowel Sounds Present, Non-Distended Musculoskeletal MS Exam: Normal Tone Integumentary Skin Exam: Clear, Warm, Dry Extremeties Extremities Exam: No Edema, Pedal Pulses Palpable Neurologic Neuro Exam: Alert, Awake, Oriented, Speech Clear, Moving All Extremities Psychiatric Psych Exam: Appropriate Responses VTE Prophylaxis VTE Prophylaxis Device: SCDs Assessment/Plan Assessment/Plan DIAGNOSTIC IMPRESSION . Abdominal pain on admission, dysuria . Calcified Right renal area mass possible malignancy . Possible prostate cancer . Status post biopsy 10/09/16 . History of non-Hodgkin's lymphoma. . Diabetes . Hypertension . Anxiety . Elevated alkaline phosphatase . Mildly elevated creatinine . Osteoarthritis, left knee pain . Anemia . Irregular heart beat PLAN appreciate oncology input Thoracic spine MRI + poss. metastatic disease elevated PSA, poss. prostate cancer as primary with mets to spine f/u bx results Evaluated per urology continue Flomax, urine sx improved Per urology recommendations, may benefit from Sodium Fluoride PET CT or Axumin PET CT as they have a better sensitivity for Metastatic Prostate Cancer. These can be done as outpatient. Otherwise, a full body MRI would be an acceptable alternative. A prostate biopsy can be done as outpatient. Has cleared for discharge Continue to hold STAR/Metformin renal function stable DC IVF Anemia, low iron stores noted check stools for OB HH trending down Thrombocytopenia monitor plat, trending down Accu-Cheks before meals and at bedtime with insulin therapy Continue with home meds Noted with irregular heartbeat We'll check EKG Avoid anticoagulants for now, SCDs okay Pepcid for GI prophylaxis Physical therapy for evaluation and treatment Complaining of right knee pain, possibly gout, we'll check uric acid Continue with Tylenol as needed for pain D/W RN D/W pt, family D/W Dr. Looney This patient was seen by myself and Dr. Looney, this note is written on her behalf Chelsi Boss Oct 12, 2016 16:47
[2016-10-12 20:00] VITALS: BP 127/60; PULSE 109; RESP 18; TEMP 97.1; O2SAT 97
[2016-10-12] MEDS: FAMOTIDINE 20 MG TAB PO SCH (20:03)
[2016-10-12] MEDS: ZOLPIDEM TARTRATE 5 MG TAB PO PRN (20:03)
[2016-10-13] VITALS (12 sets, daily range): BP systolic 99–149; BP diastolic 56–74; PULSE 60–92; RESP 16–18; TEMP 95.4–97.5; O2SAT 97–100
[2016-10-13] MEDS: oxyCODONE/ACETAMINOPHEN 10 MG/325 MG TAB PO PRN ×5 (00:29→21:04)
[2016-10-13] MEDS ORDERED: oxyCODONE/ACETAMINOPHEN 5 MG/325 MG TAB PO PRN (00:30)
[2016-10-13] MEDS: glipiZIDE 10 MG TAB PO SCH ×2 (06:06→17:23)
[2016-10-13] MEDS: INSULIN ASPART SUPPLEMENTAL SCALE SQ SCH ×4 (06:06→21:03)
[2016-10-13 07:53] LABS: HEMATOCRIT 21.9 % (39.0-51.0); MEAN CELL VOLUME 79.8 FL (80.0-100.0); MEAN CORPUSCULAR HGB CONC 32.6 % (32.0-36.0); PLATELET COUNT 73 TH/MM3 (150-450); RED BLOOD COUNT 2.75 MIL/MM3 (4.50-5.90); RED CELL DISTRIBUTION WIDTH 16.1 % (11.6-17.2); WHITE BLOOD COUNT 3.9 TH/MM3 (4.0-11.0)
[2016-10-13 07:58] LABS: REVIEW FLAG FINAL
[2016-10-13 08:19] LABS: BICARBONATE 25.8 MEQ/L (21.0-32.0); POTASSIUM 4.1 MEQ/L (3.5-5.1); URIC ACID 8.7 MG/DL (2.6-7.2)
[2016-10-13] MEDS: TAMSULOSIN HCL 0.4 MG CAP PO SCH (09:03)
[2016-10-13] MEDS: METOPROLOL TARTRATE 100 MG TAB PO SCH ×2 (09:03→20:54)
[2016-10-13] MEDS: SODIUM CHLORIDE 0.9% FLUSH 5 ML FLUSH FLUSH SCH ×2 (09:04→20:56)
--- NOTE | 2016-10-13 10:00 | HHI.PR ---
Subjective Subjective Remarks left knee pain better was out of bed walking no cp no sob pt. was noted irregular heart beat, states that he has felt palpitations before no fever no family at bsd Review of Systems Constitutional Constitutional Remarks 12-point review of systems completed, negative except as noted above Vitals/Results Intake & Output 10/12/16 10/12/16 10/13/16 15:00 23:00 07:00 Intake Total 2919 ml 480 ml Output Total 300 ml Balance 2619 ml 480 ml Intake Oral 2280 ml 480 ml IV Total 639 ml Output Urine Total 300 ml # Voids 3 6 3 Vital Signs Vital Signs Date Time Temp Pulse Resp B/P Pulse Ox O2 Delivery O2 Flow Rate FiO2 10/13/16 08:21 97.3 77 16 141/74 98 10/13/16 04:00 97.0 85 17 131/70 97 10/13/16 00:00 97.0 80 18 99/56 98 10/12/16 20:00 97.1 109 18 127/60 97 10/12/16 16:00 96.7 116 22 123/68 98 10/12/16 12:00 97.6 80 20 110/72 97 CBC/BMP: 10/13/16 0540 10/13/16 0540 Lab Results Laboratory Tests Test 10/13/16 05:40 White Blood Count 3.9 TH/MM3 Red Blood Count 2.75 MIL/MM3 Hemoglobin 7.1 GM/DL Hematocrit 21.9 % Mean Corpuscular Volume 79.8 FL Mean Corpuscular Hemoglobin 26.0 PG Mean Corpuscular Hemoglobin 32.6 % Concent Red Cell Distribution Width 16.1 % Platelet Count 73 TH/MM3 Mean Platelet Volume 7.3 FL Sodium Level 139 MEQ/L Potassium Level 4.1 MEQ/L Chloride Level 104 MEQ/L Carbon Dioxide Level 25.8 MEQ/L Anion Gap 9 MEQ/L Blood Urea Nitrogen 13 MG/DL Creatinine 0.81 MG/DL Estimat Glomerular Filtration 98 ML/MIN Rate Random Glucose 100 MG/DL Uric Acid 8.7 MG/DL Calcium Level 7.8 MG/DL Physical Exam General General Appearance: Well Nourished, No Acute Distress, Comfortable, Obese Eyes Eye Exam: Pupils Equal, Pupils Reactive Ears & Nose Ears & Nose Exam: Tympanic Membranes Normal, Nasal Mucosa [place] Throat Throat Exam: Oral Mucosa [place] & Moist Neck Neck Exam: Neck Supple, Trachea Midline Pulmonary Resp Exam: Clear Bilaterally, Breath Sounds Equal, No Distress Cardiology CV Exam: Normal Sinus Rhythm, Irregular, Arrhythmia Gastrointestinal/Abdomen GI Exam: Soft, Bowel Sounds Present, Non-Distended Musculoskeletal MS Exam: Normal Tone Integumentary Skin Exam: Clear, Warm, Dry Extremeties Extremities Exam: No Edema, Pedal Pulses Palpable Neurologic Neuro Exam: Alert, Awake, Oriented, Speech Clear, Moving All Extremities Psychiatric Psych Exam: Appropriate Responses VTE Prophylaxis VTE Prophylaxis Device: SCDs Assessment/Plan Assessment/Plan DIAGNOSTIC IMPRESSION . Abdominal pain on admission, dysuria . Calcified Right renal area mass possible malignancy . Possible prostate cancer . Status post biopsy 10/09/16 . History of non-Hodgkin's lymphoma. . Diabetes . Hypertension . Anxiety . Elevated alkaline phosphatase . Mildly elevated creatinine . Osteoarthritis, left knee pain . Anemia . Irregular heart beat, afib - new onset . Pancytopenia PLAN appreciate oncology input Thoracic spine MRI + poss. metastatic disease elevated PSA, poss. prostate cancer as primary with mets to spine f/u bx results -PENDING NPO for thoracic spine bx Evaluated per urology continue Flomax, urine sx improved Per urology recommendations, may benefit from Sodium Fluoride PET CT or Axumin PET CT as they have a better sensitivity for Metastatic Prostate Cancer. These can be done as outpatient. Otherwise, a full body MRI would be an acceptable alternative. A prostate biopsy can be done as outpatient. Has cleared for discharge Continue to hold STAR/Metformin renal function stable DC IVF Anemia, low iron stores noted check stools for OB Hgb 7.1, Hct 21.9 will give 1 Unit PRBC today Pancytopenia Plat.trending down monitor for bleeding Accu-Cheks before meals and at bedtime with insulin therapy Continue with home meds Noted with irregular heartbeat EKG noted with afib will check 2D echo TSH today Telemetry monitoring cardiology consult Avoid anticoagulants for now, SCDs okay Pepcid for GI prophylaxis Physical therapy for evaluation and treatment Complaining of right knee pain, possibly gout, uric acid 8.7 Percocet PRN working Labs in am D/W RN D/W pt D/W Dr. Nunez This patient was seen by myself and Dr. Nunez, this note is written on her behalf Chelsi Boss Oct 13, 2016 10:00
[2016-10-13] MEDS ORDERED: SODIUM CHLOR 0.9% 250 ML INJ 250 ML IV ONE (10:15)
--- NOTE | 2016-10-13 10:20 | EKG ---
Date Performed: 10/12/2016 Time Performed: 18:31:02 PTAGE: 56 years EKG: ATRIAL FLUTTER/TACHYCARDIA WITH RAPID VENTRICULAR RESPONSE NONSPECIFIC ST & T-WAVE ABNORMAL ITY ABNORMAL ECG Compared to prior tracing no significant change PREVIOUS TRACING : 10/06/2016 19.10 DOCTOR: Sony Livingston Interpretating Date/Time 10/13/2016 10:17:32
[2016-10-13 12:36] LABS: APTT (PATIENT) 25.7 SEC (24.3-30.1); INTERNATIONAL NORMALIZED RATIO 1.1 RATIO; PROTHROMBIN TIME - PATIENT 12.6 SEC (9.8-11.6)
--- NOTE | 2016-10-13 12:44 | PD.ONC.PN ---
Subjective Subjective Remarks Afebrile overnight. Patient anxious about his recent biopsy results and overall state of health. Denies pain. Objective Data Date Time Temp Pulse Resp B/P Pulse Ox O2 Delivery O2 Flow Rate FiO2 10/13/16 12:07 88 10/13/16 08:21 97.3 77 16 141/74 98 10/13/16 04:00 97.0 85 17 131/70 97 10/13/16 00:00 97.0 80 18 99/56 98 10/12/16 20:00 97.1 109 18 127/60 97 10/12/16 16:00 96.7 116 22 123/68 98 Result Diagram: 10/13/16 0540 10/13/16 0540 Laboratory Results Laboratory Tests Test 10/13/16 10/13/16 05:40 11:48 White Blood Count 3.9 TH/MM3 Red Blood Count 2.75 MIL/MM3 Hemoglobin 7.1 GM/DL Hematocrit 21.9 % Mean Corpuscular Volume 79.8 FL Mean Corpuscular Hemoglobin 26.0 PG Mean Corpuscular Hemoglobin 32.6 % Concent Red Cell Distribution Width 16.1 % Platelet Count 73 TH/MM3 Mean Platelet Volume 7.3 FL Sodium Level 139 MEQ/L Potassium Level 4.1 MEQ/L Chloride Level 104 MEQ/L Carbon Dioxide Level 25.8 MEQ/L Anion Gap 9 MEQ/L Blood Urea Nitrogen 13 MG/DL Creatinine 0.81 MG/DL Estimat Glomerular Filtration 98 ML/MIN Rate Random Glucose 100 MG/DL Uric Acid 8.7 MG/DL Calcium Level 7.8 MG/DL Blood Type A POSITIVE Administered Medications Medications (Trade) Dose Ordered Sig/Annetet Route PRN Reason Start Time Stop Time Status Last Admin Dose Admin IV Flush (NS Flush) 2 ml BID FLUSH 10/07/16 09:00 10/13/16 09:04 Ondansetron HCl (Zofran Inj) 4 mg Q6H PRN IVP NAUSEA OR VOMITING 10/07/16 00:15 10/07/16 00:35 Sennosides (Senokot) 17.2 mg Q12H PRN PO CONSTIPATION 10/07/16 00:15 10/12/16 06:06 Zolpidem Tartrate (Ambien) 5 mg HS PRN PO INSOMNIA 10/07/16 00:15 10/12/16 20:03 Heparin Sodium (Porcine) (Heparin Inj) 5,000 units Q12HR SQ 10/07/16 09:00 Hold 10/08/16 11:11 Morphine Sulfate (Morphine Inj) 4 mg Q3H PRN IV Pain 6-10;if unable to take PO 10/07/16 00:15 10/09/16 05:46 Famotidine (Pepcid) 20 mg HS PO 10/07/16 21:00 10/12/16 20:03 Glipizide (Glucotrol) 10 mg BIDAC PO 10/07/16 09:00 10/13/16 06:06 Metoprolol Tartrate (Lopressor) 100 mg BID PO 10/07/16 09:00 10/13/16 09:03 Tamsulosin HCl (Flomax) 0.4 mg DAILY PO 10/08/16 09:00 10/13/16 09:03 Oxycodone/ Acetaminophen (Percocet 10-325 Mg) 1 tab Q4H PRN PO PAIN 6-10 10/13/16 00:30 10/13/16 11:50 Objective Remarks GENERAL: Middle aged male, lying supine in bed, anxious SKIN: Warm and dry. no ecchymoses or hematoma. bandaid, Right lower back without bleeding. HEAD: Normocephalic. EYES: No injection or drainage. NECK: Supple, trachea midline. CARDIOVASCULAR: Regular rate and rhythm RESPIRATORY: Breath sounds equal bilaterally. No accessory muscle use. GASTROINTESTINAL: Abdomen soft, obese, non-tender EXTREMITIES: No cyanosis. Assessment/Plan Problem List: (1) Renal mass Status: Acute Plan: 10/13: MRI T-spine shows multiple bony mets. will ask invasive radiology to biopsy one of bony mets. two primaries are suspected: renal + prostate (psa= 2k) History: came into the emergency room complaining of abdominal pain and dysuria + weight loss. --CT ab/pelvis + CXR showed large complex partially calcified right renal mass, neoplasm suspected. --CT chest: no mets --Bone scan: no mets (2) Elevated PSA Status: Acute Plan: --metastatic prostate cancer suspected (3) Pancytopenia Status: Acute Plan: --likely due to bone marrow infiltration from prostate cancer Assessment 56y/o male with right kidney mass admitted with abdominal pain and dysuria. h/o non-Hodgkin's lymphoma-->treated with R-CHOP 15 years ago (Dr. Cunha) Hypertension. Diabetes mellitus PSA greater than 1900. Complex/calcified right renal mass. Attending Statement no pain Tolerated BM bx well. await renal bx and bone bx results. d/w pt and . d/w RN. Consult CM to assist pt assistance or medicaid.. The exam, history, and the medical decision-making described in the above note were completed with the assistance of the mid-level provider. I reviewed and agree with the findings presented. I attest that I had a [id number] encounter with the patient on the same day, and personally performed and documented my assessment and findings in the medical record. Sharri Stinson Oct 13, 2016 12:44 Bismark Arthur MD Oct 13, 2016 18:03
[2016-10-13] MEDS ORDERED: LIDOCAINE 1%/EPINEPHrine 1:100,000 SOLN 20 ML VIAL ONE (13:42)
--- NOTE | 2016-10-13 14:15 | MB ---
cc: MICAELA GILLESPIE M.D. DATE OF CONSULTATION: 10/13/2016 REASON FOR CONSULTATION Evaluation and treatment of atrial fibrillation. HISTORY OF PRESENT ILLNESS Prashant Lewis is a 56-year-old man who was admitted to the hospital October 06, 2016 and admits to have a major workup. He came in with complaints of abdominal pain and complaints with urination. Subsequently he has been shown to have a complex calcified cyst of the right kidney and a severely elevated PSA with abnormalities of the spine which suggested the possibility of prostate cancer with metastasis to the spine. The patient has been cytopenic. He has been profoundly anemic at one point with a very depressed hematocrit. He was noted to be in atrial fibrillation on EKG obtained yesterday. It is not entirely clear to me how long the atrial fibrillation has been present. The atrial fibrillation was not there on October 06, but I cannot say that we know for sure that it started on the . In looking at his pulse rates he has had some pulse rates for example of 106 on October 08, so I cannot exclude the possibility that the atrial fibrillation has been going on longer than 48 hours. The patient is unaware of the atrial fibrillation. He states that he may feel a little bit of a feeling with it but it is really hard for him to tell is a feeling he has had before. He does not have any typical angina. Denies shortness of breath. He was well until this admission. He has risk factors including hypertension and type 2 diabetes. He was treated in the past for non-Hodgkin's lymphoma. He has smoked two packs a day for about 25 years but quit 14 years ago. MEDICATIONS Current medications include metoprolol 100 mg p.o. b.i.d. he was also on lisinopril prior to admission. Metoprolol has been continued. FAMILY HISTORY Noncontributory. There is no history of coronary artery disease. SOCIAL HISTORY Significant for previous smoking. He takes care of his mom. 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 PHYSICAL EXAMINATION GENERAL: A morbidly obese white male in no acute distress. VITAL SIGNS: Vital signs are charted. HEENT: Exam unremarkable. NECK: No JVD. No bruits. CHEST: Clear to auscultation but diminished. CARDIAC: Distant S1, S2, regular rate and rhythm. Cannot appreciate murmurs or gallops. Heart rate is irregularly irregular. ABDOMEN: Soft, obese. EXTREMITIES: Intact pulses. No peripheral edema. EKG His EKG from the shows atrial fibrillation with a heart rate of 141. EKG from the shows sinus rhythm. IMAGING He has had a chest CT scan. There is no mention of any coronary artery calcification or pericardial effusion. A 2-D echo Doppler is ordered. He has no gallstones. He has abnormalities in the spine. LABORATORY DATA Creatinine 0.81. Potassium 4.1. PSA was 1989. Hematocrit is 26.0, white count depressed at 3900, platelet count depressed at 73,000. IMPRESSION Atrial fibrillation. Precise onset is unclear. It has been at least since yesterday. He is a poor candidate for anticoagulation with multiple cytopenias. PLAN I am going to bring his rate down by adding diltiazem 60 mg q.8h. Will continue the metoprolol. A 2-D echo Doppler is ordered. I will follow-up tomorrow. Further therapy to be determined. MD EVELYN London/ANDREW /1:31 PM /1:55 PM
[2016-10-13] MEDS ORDERED: fentaNYL CITRATE 250 MCG/5 ML AMP ONE (14:39)
[2016-10-13] MEDS ORDERED: MIDAZOLAM HCL 5 MG/5 ML VIAL ONE (14:40)
--- NOTE | 2016-10-13 15:44 | RADRPT ---
EXAM DATE/TIME: 10/13/2016 14:56 [facility] COMPARISON: No previous studies available for comparison. INDICATIONS : Metastatic disease. SEDATION TIME: 30 minutes BIOPSY SITE: Right iliac wing MEDICATION(S): 1.) 2 mg midazolam (Versed) IV 2.) 100 mcg fentanyl (Sublimaze) [facility] OPERATOR(s): Elinor Motta RN DEVICE(S): 1.) 11 gauge Bone biopsy needle MEDICAL HISTORY : Hypertension. non-hodgekins lymphoma, diabetes SURGICAL HISTORY : Appendectomy. ENCOUNTER: Initial ACUITY: 1 day PAIN SCORE: 0/10 LOCATION: Bilateral pelvis A total of one core specimen(s) were obtained and sent to the laboratory for pathologic evaluation. PROCEDURE: 1. CT guided bone deep biopsy. 2. Conscious sedation with continuous EKG and oximetry monitoring. 3. EKG and oximetry remained stable throughout the procedure. Prior to the procedure informed consent was obtained. Any appropriate prior imaging studies were rev iewed. Using automated exposure control and adjustment of the mA and/or kV according to patient size, radiat ion dose was kept as low as reasonably achievable to obtain optimal diagnostic quality images. The site was prepped in a sterile fashion. Full sterile technique was used, including cap, mask, ansley rile gloves and gown and a large sterile sheet. Hand hygiene and 2% chlorhexidine and/or betadine/al cohol prep was utilized per protocol for cutaneous antisepsis. The skin and subcutaneous tissues wer e infiltrated with local anesthetic solution. With CT guidance the previously identified target was localized. Biopsy was performed using the presc ribed needle as above. Adequate hemostasis was obtained with compression at the puncture site. Follow-up CT scan reveals no hemorrhage. The patient tolerated the procedure well and there were no complications. The patient was returned to the Radiology Outpatient Unit in stable condition. CONCLUSION: Uncomplicated CT guided bone biopsy of the right iliac wing for presumed prostate car cinoma metastasis. Maicol Rodriguez MD FACR on October 13, 2016 at 15:42 Board Certified Radiologist. This report was verified electronically.
--- NOTE | 2016-10-13 15:49 | EC ---
Study Study Date:10/13/2016 STUDY CONCLUSIONS SUMMARY - Left ventricle: The cavity size was normal. Wall thickness was increased in a pattern of mild LVH. Systolic function was normal. The estimated ejection fraction was 55%, in the range of 55% to 60%. - Mitral valve: Mildly thickened annulus. Structurally normal valve. - Pulmonary arteries: PA peak pressure: 32mm Hg (S). If LV function is below 40, please consider prescribing an ACEI or ARB or document rationale for non-use. PROCEDURE DATA STUDY STATUS: Elective. Procedure: Transthoracic echocardiography. Image quality was suboptimal. Scanning was performed from the parasternal, apical, and subcostal acoustic windows. Study completion: The patient tolerated the procedure well. Transthoracic echocardiography. M-mode, complete 2D, complete spectral Doppler, and color Doppler. Patient status: Inpatient. CARDIAC ANATOMY LEFT VENTRICLE: The cavity size was normal. Wall thickness was increased in a pattern of mild LVH. Systolic function was normal. The estimated ejection fraction was 55%, in the range of 55% to 60%. Images were inadequate for LV wall motion assessment. AORTIC VALVE: Trileaflet; mildly thickened leaflets. Doppler: Transvalvular velocity was within the normal range. There was no stenosis. No regurgitation. AORTA: Aortic root: The aortic root was normal in size. MITRAL VALVE: Mildly thickened annulus. Structurally normal valve. Doppler: Transvalvular velocity was within the normal range. There was no evidence for stenosis. No regurgitation. Peak gradient: 4mm Hg (D). LEFT ATRIUM: The atrium was normal in size. RIGHT VENTRICLE: The cavity size was normal. Wall thickness was normal. PULMONIC VALVE: Doppler: Transvalvular velocity was within the normal range. There was no evidence for stenosis. No regurgitation. TRICUSPID VALVE: Structurally normal valve. Doppler: Transvalvular velocity was within the normal range. No regurgitation. PULMONARY ARTERY: The main pulmonary artery was normal-sized. Systolic pressure was within the normal range. RIGHT ATRIUM: The atrium was normal in size. PERICARDIUM: There was no pericardial effusion. BASIC MEASUREMENTS ADULT Normal Left ventricle LV internal dimension, ED, chordal level, 47.8 mm 43-52 PLAX LV internal dimension, ES, chordal level, 36.9 mm 23-38 PLAX Fractional shortening, chordal level, PLAX *23 % >29 LV posterior wall thickness, ED 13.1 mm IVS/LVPW ratio, ED 1.18 <1.3 Ventricular septum Septal thickness, ED 15.4 mm Aortic valve Leaflet separation 19 mm 15-26 Right ventricle RV internal dimension, ED, PLAX *38.3 mm 19-38 BASIC MEASUREMENTS ADULT Normal Aortic valve Leaflet separation 19 mm 15-26 Aorta Root diameter, ED *38 mm 20-37 Left atrium Anterior-posterior dimension, ES 37 mm 19-40 LA/aortic root ratio 0.97 DOPPLER MEASUREMENTS ADULT Normal Main pulmonary artery Pressure, S *32 mm Hg =30 Mitral valve Peak E-wave velocity 95.3 cm/s Peak A-wave velocity 69.1 cm/s Peak gradient, D 4 mm Hg Peak E/A ratio 1.4 Tricuspid valve Regurgitant peak velocity 233 cm/s Peak RV-RA gradient, S 22 mm Hg Systemic veins Estimated CVP 10 mm Hg Right ventricle RV pressure, S *32 mm Hg <30 LEGEND: Mean values are shown as u=mean value. Asterisk (*) [place] values outside specified normal range. Prepared and signed by Joao June [id number]
[2016-10-13] MEDS: DILTIAZEM HCL 60 MG TAB PO SCH ×2 (16:00→20:57)
[2016-10-13 18:04] LABS: REVIEW FLAG FINAL
[2016-10-13] MEDS: FAMOTIDINE 20 MG TAB PO SCH (20:54)
[2016-10-13] MEDS: ZOLPIDEM TARTRATE 5 MG TAB PO PRN (21:04)
[2016-10-14] VITALS (8 sets, daily range): BP systolic 103–131; BP diastolic 60–78; PULSE 67–83; RESP 16–18; TEMP 96.8–97.9; O2SAT 96–97
[2016-10-14] MEDS: oxyCODONE/ACETAMINOPHEN 10 MG/325 MG TAB PO PRN ×5 (04:18→21:44)
[2016-10-14] MEDS: DILTIAZEM HCL 60 MG TAB PO SCH ×3 (06:30→21:43)
[2016-10-14] MEDS: glipiZIDE 10 MG TAB PO SCH ×2 (06:30→17:34)
[2016-10-14] MEDS: INSULIN ASPART SUPPLEMENTAL SCALE SQ SCH ×4 (06:31→21:48)
[2016-10-14 07:08] LABS: AUTOMATED NEUTROPHIL # 3.5 TH/MM3 (1.8-7.7); EOSINOPHIL % 0.6 % (0.0-4.0); HEMATOCRIT 25.4 % (39.0-51.0); LYMPH % 21.2 % (9.0-44.0); LYMPHOCYTE # 1.1 TH/MM3 (1.0-4.8); MEAN CELL VOLUME 79.9 FL (80.0-100.0); MEAN CORPUSCULAR HEMOGLOBIN 26.1 PG (27.0-34.0); MEAN CORPUSCULAR HGB CONC 32.7 % (32.0-36.0); MONO % 8.1 % (0.0-8.0); NEUT % 69.1 % (16.0-70.0); PLATELET COUNT 91 TH/MM3 (150-450); RED BLOOD COUNT 3.17 MIL/MM3 (4.50-5.90); RED CELL DISTRIBUTION WIDTH 16.1 % (11.6-17.2)
[2016-10-14 07:16] LABS: HEMO FLAGS AUTO DIFF
[2016-10-14 07:26] LABS: APTT (PATIENT) 24.7 SEC (24.3-30.1); INTERNATIONAL NORMALIZED RATIO 1.1 RATIO; PROTHROMBIN TIME - PATIENT 12.6 SEC (9.8-11.6)
[2016-10-14 08:22] LABS: BANDS 8 % (0-6); BASOPHILS 1 % (0-2); CORRECTED NUCLEATED RBC 2 /100 WBC (0-0); MYELOCYTES 2 % (0-0); NEUTROPHIL # MANUAL DIFF 3.8 TH/MM3 (1.8-7.7); POLYS (SEG NEUTROPHILS) 66 % (16-70); WBC DIFF SAMPLE 100
[2016-10-14 08:23] LABS: POLYCHROMASIA 2.1 % (0.0-1.9)
[2016-10-14 08:24] LABS: OVALOCYTES 1+ (NORMAL); PLATELET ESTIMATE SMEAR LOW (NORMAL); PLATELET MORPHOLOGY NORMAL (NORMAL); ROULEAUX PRESENT (NORMAL); SCAN/DIFF FINAL DIFF MANUAL
--- NOTE | 2016-10-14 08:57 | PD.CARD.PN ---
Subjective Subjective Remarks No complaints Objective Medications Current Medications Medications (Trade) Dose Ordered Sig/Annette Route Start Time Stop Time Status Last Admin (NS Flush) 2 ml UNSCH PRN FLUSH 10/07/16 00:15 (NS Flush) 2 ml BID FLUSH 10/07/16 09:00 10/13/16 20:56 (Tylenol) 650 mg Q4H PRN PO 10/07/16 00:15 (Zofran Inj) 4 mg Q6H PRN IVP 10/07/16 00:15 10/07/16 00:35 (Dulcolax Supp) 10 mg DAILY PRN UT 10/07/16 00:15 (Milk Of Magnesia Liq) 30 ml Q12H PRN PO 10/07/16 00:15 10/14/16 06:35 (Senokot) 17.2 mg Q12H PRN PO 10/07/16 00:15 10/12/16 06:06 (Ambien) 5 mg HS PRN PO 10/07/16 00:15 10/13/16 21:04 (Heparin Inj) 5,000 units Q12HR SQ 10/07/16 09:00 Hold 10/08/16 11:11 (Morphine Inj) 2 mg Q3H PRN IV 10/07/16 00:15 (Morphine Inj) 4 mg Q3H PRN IV 10/07/16 00:15 10/09/16 05:46 (Narcan Inj) 0.4 mg UNSCH PRN IV 10/07/16 00:15 (Pepcid) 20 mg HS PO 10/07/16 21:00 10/13/16 20:54 (Glucotrol) 10 mg BIDAC PO 10/07/16 09:00 10/14/16 06:30 (Lopressor) 100 mg BID PO 10/07/16 09:00 10/13/16 20:54 (D50w (Vial) Inj) 25 ml UNSCH PRN IV PUSH 10/07/16 09:00 (Glucagon Inj) 1 mg UNSCH PRN OTHER 10/07/16 09:00 (Flomax) 0.4 mg DAILY PO 10/08/16 09:00 10/13/16 09:03 (Percocet 5-325 Mg) 1 tab Q4H PRN PO 10/13/16 00:30 (Percocet 10-325 Mg) 1 tab Q4H PRN PO 10/13/16 00:30 10/14/16 04:18 (Cardizem) 60 mg Q8HR PO 10/13/16 14:00 10/14/16 06:30 Vital Signs / I&O Vital Signs Date Time Temp Pulse Resp B/P Pulse Ox O2 Delivery O2 Flow Rate FiO2 10/14/16 07:47 83 10/14/16 05:18 16 10/14/16 04:00 97.0 71 18 123/65 96 10/14/16 00:00 97.4 69 18 117/64 97 10/13/16 20:13 75 10/13/16 18:01 96.4 92 16 123/66 100 10/13/16 17:12 95.4 88 16 115/68 99 10/13/16 16:23 75 18 126/68 99 10/13/16 15:53 77 17 135/72 99 10/13/16 15:23 97.5 72 16 149/70 100 10/13/16 13:47 96.8 69 16 110/61 97 10/13/16 12:07 88 10/13/16 12:00 96.9 60 16 118/65 98 I/O 10/13/16 10/13/16 10/13/16 10/14/16 10/14/16 10/14/16 07:00 15:00 23:00 07:00 15:00 23:00 Intake Total 800 ml 240 ml Output Total 3 ml Balance -3 ml 800 ml 240 ml Intake Oral 800 ml 240 ml Output Urine Total 3 ml # Voids 3 3 1 Physical Exam GENERAL: Morbidly obese, No acute distress. HEENT: Jugular venous pressure not able to be assessed CHEST: Lungs clear to auscultation bilaterally. Unlabored respiratory effort. CARDIAC: Regular rate and rhythm without S3, S4, or murmur. ABDOMEN: Soft, nontender, no hepatosplenomegaly. Bowel sounds present. EXTREMITIES: No clubbing, cyanosis, or edema. Laboratory Laboratory Tests Test 10/13/16 10/13/16 10/13/16 10/13/16 11:48 11:56 12:08 17:40 Prothrombin Time 12.6 SEC Prothromb Time International 1.1 RATIO Ratio Activated Partial 25.7 SEC Thromboplast Time Fibrinogen 529 mg/dL Blood Type A POSITIVE A POSITIVE Antibody Screen NEGATIVE Crossmatch Leukocyte-Reduced Red Blood Cells Blood Bank Comment Thyroid Stimulating Hormone 2.590 uIU/ML 3rd Gen Hemoglobin 7.4 GM/DL Hematocrit 23.0 % Test 10/14/16 06:40 White Blood Count 5.0 TH/MM3 Red Blood Count 3.17 MIL/MM3 Hemoglobin 8.3 GM/DL Hematocrit 25.4 % Mean Corpuscular Volume 79.9 FL Mean Corpuscular Hemoglobin 26.1 PG Mean Corpuscular Hemoglobin 32.7 % Concent Red Cell Distribution Width 16.1 % Platelet Count 91 TH/MM3 Mean Platelet Volume 7.1 FL Neutrophils (%) (Auto) 69.1 % Lymphocytes (%) (Auto) 21.2 % Monocytes (%) (Auto) 8.1 % Eosinophils (%) (Auto) 0.6 % Basophils (%) (Auto) 1.0 % Neutrophils # (Auto) 3.5 TH/MM3 Lymphocytes # (Auto) 1.1 TH/MM3 Monocytes # (Auto) 0.4 TH/MM3 Eosinophils # (Auto) 0.0 TH/MM3 Basophils # (Auto) 0.0 TH/MM3 CBC Comment AUTO DIFF Differential Total Cells 100 Counted Neutrophils % (Manual) 66 % Band Neutrophils % 8 % Lymphocytes % 14 % Monocytes % 9 % Basophils % 1 % Neutrophils # (Manual) 3.8 TH/MM3 Myelocytes 2 % Nucleated Red Blood Cells 2 /100 WBC Differential Comment FINAL DIFF MANUAL Platelet Estimate LOW Platelet Morphology Comment NORMAL Polychromasia 2.1 % Ovalocytes 1+ Rouleau PRESENT Prothrombin Time 12.6 SEC Prothromb Time International 1.1 RATIO Ratio Activated Partial 24.7 SEC Thromboplast Time Assessment and Plan Problem List: (1) Paroxysmal atrial fibrillation Assessment and Plan: Back in sinus rhythm since last night. Change metoprolol to sotalol. Cont. tele. (2) Hypertensive cardiovascular disease (3) Diabetes mellitus type 2 in obese Joao June MD Oct 14, 2016 08:57
[2016-10-14] MEDS: TAMSULOSIN HCL 0.4 MG CAP PO SCH (09:24)
[2016-10-14] MEDS: SODIUM CHLORIDE 0.9% FLUSH 5 ML FLUSH FLUSH SCH ×2 (09:25→21:45)
[2016-10-14] MEDS ORDERED: PILL SPLITTER OTHER PRN (09:30)
--- NOTE | 2016-10-14 10:57 | PD.ONC.PN ---
Subjective Subjective Remarks Afebrile overnight. patient tolerated bone biopsy yesterday. He complains of some generalized pain in hips and shoulders. He is eager to know biopsy results. Objective Data Date Time Temp Pulse Resp B/P Pulse Ox O2 Delivery O2 Flow Rate FiO2 10/14/16 08:00 96.8 77 16 131/78 96 10/14/16 07:47 83 10/14/16 05:18 16 10/14/16 04:00 97.0 71 18 123/65 96 10/14/16 00:00 97.4 69 18 117/64 97 10/13/16 20:13 75 10/13/16 18:01 96.4 92 16 123/66 100 10/13/16 17:12 95.4 88 16 115/68 99 10/13/16 16:23 75 18 126/68 99 10/13/16 15:53 77 17 135/72 99 10/13/16 15:23 97.5 72 16 149/70 100 10/13/16 13:47 96.8 69 16 110/61 97 10/13/16 12:07 88 10/13/16 12:00 96.9 60 16 118/65 98 Result Diagram: 10/14/16 0640 10/13/16 0540 Laboratory Results Laboratory Tests Test 10/13/16 10/13/16 10/13/16 10/13/16 11:48 11:56 12:08 17:40 Prothrombin Time 12.6 SEC Prothromb Time International 1.1 RATIO Ratio Activated Partial 25.7 SEC Thromboplast Time Fibrinogen 529 mg/dL Blood Type A POSITIVE A POSITIVE Antibody Screen NEGATIVE Crossmatch Leukocyte-Reduced Red Blood Cells Blood Bank Comment Thyroid Stimulating Hormone 2.590 uIU/ML 3rd Gen Hemoglobin 7.4 GM/DL Hematocrit 23.0 % Test 10/14/16 06:40 White Blood Count 5.0 TH/MM3 Red Blood Count 3.17 MIL/MM3 Hemoglobin 8.3 GM/DL Hematocrit 25.4 % Mean Corpuscular Volume 79.9 FL Mean Corpuscular Hemoglobin 26.1 PG Mean Corpuscular Hemoglobin 32.7 % Concent Red Cell Distribution Width 16.1 % Platelet Count 91 TH/MM3 Mean Platelet Volume 7.1 FL Neutrophils (%) (Auto) 69.1 % Lymphocytes (%) (Auto) 21.2 % Monocytes (%) (Auto) 8.1 % Eosinophils (%) (Auto) 0.6 % Basophils (%) (Auto) 1.0 % Neutrophils # (Auto) 3.5 TH/MM3 Lymphocytes # (Auto) 1.1 TH/MM3 Monocytes # (Auto) 0.4 TH/MM3 Eosinophils # (Auto) 0.0 TH/MM3 Basophils # (Auto) 0.0 TH/MM3 CBC Comment AUTO DIFF Differential Total Cells 100 Counted Neutrophils % (Manual) 66 % Band Neutrophils % 8 % Lymphocytes % 14 % Monocytes % 9 % Basophils % 1 % Neutrophils # (Manual) 3.8 TH/MM3 Myelocytes 2 % Nucleated Red Blood Cells 2 /100 WBC Differential Comment FINAL DIFF MANUAL Platelet Estimate LOW Platelet Morphology Comment NORMAL Polychromasia 2.1 % Ovalocytes 1+ Rouleau PRESENT Prothrombin Time 12.6 SEC Prothromb Time International 1.1 RATIO Ratio Activated Partial 24.7 SEC Thromboplast Time Administered Medications Medications (Trade) Dose Ordered Sig/Annette Route PRN Reason Start Time Stop Time Status Last Admin Dose Admin IV Flush (NS Flush) 2 ml BID FLUSH 10/07/16 09:00 10/14/16 09:25 Ondansetron HCl (Zofran Inj) 4 mg Q6H PRN IVP NAUSEA OR VOMITING 10/07/16 00:15 10/07/16 00:35 Magnesium Hydroxide (Milk Of Bonnie Caro) 30 ml Q12H PRN PO CONSTIPATION 10/07/16 00:15 10/14/16 06:35 Sennosides (Senokot) 17.2 mg Q12H PRN PO CONSTIPATION 10/07/16 00:15 10/12/16 06:06 Zolpidem Tartrate (Ambien) 5 mg HS PRN PO INSOMNIA 10/07/16 00:15 10/13/16 21:04 Heparin Sodium (Porcine) (Heparin Inj) 5,000 units Q12HR SQ 10/07/16 09:00 Hold 10/08/16 11:11 Morphine Sulfate (Morphine Inj) 4 mg Q3H PRN IV Pain 6-10;if unable to take PO 10/07/16 00:15 10/09/16 05:46 Famotidine (Pepcid) 20 mg HS PO 10/07/16 21:00 10/13/16 20:54 Glipizide (Glucotrol) 10 mg BIDAC PO 10/07/16 09:00 10/14/16 06:30 Tamsulosin HCl (Flomax) 0.4 mg DAILY PO 10/08/16 09:00 10/14/16 09:24 Oxycodone/ Acetaminophen (Percocet 10-325 Mg) 1 tab Q4H PRN PO PAIN 6-10 10/13/16 00:30 10/14/16 09:25 Diltiazem HCl (Cardizem) 60 mg Q8HR PO 10/13/16 14:00 10/14/16 06:30 Objective Remarks GENERAL: Middle aged male, sitting up in bed in [facility]. SKIN: Warm and dry. no ecchymoses or hematoma. HEAD: Normocephalic. EYES: No injection or drainage. NECK: Supple, trachea midline. CARDIOVASCULAR: Regular rate and rhythm RESPIRATORY: Breath sounds equal bilaterally. No accessory muscle use. GASTROINTESTINAL: Abdomen soft, obese, non-tender EXTREMITIES: No cyanosis. Assessment/Plan Problem List: (1) Renal mass Status: Acute Plan: 10/14: await pathology from bone biopsy. History: came into the emergency room complaining of abdominal pain and dysuria + weight loss. --CT ab/pelvis + CXR showed large complex partially calcified right renal mass, neoplasm suspected. --CT chest: no mets --Bone scan: no mets (2) Elevated PSA Status: Acute Plan: --metastatic prostate cancer suspected (3) Pancytopenia Status: Acute Plan: --likely due to bone marrow infiltration from prostate cancer Assessment 56y/o male with right kidney mass admitted with abdominal pain and dysuria. h/o non-Hodgkin's lymphoma-->treated with R-CHOP 15 years ago (Dr. Cunha) Hypertension. Diabetes mellitus PSA greater than 1900. Complex/calcified right renal mass. Attending Statement c/o shoulder pain await path. will follow The exam, history, and the medical decision-making described in the above note were completed with the assistance of the mid-level provider. I reviewed and agree with the findings presented. I attest that I had a [id number] encounter with the patient on the same day, and personally performed and documented my assessment and findings in the medical record. Sharri Stinson Oct 14, 2016 10:57 Bismark Arthur MD Oct 14, 2016 22:30
[2016-10-14] MEDS: SOTALOL HCL 80 MG TAB PO SCH ×2 (11:39→21:43)
--- NOTE | 2016-10-14 12:25 | HHI.PR ---
Subjective Subjective Remarks tolerated bone bx well yesterday minimal back pain no n/v has been walking tele SR, no afib today no cp no sob Review of Systems Constitutional Constitutional Remarks 12-point review of systems completed, negative except as noted above Vitals/Results Intake & Output 10/13/16 10/13/16 10/14/16 15:00 23:00 07:00 Intake Total 800 ml 240 ml Output Total 3 ml Balance -3 ml 800 ml 240 ml Intake Oral 800 ml 240 ml Output Urine Total 3 ml # Voids 3 1 Vital Signs Vital Signs Date Time Temp Pulse Resp B/P Pulse Ox O2 Delivery O2 Flow Rate FiO2 10/14/16 11:39 16 10/14/16 08:00 96.8 77 16 131/78 96 10/14/16 07:47 83 10/14/16 04:00 97.0 71 18 123/65 96 10/14/16 00:00 97.4 69 18 117/64 97 10/13/16 20:13 75 10/13/16 18:01 96.4 92 16 123/66 100 10/13/16 17:12 95.4 88 16 115/68 99 10/13/16 16:23 75 18 126/68 99 10/13/16 15:53 77 17 135/72 99 10/13/16 15:23 97.5 72 16 149/70 100 10/13/16 13:47 96.8 69 16 110/61 97 CBC/BMP: 10/14/16 0640 10/13/16 0540 Lab Results Laboratory Tests Test 10/13/16 10/14/16 17:40 06:40 Hemoglobin 7.4 GM/DL 8.3 GM/DL Hematocrit 23.0 % 25.4 % White Blood Count 5.0 TH/MM3 Red Blood Count 3.17 MIL/MM3 Mean Corpuscular Volume 79.9 FL Mean Corpuscular Hemoglobin 26.1 PG Mean Corpuscular Hemoglobin 32.7 % Concent Red Cell Distribution Width 16.1 % Platelet Count 91 TH/MM3 Mean Platelet Volume 7.1 FL Neutrophils (%) (Auto) 69.1 % Lymphocytes (%) (Auto) 21.2 % Monocytes (%) (Auto) 8.1 % Eosinophils (%) (Auto) 0.6 % Basophils (%) (Auto) 1.0 % Neutrophils # (Auto) 3.5 TH/MM3 Lymphocytes # (Auto) 1.1 TH/MM3 Monocytes # (Auto) 0.4 TH/MM3 Eosinophils # (Auto) 0.0 TH/MM3 Basophils # (Auto) 0.0 TH/MM3 CBC Comment AUTO DIFF Differential Total Cells 100 Counted Neutrophils % (Manual) 66 % Band Neutrophils % 8 % Lymphocytes % 14 % Monocytes % 9 % Basophils % 1 % Neutrophils # (Manual) 3.8 TH/MM3 Myelocytes 2 % Nucleated Red Blood Cells 2 /100 WBC Differential Comment FINAL DIFF MANUAL Platelet Estimate LOW Platelet Morphology Comment NORMAL Polychromasia 2.1 % Ovalocytes 1+ Rouleau PRESENT Prothrombin Time 12.6 SEC Prothromb Time International 1.1 RATIO Ratio Activated Partial 24.7 SEC Thromboplast Time Physical Exam General General Appearance: Well Nourished, No Acute Distress, Comfortable, Obese Eyes Eye Exam: Pupils Equal, Pupils Reactive Ears & Nose Ears & Nose Exam: Tympanic Membranes Normal, Nasal Mucosa [place] Throat Throat Exam: Oral Mucosa [place] & Moist Neck Neck Exam: Neck Supple, Trachea Midline Pulmonary Resp Exam: Clear Bilaterally, Breath Sounds Equal, No Distress Cardiology CV Exam: Normal Sinus Rhythm Gastrointestinal/Abdomen GI Exam: Soft, Bowel Sounds Present, Non-Distended Musculoskeletal MS Exam: Normal Tone Integumentary Skin Exam: Clear, Warm, Dry Extremeties Extremities Exam: No Edema, Pedal Pulses Palpable Neurologic Neuro Exam: Alert, Awake, Oriented, Speech Clear, Moving All Extremities Psychiatric Psych Exam: Appropriate Responses VTE Prophylaxis VTE Prophylaxis Device: SCDs Assessment/Plan Assessment/Plan DIAGNOSTIC IMPRESSION . Abdominal pain on admission, dysuria . Calcified Right renal area mass possible malignancy . Possible prostate cancer . Status post biopsy 10/09/16 . History of non-Hodgkin's lymphoma. . Diabetes . Hypertension . Anxiety . Elevated alkaline phosphatase . Mildly elevated creatinine . Osteoarthritis, left knee pain . Anemia . Irregular heart beat, afib - new onset . Pancytopenia PLAN appreciate oncology input Thoracic spine MRI + poss. metastatic disease elevated PSA, poss. prostate cancer as primary with mets to spine f/u bx results -PENDING S/P thoracic spine bx 10/13, results pending Evaluated per urology continue Flomax, urine sx improved Per urology recommendations, may benefit from Sodium Fluoride PET CT or Axumin PET CT as they have a better sensitivity for Metastatic Prostate Cancer. These can be done as outpatient. Otherwise, a full body MRI would be an acceptable alternative. A prostate biopsy can be done as outpatient. Has cleared for discharge Continue to hold STAR/Metformin renal function stable Anemia, low iron stores noted check stools for OB Hgb 7.1, Hct 21.9 S/P 1 unit PRBC /. HH today 8.3/25.4 will give 1 Unit PRBC today Pancytopenia plat up to 91 monitor for bleeding Accu-Cheks before meals and at bedtime with insulin therapy Continue with home meds afib new onset appreciate card input echo done, EF 55 to 60% no anticoagulation recommended due to pancytopenias changed to Sotalol, converted to SR overnight Avoid anticoagulants for now, SCDs okay Pepcid for GI prophylaxis Physical therapy for evaluation and treatment Percocet PRN Labs in am Continue to f/u biopsy results D/W RN D/W pt D/W Dr. Nunez This patient was seen by myself and Dr. Nunez, this note is written on her behalf Chelsi Boss Oct 14, 2016 12:25
[2016-10-14] MEDS: FAMOTIDINE 20 MG TAB PO SCH (21:43)
[2016-10-15] VITALS (7 sets, daily range): BP systolic 103–123; BP diastolic 53–59; PULSE 63–76; RESP 16–18; TEMP 96.8–97.9; O2SAT 95–98
[2016-10-15] MEDS: oxyCODONE/ACETAMINOPHEN 10 MG/325 MG TAB PO PRN ×5 (02:10→19:50)
[2016-10-15] MEDS: DILTIAZEM HCL 60 MG TAB PO SCH (06:00)
[2016-10-15] MEDS: glipiZIDE 10 MG TAB PO SCH ×2 (06:00→16:17)
[2016-10-15] MEDS: INSULIN ASPART SUPPLEMENTAL SCALE SQ SCH ×4 (06:02→19:47)
[2016-10-15 07:28] LABS: AUTOMATED NEUTROPHIL # 2.6 TH/MM3 (1.8-7.7); BASOPHIL % 0.8 % (0.0-2.0); EOSINOPHIL % 0.7 % (0.0-4.0); HEMATOCRIT 23.1 % (39.0-51.0); LYMPH % 19.5 % (9.0-44.0); LYMPHOCYTE # 0.7 TH/MM3 (1.0-4.8); MEAN CELL VOLUME 79.4 FL (80.0-100.0); MEAN CORPUSCULAR HEMOGLOBIN 26.4 PG (27.0-34.0); MEAN CORPUSCULAR HGB CONC 33.2 % (32.0-36.0); MONO % 9.6 % (0.0-8.0); NEUT % 69.4 % (16.0-70.0); PLATELET COUNT 87 TH/MM3 (150-450); RED BLOOD COUNT 2.91 MIL/MM3 (4.50-5.90); RED CELL DISTRIBUTION WIDTH 16.2 % (11.6-17.2); WHITE BLOOD COUNT 3.7 TH/MM3 (4.0-11.0)
[2016-10-15 07:36] LABS: HEMO FLAGS AUTO DIFF
[2016-10-15 08:39] LABS: BANDS 9 % (0-6); BASOPHILS 2 % (0-2); CORRECTED NUCLEATED RBC 4 /100 WBC (0-0); EOSINOPHILS 1 % (0-4); METAMYELOCYTES 4 % (0-1); MYELOCYTES 2 % (0-0); NEUTROPHIL # MANUAL DIFF 2.7 TH/MM3 (1.8-7.7); POLYS (SEG NEUTROPHILS) 58 % (16-70); WBC DIFF SAMPLE 100
[2016-10-15 08:40] LABS: TEARDROP RBCS 1+ (NORMAL)
[2016-10-15 08:41] LABS: PLATELET ESTIMATE SMEAR LOW (NORMAL); PLATELET MORPHOLOGY NORMAL (NORMAL); SCAN/DIFF FINAL DIFF MANUAL
--- NOTE | 2016-10-15 09:44 | HHI.PR ---
Subjective Subjective Remarks back pain constipated no cp no sob anxious to find out biopsy report no fever tele reviewed, SR Review of Systems Constitutional Constitutional Remarks 12-point review of systems completed, negative except as noted above Vitals/Results Intake & Output 10/14/16 10/14/16 10/15/16 15:00 23:00 07:00 Intake Total 620 ml 480 ml 480 ml Balance 620 ml 480 ml 480 ml Intake Oral 620 ml 480 ml 480 ml # Voids 3 2 1 Vital Signs Vital Signs Date Time Temp Pulse Resp B/P Pulse Ox O2 Delivery O2 Flow Rate FiO2 10/15/16 08:00 97.8 66 16 122/57 96 10/15/16 04:00 97.0 69 18 104/55 95 10/15/16 00:00 96.8 63 16 103/59 98 10/14/16 20:30 97.9 68 18 129/63 96 10/14/16 20:00 68 10/14/16 17:34 16 10/14/16 16:00 96.8 67 16 103/60 97 10/14/16 12:40 97.1 78 16 130/70 96 CBC/BMP: 10/15/16 0600 10/13/16 0540 Lab Results Laboratory Tests Test 10/15/16 06:00 White Blood Count 3.7 TH/MM3 Red Blood Count 2.91 MIL/MM3 Hemoglobin 7.7 GM/DL Hematocrit 23.1 % Mean Corpuscular Volume 79.4 FL Mean Corpuscular Hemoglobin 26.4 PG Mean Corpuscular Hemoglobin 33.2 % Concent Red Cell Distribution Width 16.2 % Platelet Count 87 TH/MM3 Mean Platelet Volume 7.4 FL Neutrophils (%) (Auto) 69.4 % Lymphocytes (%) (Auto) 19.5 % Monocytes (%) (Auto) 9.6 % Eosinophils (%) (Auto) 0.7 % Basophils (%) (Auto) 0.8 % Neutrophils # (Auto) 2.6 TH/MM3 Lymphocytes # (Auto) 0.7 TH/MM3 Monocytes # (Auto) 0.4 TH/MM3 Eosinophils # (Auto) 0.0 TH/MM3 Basophils # (Auto) 0.0 TH/MM3 CBC Comment AUTO DIFF Differential Total Cells 100 Counted Neutrophils % (Manual) 58 % Band Neutrophils % 9 % Lymphocytes % 19 % Monocytes % 5 % Eosinophils % 1 % Basophils % 2 % Neutrophils # (Manual) 2.7 TH/MM3 Metamyelocytes 4 % Myelocytes 2 % Nucleated Red Blood Cells 4 /100 WBC Differential Comment FINAL DIFF MANUAL Platelet Estimate LOW Platelet Morphology Comment NORMAL Tear Drop Cells 1+ Physical Exam General General Appearance: Well Nourished, No Acute Distress, Comfortable, Obese Eyes Eye Exam: Pupils Equal, Pupils Reactive Ears & Nose Ears & Nose Exam: Tympanic Membranes Normal, Nasal Mucosa [place] Throat Throat Exam: Oral Mucosa [place] & Moist Neck Neck Exam: Neck Supple, Trachea Midline Pulmonary Resp Exam: Clear Bilaterally, Breath Sounds Equal, No Distress Cardiology CV Exam: Normal Sinus Rhythm Gastrointestinal/Abdomen GI Exam: Soft, Bowel Sounds Present, Non-Distended Musculoskeletal MS Exam: Normal Tone Integumentary Skin Exam: Clear, Warm, Dry Extremeties Extremities Exam: No Edema, Pedal Pulses Palpable Neurologic Neuro Exam: Alert, Awake, Oriented, Speech Clear, Moving All Extremities Psychiatric Psych Exam: Appropriate Responses VTE Prophylaxis VTE Prophylaxis Device: SCDs Assessment/Plan Assessment/Plan DIAGNOSTIC IMPRESSION . Abdominal pain on admission, dysuria . Calcified Right renal area mass possible malignancy . Possible prostate cancer . Status post biopsy 10/09/16 . History of non-Hodgkin's lymphoma. . Diabetes . Hypertension . Anxiety . Elevated alkaline phosphatase . Mildly elevated creatinine . Osteoarthritis, left knee pain . Anemia . Irregular heart beat, afib - new onset . Pancytopenia PLAN appreciate oncology input Thoracic spine MRI + poss. metastatic disease elevated PSA, poss. prostate cancer as primary with mets to spine f/u bx results -PENDING S/P thoracic spine bx 10/13, results pending Evaluated per urology continue Flomax, urine sx improved Per urology recommendations, may benefit from Sodium Fluoride PET CT or Axumin PET CT as they have a better sensitivity for Metastatic Prostate Cancer. These can be done as outpatient. Otherwise, a full body MRI would be an acceptable alternative. A prostate biopsy can be done as outpatient. Has cleared for discharge Continue to hold STAR/Metformin renal function stable Anemia, low iron stores noted check stools for OB Hgb 7.1, Hct 21.9 S/P 1 unit PRBC 10/13. HH today 7.7/23.1 ? transfusion, defer to onc. Pancytopenia plat 87 monitor for bleeding Accu-Cheks before meals and at bedtime with insulin therapy Continue with home meds afib new onset-stable, SR appreciate card input echo done, EF 55 to 60% no anticoagulation recommended due to pancytopenias changed to Sotalol, converted to SR overnight Avoid anticoagulants for now, SCDs okay Pepcid for GI prophylaxis Physical therapy for evaluation and treatment Percocet PRN Add Miralax daily Continue to f/u biopsy results D/W RN D/W pt D/W Dr. Nunez This patient was seen by myself and Dr. Nunez, this note is written on her behalf Chelsi Boss Oct 15, 2016 09:44
[2016-10-15] MEDS: TAMSULOSIN HCL 0.4 MG CAP PO SCH (09:58)
[2016-10-15] MEDS: SOTALOL HCL 80 MG TAB PO SCH ×2 (09:58→19:46)
[2016-10-15] MEDS: SODIUM CHLORIDE 0.9% FLUSH 5 ML FLUSH FLUSH SCH ×2 (09:58→19:46)
[2016-10-15] MEDS: POLYETHYLENE GLYCOL 17 GM PKG PO SCH (10:02)
--- NOTE | 2016-10-15 10:38 | PD.ONC.PN ---
Subjective Subjective Remarks Afebrile overnight. He has been having some pain in his hips and shoulders. He attributes this to the bed. He is anxious to get path results and to be released from the hospital. Objective Data Date Time Temp Pulse Resp B/P Pulse Ox O2 Delivery O2 Flow Rate FiO2 10/15/16 08:00 97.8 66 16 122/57 96 10/15/16 04:00 97.0 69 18 104/55 95 10/15/16 00:00 96.8 63 16 103/59 98 10/14/16 20:30 97.9 68 18 129/63 96 10/14/16 20:00 68 10/14/16 17:34 16 10/14/16 16:00 96.8 67 16 103/60 97 10/14/16 12:40 97.1 78 16 130/70 96 10/15/16 10/15/16 10/15/16 07:00 15:00 23:00 Intake Total 480 ml Balance 480 ml Result Diagram: 10/15/16 0600 10/13/16 0540 Laboratory Results Laboratory Tests Test 10/15/16 06:00 White Blood Count 3.7 TH/MM3 Red Blood Count 2.91 MIL/MM3 Hemoglobin 7.7 GM/DL Hematocrit 23.1 % Mean Corpuscular Volume 79.4 FL Mean Corpuscular Hemoglobin 26.4 PG Mean Corpuscular Hemoglobin 33.2 % Concent Red Cell Distribution Width 16.2 % Platelet Count 87 TH/MM3 Mean Platelet Volume 7.4 FL Neutrophils (%) (Auto) 69.4 % Lymphocytes (%) (Auto) 19.5 % Monocytes (%) (Auto) 9.6 % Eosinophils (%) (Auto) 0.7 % Basophils (%) (Auto) 0.8 % Neutrophils # (Auto) 2.6 TH/MM3 Lymphocytes # (Auto) 0.7 TH/MM3 Monocytes # (Auto) 0.4 TH/MM3 Eosinophils # (Auto) 0.0 TH/MM3 Basophils # (Auto) 0.0 TH/MM3 CBC Comment AUTO DIFF Differential Total Cells 100 Counted Neutrophils % (Manual) 58 % Band Neutrophils % 9 % Lymphocytes % 19 % Monocytes % 5 % Eosinophils % 1 % Basophils % 2 % Neutrophils # (Manual) 2.7 TH/MM3 Metamyelocytes 4 % Myelocytes 2 % Nucleated Red Blood Cells 4 /100 WBC Differential Comment FINAL DIFF MANUAL Platelet Estimate LOW Platelet Morphology Comment NORMAL Tear Drop Cells 1+ Administered Medications Medications (Trade) Dose Ordered Sig/Annette Route PRN Reason Start Time Stop Time Status Last Admin Dose Admin IV Flush (NS Flush) 2 ml BID FLUSH 10/07/16 09:00 10/15/16 09:58 Ondansetron HCl (Zofran Inj) 4 mg Q6H PRN IVP NAUSEA OR VOMITING 10/07/16 00:15 10/07/16 00:35 Magnesium Hydroxide (Milk Of Magnkeyana Liq) 30 ml Q12H PRN PO CONSTIPATION 10/07/16 00:15 10/14/16 06:35 Sennosides (Senokot) 17.2 mg Q12H PRN PO CONSTIPATION 10/07/16 00:15 10/12/16 06:06 Zolpidem Tartrate (Ambien) 5 mg HS PRN PO INSOMNIA 10/07/16 00:15 10/13/16 21:04 Heparin Sodium (Porcine) (Heparin Inj) 5,000 units Q12HR SQ 10/07/16 09:00 Hold 10/08/16 11:11 Morphine Sulfate (Morphine Inj) 4 mg Q3H PRN IV Pain 6-10;if unable to take PO 10/07/16 00:15 10/09/16 05:46 Famotidine (Pepcid) 20 mg HS PO 10/07/16 21:00 10/14/16 21:43 Glipizide (Glucotrol) 10 mg BIDAC PO 10/07/16 09:00 10/15/16 06:00 Tamsulosin HCl (Flomax) 0.4 mg DAILY PO 10/08/16 09:00 10/15/16 09:58 Oxycodone/ Acetaminophen (Percocet 10-325 Mg) 1 tab Q4H PRN PO PAIN 6-10 10/13/16 00:30 10/15/16 10:01 Diltiazem HCl (Cardizem) 60 mg Q8HR PO 10/13/16 14:00 10/15/16 06:00 Sotalol HCl (Betapace) 120 mg Q12HR PO 10/14/16 09:00 10/15/16 09:58 Polyethylene Glycol (Miralax) 17 gm DAILY PO 10/15/16 09:45 10/15/16 10:02 Objective Remarks GENERAL: Obese, middle aged male, sitting up in bed in [facility]. SKIN: Warm and dry. no ecchymoses or hematoma. HEAD: Normocephalic. EYES: No injection or drainage. NECK: Supple, trachea midline. CARDIOVASCULAR: Regular rate and rhythm RESPIRATORY: Breath sounds equal bilaterally. No accessory muscle use. GASTROINTESTINAL: Abdomen soft, obese, non-tender EXTREMITIES: No cyanosis. Assessment/Plan Problem List: (1) Renal mass Status: Acute Plan: 10/15: Continue to await path results. Per case mgmt we will need this to apply for SSI/health services support. History: came into the emergency room complaining of abdominal pain and dysuria + weight loss. --CT ab/pelvis + CXR showed large complex partially calcified right renal mass, neoplasm suspected. --CT chest: no mets --Bone scan: no mets (2) Elevated PSA Status: Acute Plan: --metastatic prostate cancer suspected (3) Pancytopenia Status: Acute Plan: --likely due to bone marrow infiltration from prostate cancer Assessment 56y/o male with right kidney mass admitted with abdominal pain and dysuria. h/o non-Hodgkin's lymphoma-->treated with R-CHOP 15 years ago (Dr. Cunha) Hypertension. Diabetes mellitus PSA greater than 1900. Complex/calcified right renal mass. Attending Statement c/o joint pains and anxiety await path. D/W DR Galloway ( Pathologist). she is doing immunostains on BM bx. DR Chew is going to finalize kidney bx today. will follow. The exam, history, and the medical decision-making described in the above note were completed with the assistance of the mid-level provider. I reviewed and agree with the findings presented. I attest that I had a [id number] encounter with the patient on the same day, and personally performed and documented my assessment and findings in the medical record. Mary Price Oct 15, 2016 10:38 Bismark Arthur MD Oct 15, 2016 21:47
--- NOTE | 2016-10-15 11:59 | PD.CARD.PN ---
Subjective Subjective Remarks No CV complaints Objective Medications Current Medications Medications (Trade) Dose Ordered Sig/Annette Route Start Time Stop Time Status Last Admin (NS Flush) 2 ml UNSCH PRN FLUSH 10/07/16 00:15 (NS Flush) 2 ml BID FLUSH 10/07/16 09:00 10/15/16 09:58 (Tylenol) 650 mg Q4H PRN PO 10/07/16 00:15 (Zofran Inj) 4 mg Q6H PRN IVP 10/07/16 00:15 10/07/16 00:35 (Dulcolax Supp) 10 mg DAILY PRN [place] 10/07/16 00:15 (Milk Of Magnesia Liq) 30 ml Q12H PRN PO 10/07/16 00:15 10/14/16 06:35 (Senokot) 17.2 mg Q12H PRN PO 10/07/16 00:15 10/12/16 06:06 (Ambien) 5 mg HS PRN PO 10/07/16 00:15 10/13/16 21:04 (Heparin Inj) 5,000 units Q12HR SQ 10/07/16 09:00 Hold 10/08/16 11:11 (Narcan Inj) 0.4 mg UNSCH PRN IV 10/07/16 00:15 (Pepcid) 20 mg HS PO 10/07/16 21:00 10/14/16 21:43 (Glucotrol) 10 mg BIDAC PO 10/07/16 09:00 10/15/16 06:00 (D50w (Vial) Inj) 25 ml UNSCH PRN IV PUSH 10/07/16 09:00 (Glucagon Inj) 1 mg UNSCH PRN OTHER 10/07/16 09:00 (Flomax) 0.4 mg DAILY PO 10/08/16 09:00 10/15/16 09:58 (Percocet 5-325 Mg) 1 tab Q4H PRN PO 10/13/16 00:30 (Percocet 10-325 Mg) 1 tab Q4H PRN PO 10/13/16 00:30 10/15/16 10:01 (Cardizem) 60 mg Q8HR PO 10/13/16 14:00 10/15/16 06:00 (Betapace) 120 mg Q12HR PO 10/14/16 09:00 10/15/16 09:58 (Pill Splitter) 1 ea UNSCH PRN OTHER 10/14/16 09:30 (Miralax) 17 gm DAILY PO 10/15/16 09:45 10/15/16 10:02 (Oramorph Sr) 30 mg Q12HR PO 10/15/16 10:45 Vital Signs / I&O Vital Signs Date Time Temp Pulse Resp B/P Pulse Ox O2 Delivery O2 Flow Rate FiO2 10/15/16 08:00 97.8 66 16 122/57 96 10/15/16 04:00 97.0 69 18 104/55 95 10/15/16 00:00 96.8 63 16 103/59 98 10/14/16 20:30 97.9 68 18 129/63 96 10/14/16 20:00 68 10/14/16 17:34 16 10/14/16 16:00 96.8 67 16 103/60 97 10/14/16 12:40 97.1 78 16 130/70 96 I/O 10/14/16 10/14/16 10/14/16 10/15/16 10/15/16 10/15/16 07:00 15:00 23:00 07:00 15:00 23:00 Intake Total 240 ml 620 ml 480 ml 480 ml Balance 240 ml 620 ml 480 ml 480 ml Intake Oral 240 ml 620 ml 480 ml 480 ml # Voids 1 3 2 1 Physical Exam GENERAL: Morbidly obese, No acute distress. HEENT: Jugular venous pressure not able to be assessed CHEST: Lungs clear to auscultation bilaterally. Unlabored respiratory effort. CARDIAC: Regular rate and rhythm without S3, S4, or murmur. ABDOMEN: Soft, nontender, no hepatosplenomegaly. Bowel sounds present. EXTREMITIES: No clubbing, cyanosis, or edema. Laboratory Laboratory Tests Test 10/15/16 06:00 White Blood Count 3.7 TH/MM3 Red Blood Count 2.91 MIL/MM3 Hemoglobin 7.7 GM/DL Hematocrit 23.1 % Mean Corpuscular Volume 79.4 FL Mean Corpuscular Hemoglobin 26.4 PG Mean Corpuscular Hemoglobin 33.2 % Concent Red Cell Distribution Width 16.2 % Platelet Count 87 TH/MM3 Mean Platelet Volume 7.4 FL Neutrophils (%) (Auto) 69.4 % Lymphocytes (%) (Auto) 19.5 % Monocytes (%) (Auto) 9.6 % Eosinophils (%) (Auto) 0.7 % Basophils (%) (Auto) 0.8 % Neutrophils # (Auto) 2.6 TH/MM3 Lymphocytes # (Auto) 0.7 TH/MM3 Monocytes # (Auto) 0.4 TH/MM3 Eosinophils # (Auto) 0.0 TH/MM3 Basophils # (Auto) 0.0 TH/MM3 CBC Comment AUTO DIFF Differential Total Cells 100 Counted Neutrophils % (Manual) 58 % Band Neutrophils % 9 % Lymphocytes % 19 % Monocytes % 5 % Eosinophils % 1 % Basophils % 2 % Neutrophils # (Manual) 2.7 TH/MM3 Metamyelocytes 4 % Myelocytes 2 % Nucleated Red Blood Cells 4 /100 WBC Differential Comment FINAL DIFF MANUAL Platelet Estimate LOW Platelet Morphology Comment NORMAL Tear Drop Cells 1+ Assessment and Plan Problem List: (1) Paroxysmal atrial fibrillation Assessment and Plan: Continue sotalol 120 mg bid (2) Hypertensive cardiovascular disease Assessment and Plan: stable (3) Diabetes mellitus type 2 in obese Assessment and Plan I am signed off. Please call for CV questions or problems Joao June MD Oct 15, 2016 11:59
[2016-10-15] MEDS: MORPHINE SULFATE 30 MG CONTROLLED RELEASE TAB PO SCH ×2 (12:15→19:45)
--- NOTE | 2016-10-15 18:29 | EKG ---
Date Performed: 10/15/2016 Time Performed: 06:40:29 PTAGE: 56 years EKG: Sinus rhythm WITH FIRST DEGREE AV BLOCK LOW QRS VOLTAGE IN EXTREMITY LEADS ABNORMAL ECG PREVIOUS TRACING : 10/12/2016 18.31 DOCTOR: Cosme Wray Interpretating Date/Time 10/15/2016 18:28:49
[2016-10-15] MEDS: FAMOTIDINE 20 MG TAB PO SCH (19:46)
[2016-10-16] VITALS (7 sets, daily range): BP systolic 89–141; BP diastolic 49–92; PULSE 63–76; RESP 16–18; TEMP 96.4–97.8; O2SAT 96–99
[2016-10-16] MEDS: oxyCODONE/ACETAMINOPHEN 10 MG/325 MG TAB PO PRN ×5 (00:18→21:10)
[2016-10-16] MEDS: glipiZIDE 10 MG TAB PO SCH ×2 (06:00→15:41)
[2016-10-16] MEDS: INSULIN ASPART SUPPLEMENTAL SCALE SQ SCH ×4 (06:36→21:06)
[2016-10-16] MEDS: TAMSULOSIN HCL 0.4 MG CAP PO SCH (08:48)
[2016-10-16] MEDS: SOTALOL HCL 80 MG TAB PO SCH ×2 (08:48→20:57)
[2016-10-16] MEDS: POLYETHYLENE GLYCOL 17 GM PKG PO SCH (08:48)
[2016-10-16] MEDS: MORPHINE SULFATE 30 MG CONTROLLED RELEASE TAB PO SCH ×2 (08:48→20:58)
[2016-10-16] MEDS: SENNOSIDES 8.6 MG TAB PO PRN (08:49)
[2016-10-16] MEDS: SODIUM CHLORIDE 0.9% FLUSH 5 ML FLUSH FLUSH SCH ×2 (08:51→21:12)
--- NOTE | 2016-10-16 14:27 | HHI.PR ---
Subjective Interval History alert, oriented, feeling week Review of Systems Constitutional Constitutional Remarks 10 systems reviewed and otherwise negative Vitals/Results Intake & Output 10/15/16 10/15/16 10/16/16 15:00 23:00 07:00 Intake Total 720 ml 700 ml 240 ml Balance 720 ml 700 ml 240 ml Intake Oral 720 ml 700 ml 240 ml # Voids 4 2 1 Vital Signs Vital Signs Date Time Temp Pulse Resp B/P Pulse Ox O2 Delivery O2 Flow Rate FiO2 10/16/16 12:00 97.0 63 18 119/59 97 10/16/16 09:57 71 10/16/16 08:00 71 18 137/92 99 10/16/16 04:00 96.4 64 18 141/64 98 10/16/16 00:00 97.8 66 16 108/57 97 10/15/16 20:00 97.9 70 16 107/54 96 10/15/16 20:00 69 10/15/16 16:00 97.1 67 18 109/53 97 CBC/BMP: 10/15/16 0600 10/13/16 0540 Physical Exam General General Appearance: Well Nourished, No Acute Distress, Comfortable, Obese Appearance Remarks very pale Eyes Eye Exam: Pupils Equal, Pupils Reactive Ears & Nose Ears & Nose Exam: Tympanic Membranes Normal, Nasal Mucosa [place] Throat Throat Exam: Oral Mucosa [place] & Moist Neck Neck Exam: Neck Supple, Trachea Midline Pulmonary Resp Exam: Clear Bilaterally, Breath Sounds Equal, No Distress Cardiology CV Exam: Normal Sinus Rhythm Gastrointestinal/Abdomen GI Exam: Soft, Bowel Sounds Present, Non-Distended Genitourinary Remarks Clean dry band aid on the right flank where he had his biopsy done 10/09/16 Musculoskeletal MS Exam: Normal Tone Integumentary Skin Exam: Clear, Warm, Dry Extremeties Extremities Exam: No Edema, Pedal Pulses Palpable Neurologic Neuro Exam: Alert, Awake, Oriented, Speech Clear, Moving All Extremities Psychiatric Psych Exam: Appropriate Responses VTE Prophylaxis VTE Prophylaxis Device: SCDs Assessment/Plan Assessment/Plan DIAGNOSTIC IMPRESSION . Severe anemia . Thrombocytopenia . Calcified Right renal area mass , likely malignancy . prostate cancer, likely bone metastases . Status post biopsy 10/09/16 . History of non-Hodgkin's lymphoma. . Diabetes . Hypertension . Anxiety . Elevated alkaline phosphatase . Mildly elevated creatinine . Osteoarthritis, left knee pain . Morbid obesity . afib - new onset . Pancytopenia PLAN Cardiology and oncology following Transfuse 1 unit of blood today f/u bx results -PENDING S/P thoracic spine bx 10/13, results pending Evaluated per urology continue Flomax, A prostate biopsy can be done as outpatient. Continue to hold STAR/Metformin renal function stable monitoring engineer for bleeding Accu-Cheks before meals and at bedtime with insulin therapy no anticoagulation recommended due to pancytopenias Continue Sotalol, DVT prophylaxis, SCDs okay Pepcid for GI prophylaxis Physical therapy Percocet PRN Add Miralax daily Continue to f/u biopsy results D/W RN D/W pt Discussed Condition with: Patient Hubert Nunez MD Oct 16, 2016 14:27
[2016-10-16 18:11] LABS: HEREDITARY HEMOCHROM SPECIMEN WB Whole Blood (())
[2016-10-16] MEDS: FAMOTIDINE 20 MG TAB PO SCH (20:57)
--- NOTE | 2016-10-16 22:22 | PD.ONC.PN ---
Subjective Subjective Remarks no new c/o Objective Data Date Time Temp Pulse Resp B/P Pulse Ox O2 Delivery O2 Flow Rate FiO2 10/16/16 20:00 97.1 71 17 111/63 96 10/16/16 16:00 97.7 76 18 89/49 96 10/16/16 12:00 97.0 63 18 119/59 97 10/16/16 09:57 71 10/16/16 08:00 71 18 137/92 99 10/16/16 04:00 96.4 64 18 141/64 98 10/16/16 00:00 97.8 66 16 108/57 97 10/16/16 10/16/16 10/16/16 07:00 15:00 23:00 Intake Total 240 ml 480 ml Balance 240 ml 480 ml Result Diagram: 10/15/16 0600 10/13/16 0540 Laboratory Results Laboratory Tests Test 10/16/16 17:08 Blood Type A POSITIVE Antibody Screen NEGATIVE Crossmatch Leukocyte-Reduced Red Blood Cells Blood Bank Comment Administered Medications Medications (Trade) Dose Ordered Sig/Annette Route PRN Reason Start Time Stop Time Status Last Admin Dose Admin IV Flush (NS Flush) 2 ml BID FLUSH 10/07/16 09:00 10/16/16 21:12 Ondansetron HCl (Zofran Inj) 4 mg Q6H PRN IVP NAUSEA OR VOMITING 10/07/16 00:15 10/07/16 00:35 Magnesium Hydroxide (Milk Of Magnkeyana Liq) 30 ml Q12H PRN PO CONSTIPATION 10/07/16 00:15 10/14/16 06:35 Sennosides (Senokot) 17.2 mg Q12H PRN PO CONSTIPATION 10/07/16 00:15 10/16/16 08:49 Zolpidem Tartrate (Ambien) 5 mg HS PRN PO INSOMNIA 10/07/16 00:15 10/13/16 21:04 Heparin Sodium (Porcine) (Heparin Inj) 5,000 units Q12HR SQ 10/07/16 09:00 Hold 10/08/16 11:11 Famotidine (Pepcid) 20 mg HS PO 10/07/16 21:00 10/16/16 20:57 Glipizide (Glucotrol) 10 mg BIDAC PO 10/07/16 09:00 10/16/16 15:41 Tamsulosin HCl (Flomax) 0.4 mg DAILY PO 10/08/16 09:00 10/16/16 08:48 Oxycodone/ Acetaminophen (Percocet 10-325 Mg) 1 tab Q4H PRN PO PAIN 6-10 10/13/16 00:30 10/16/16 21:10 Sotalol HCl (Betapace) 120 mg Q12HR PO 10/14/16 09:00 10/16/16 20:57 Polyethylene Glycol (Miralax) 17 gm DAILY PO 10/15/16 09:45 10/16/16 08:48 Morphine Sulfate (Oramorph Sr) 30 mg Q12HR PO 10/15/16 10:45 10/16/16 20:58 Objective Remarks GENERAL: Well-nourished, well-developed patient. SKIN: Warm and dry. HEAD: Normocephalic. EYES: No scleral icterus. No injection or drainage. NECK: Supple, trachea midline. No JVD or lymphadenopathy. LYMPHATIC: No adenopathy. CARDIOVASCULAR: Regular rate and rhythm without murmurs. RESPIRATORY: Breath sounds equal bilaterally. No accessory muscle use. GASTROINTESTINAL: Abdomen soft, non-tender, nondistended. EXTREMITIES: No cyanosis, or edema. NEUROLOGICAL: No obvious focal deficit. Awake, alert, and oriented x3. PSYCHIATRIC: Appropriate mood and affect; insight and judgment normal. Assessment/Plan Problem List: (1) Renal mass Status: Acute Plan: 10/16/16 Bone bx = mets prostate ca. He has stage IV cancer . This is terminal and not curable. Recommend Lupron and casodex as outpt. d/w pt. OK to d/c home tomorrow. FU as outpt 10/15: Continue to await path results. Per case mgmt we will need this to apply for SSI/health services support. History: came into the emergency room complaining of abdominal pain and dysuria + weight loss. --CT ab/pelvis + CXR showed large complex partially calcified right renal mass, neoplasm suspected. --CT chest: no mets --Bone scan: no mets (2) Elevated PSA Status: Acute Plan: --metastatic prostate cancer suspected (3) Pancytopenia Status: Acute Plan: --likely due to bone marrow infiltration from prostate cancer Assessment 56y/o male with right kidney mass admitted with abdominal pain and dysuria. h/o non-Hodgkin's lymphoma-->treated with R-CHOP 15 years ago (Dr. Cunha) Hypertension. Diabetes mellitus PSA greater than 1900. Complex/calcified right renal mass. Bismark Arthur MD Oct 16, 2016 22:22
[2016-10-17] VITALS (7 sets, daily range): BP systolic 103–134; BP diastolic 58–76; PULSE 62–72; RESP 18–20; TEMP 96.2–97.7; O2SAT 95–97
[2016-10-17] MEDS: oxyCODONE/ACETAMINOPHEN 10 MG/325 MG TAB PO PRN ×3 (01:12→14:21)
[2016-10-17] MEDS: INSULIN ASPART SUPPLEMENTAL SCALE SQ SCH ×3 (05:47→16:46)
[2016-10-17] MEDS: SOTALOL HCL 80 MG TAB PO SCH (08:22)
[2016-10-17] MEDS: glipiZIDE 10 MG TAB PO SCH ×2 (08:22→16:45)
[2016-10-17] MEDS: SODIUM CHLORIDE 0.9% FLUSH 5 ML FLUSH FLUSH SCH (08:22)
[2016-10-17] MEDS: POLYETHYLENE GLYCOL 17 GM PKG PO SCH (08:23)
[2016-10-17] MEDS: TAMSULOSIN HCL 0.4 MG CAP PO SCH (08:23)
[2016-10-17] MEDS: MORPHINE SULFATE 30 MG CONTROLLED RELEASE TAB PO SCH (08:24)
--- NOTE | 2016-10-17 12:05 | PD.ONC.PN ---
Subjective Subjective Remarks Afebrile overnight. Patient without complaint. He is still overwhelmed with his recent diagnosis of stage IV prostatic adenocarcinoma. Objective Data Date Time Temp Pulse Resp B/P Pulse Ox O2 Delivery O2 Flow Rate FiO2 10/17/16 08:00 96.2 72 18 119/76 96 10/17/16 05:00 97.2 71 18 120/58 96 10/17/16 02:44 19 10/17/16 01:22 97.7 66 20 103/62 97 10/17/16 01:14 97.3 62 19 109/62 97 10/17/16 00:00 96.6 70 18 134/71 96 10/16/16 22:00 19 10/16/16 20:00 97.1 71 17 111/63 96 10/16/16 16:00 97.7 76 18 89/49 96 Result Diagram: 10/15/16 0600 10/13/16 0540 Laboratory Results Laboratory Tests Test 10/16/16 17:08 Blood Type A POSITIVE Antibody Screen NEGATIVE Crossmatch Leukocyte-Reduced Red Blood Cells Blood Bank Comment Administered Medications Medications (Trade) Dose Ordered Sig/Annette Route PRN Reason Start Time Stop Time Status Last Admin Dose Admin IV Flush (NS Flush) 2 ml BID FLUSH 10/07/16 09:00 10/17/16 08:22 Ondansetron HCl (Zofran Inj) 4 mg Q6H PRN IVP NAUSEA OR VOMITING 10/07/16 00:15 10/07/16 00:35 Magnesium Hydroxide (Milk Of Magnkeyana Liq) 30 ml Q12H PRN PO CONSTIPATION 10/07/16 00:15 10/14/16 06:35 Sennosides (Senokot) 17.2 mg Q12H PRN PO CONSTIPATION 10/07/16 00:15 10/16/16 08:49 Zolpidem Tartrate (Ambien) 5 mg HS PRN PO INSOMNIA 10/07/16 00:15 10/13/16 21:04 Heparin Sodium (Porcine) (Heparin Inj) 5,000 units Q12HR SQ 10/07/16 09:00 Hold 10/08/16 11:11 Famotidine (Pepcid) 20 mg HS PO 10/07/16 21:00 10/16/16 20:57 Glipizide (Glucotrol) 10 mg BIDAC PO 10/07/16 09:00 10/17/16 08:22 Tamsulosin HCl (Flomax) 0.4 mg DAILY PO 10/08/16 09:00 10/17/16 08:23 Oxycodone/ Acetaminophen (Percocet 10-325 Mg) 1 tab Q4H PRN PO PAIN 6-10 10/13/16 00:30 10/17/16 08:23 Sotalol HCl (Betapace) 120 mg Q12HR PO 10/14/16 09:00 10/17/16 08:22 Polyethylene Glycol (Miralax) 17 gm DAILY PO 10/15/16 09:45 10/17/16 08:23 Morphine Sulfate (Oramorph Sr) 30 mg Q12HR PO 10/15/16 10:45 10/17/16 08:24 Objective Remarks GENERAL: Middle aged male, lying in bed in nad. SKIN: Warm and dry. HEAD: Normocephalic. EYES: No injection or drainage. NECK: Supple, trachea midline. CARDIOVASCULAR: Regular rate and rhythm RESPIRATORY: Breath sounds equal bilaterally. No accessory muscle use. GASTROINTESTINAL: Abdomen soft, obese, non-tender EXTREMITIES: No cyanosis or edema. Assessment/Plan Problem List: (1) Pancytopenia Status: Acute Plan: --likely due to bone marrow infiltration from prostate cancer (2) Stage IV adenocarcinoma of prostate Status: Acute Plan: 10/17/16: clear for discharge. d/w case management, working to apply for SSI medicaid. fs faxed to new patient referrals for follow up. came into the emergency room complaining of abdominal pain and dysuria + weight loss. --CT ab/pelvis + CXR showed large complex partially calcified right renal mass, neoplasm suspected. --CT chest: no mets --Bone scan: no mets Bone bx = mets prostate ca. + stage IV cancer . This is terminal and not curable. Recommend Lupron and casodex as outpt. Assessment 56y/o male with stage IV prostate cancer, newly diagnosed. h/o non-Hodgkin's lymphoma-->treated with R-CHOP 15 years ago (Dr. Cunha) Hypertension. Diabetes mellitus PSA greater than 1900. Complex/calcified right renal mass. Attending Statement pain is improved. CM has d/w him to get on SSI so that he can come to office for his treatment D/W JACKIE ( [place]) ok to d/c home fu as outpt The exam, history, and the medical decision-making described in the above note were completed with the assistance of the mid-level provider. I reviewed and agree with the findings presented. I attest that I had a [id number] encounter with the patient on the same day, and personally performed and documented my assessment and findings in the medical record. Sharri Stinson Oct 17, 2016 12:05 Bismark Arthur MD Oct 17, 2016 16:30
[2016-10-17 14:00] LABS: AUTOMATED NEUTROPHIL # 4.6 TH/MM3 (1.8-7.7); BASOPHIL # 0.1 TH/MM3 (0-0.2); BASOPHIL % 0.9 % (0.0-2.0); EOSINOPHIL % 0.5 % (0.0-4.0); HEMATOCRIT 30.2 % (39.0-51.0); LYMPHOCYTE # 0.9 TH/MM3 (1.0-4.8); MEAN CELL VOLUME 78.8 FL (80.0-100.0); MEAN CORPUSCULAR HEMOGLOBIN 25.5 PG (27.0-34.0); MEAN CORPUSCULAR HGB CONC 32.4 % (32.0-36.0); MONO % 8.6 % (0.0-8.0); PLATELET COUNT 139 TH/MM3 (150-450); RED BLOOD COUNT 3.83 MIL/MM3 (4.50-5.90); RED CELL DISTRIBUTION WIDTH 17.9 % (11.6-17.2); WHITE BLOOD COUNT 6.1 TH/MM3 (4.0-11.0)
[2016-10-17 14:05] LABS: HEMO FLAGS AUTO DIFF
[2016-10-17 14:50] LABS: BANDS 9 % (0-6); CORRECTED NUCLEATED RBC 7 /100 WBC (0-0); EOSINOPHILS 1 % (0-4); METAMYELOCYTES 6 % (0-1); NEUTROPHIL # MANUAL DIFF 5.1 TH/MM3 (1.8-7.7); POLYS (SEG NEUTROPHILS) 69 % (16-70); WBC DIFF SAMPLE 100
[2016-10-17 14:51] LABS: PLATELET ESTIMATE SMEAR LOW (NORMAL); PLATELET MORPHOLOGY NORMAL (NORMAL); SCAN/DIFF FINAL DIFF MANUAL
--- NOTE | 2016-10-17 15:37 | HHI.PR ---
Subjective Interval History alert, oriented, no lightheadedness when ambulating Review of Systems Constitutional Constitutional Remarks fatigue, 10 systems reviewed and otherwise negative Vitals/Results Intake & Output 10/16/16 10/16/16 10/17/16 15:00 23:00 07:00 Intake Total 480 ml 240 ml Output Total 380 ml Balance 480 ml 240 ml -380 ml Intake Oral 480 ml 240 ml Output Urine Total 380 ml # Voids 3 1 # Bowel Movements 0 Vital Signs Vital Signs Date Time Temp Pulse Resp B/P Pulse Ox O2 Delivery O2 Flow Rate FiO2 10/17/16 12:00 96.5 66 18 122/68 95 10/17/16 08:03 66 10/17/16 08:00 96.2 72 18 119/76 96 10/17/16 05:00 97.2 71 18 120/58 96 10/17/16 02:44 19 10/17/16 01:22 97.7 66 20 103/62 97 10/17/16 01:14 97.3 62 19 109/62 97 10/17/16 00:00 96.6 70 18 134/71 96 10/16/16 22:00 19 10/16/16 20:00 97.1 71 17 111/63 96 10/16/16 16:00 97.7 76 18 89/49 96 CBC/BMP: 10/17/16 1350 10/13/16 0540 Lab Results Laboratory Tests Test 10/16/16 10/17/16 17:08 13:50 Blood Type A POSITIVE Antibody Screen NEGATIVE Crossmatch Leukocyte-Reduced Red Blood Cells Blood Bank Comment White Blood Count 6.1 TH/MM3 Red Blood Count 3.83 MIL/MM3 Hemoglobin 9.8 GM/DL Hematocrit 30.2 % Mean Corpuscular Volume 78.8 FL Mean Corpuscular Hemoglobin 25.5 PG Mean Corpuscular Hemoglobin 32.4 % Concent Red Cell Distribution Width 17.9 % Platelet Count 139 TH/MM3 Mean Platelet Volume 7.2 FL Neutrophils (%) (Auto) 76.0 % Lymphocytes (%) (Auto) 14.0 % Monocytes (%) (Auto) 8.6 % Eosinophils (%) (Auto) 0.5 % Basophils (%) (Auto) 0.9 % Neutrophils # (Auto) 4.6 TH/MM3 Lymphocytes # (Auto) 0.9 TH/MM3 Monocytes # (Auto) 0.5 TH/MM3 Eosinophils # (Auto) 0.0 TH/MM3 Basophils # (Auto) 0.1 TH/MM3 CBC Comment AUTO DIFF Differential Total Cells 100 Counted Neutrophils % (Manual) 69 % Band Neutrophils % 9 % Lymphocytes % 10 % Monocytes % 5 % Eosinophils % 1 % Neutrophils # (Manual) 5.1 TH/MM3 Metamyelocytes 6 % Nucleated Red Blood Cells 7 /100 WBC Differential Comment FINAL DIFF MANUAL Platelet Estimate LOW Platelet Morphology Comment NORMAL Physical Exam General General Appearance: Well Nourished, No Acute Distress, Comfortable, Obese Appearance Remarks very pale Eyes Eye Exam: Pupils Equal, Pupils Reactive Ears & Nose Ears & Nose Exam: Tympanic Membranes Normal, Nasal Mucosa [place] Throat Throat Exam: Oral Mucosa [place] & Moist Neck Neck Exam: Neck Supple, Trachea Midline Pulmonary Resp Exam: Clear Bilaterally, Breath Sounds Equal, No Distress Cardiology CV Exam: Normal Sinus Rhythm Gastrointestinal/Abdomen GI Exam: Soft, Bowel Sounds Present, Non-Distended Genitourinary Remarks Clean dry band aid on the right flank where he had his biopsy done 10/09/16 Musculoskeletal MS Exam: Normal Tone Integumentary Skin Exam: Clear, Warm, Dry Extremeties Extremities Exam: No Edema, Pedal Pulses Palpable Neurologic Neuro Exam: Alert, Awake, Oriented, Speech Clear, Moving All Extremities Psychiatric Psych Exam: Appropriate Responses VTE Prophylaxis VTE Prophylaxis Device: SCDs Assessment/Plan Assessment/Plan DIAGNOSTIC IMPRESSION . Severe anemia, transfused . Thrombocytopenia . Calcified Right renal area mass , likely malignancy . prostate cancer, likely bone metastases . Status post biopsy 10/09/16 . History of non-Hodgkin's lymphoma. . Diabetes . Hypertension . Anxiety . Elevated alkaline phosphatase . Mildly elevated creatinine . Osteoarthritis, left knee pain . Morbid obesity . afib - new onset . Pancytopenia PLAN Cardiology and oncology following f/u bone bx results -PENDING continue Flomax, A prostate biopsy can be done as outpatient. d/ home today f/u with ncology next week Continue to f/u biopsy results D/W RN D/W pt Discharge Minutes: 45 Hubert Nunez MD Oct 17, 2016 15:37 Pepcid for GI prophylaxis Physical therapy Percocet PRN Add Miralax daily Continue to f/u biopsy results D/W RN D/W pt Hubert Nunez MD Oct 17, 2016 15:37
--- NOTE | 2016-12-21 17:13 | HHI.DS ---
Discharge Summary Admission Date Oct 07, 2016 at 00:06 Discharge Date: Oct 17, 2016 Admitting Diagnosis metastatic disease, abdominal pain, renal mass, anxiety (1) Abdominal pain (2) Stage IV adenocarcinoma of prostate (3) Diabetes mellitus type 2 in obese (4) Paroxysmal atrial fibrillation (5) Hypertensive cardiovascular disease (6) Pancytopenia (7) Elevated PSA (8) Renal mass (9) Metastatic disease (10) Anxiety (11) Atrial fibrillation (12) Acute renal injury Procedures S/P thoracic spine bx 10/13, Imaging Last Impressions Bone Biopsy CT 10/13/16 0000 Signed Impressions: Service Date/Time: Thursday, October 13, 2016 14:56 - CONCLUSION: Uncomplicated CT guided bone biopsy of the right iliac wing for presumed prostate carcinoma metastasis. Maicol Rodriguez MD FACR Thoracic Spine MRI 10/11/16 0000 Signed Impressions: Service Date/Time: Tuesday, October 11, 2016 07:37 - CONCLUSION: 1. Diffusely abnormal bone marrow signal with decreased T1 signal and innumerable patchy areas of increased T2 signal. Findings are strongly suggestive of diffuse osseous metastatic disease. 2. No canal or neural foraminal stenosis is identified. Piyush Goncalves MD Renal Biopsy CT 10/09/16 0000 Signed Impressions: Service Date/Time: October 15:14 - CONCLUSION: Uncomplicated CT guided biopsy of the complex cystic structure containing extensive calcification. Goldy Go MD Chest CT 10/07/16 0000 Signed Impressions: Service Date/Time: Friday, October 07, 2016 13:12 - CONCLUSION: Unremarkable study. Numerous gallstones. Prominent osteophytes throughout the thoracic spine but no evidence of metastatic disease. Nikolas Shipley MD Bone Scan Nuclear Medicine 10/07/16 0000 Signed Impressions: Service Date/Time: Friday, October 07, 2016 13:45 - CONCLUSION: Normal examination other than slight uptake around the shoulders and knees bilaterally consistent with osteoarthritis. Nikolas Shipley MD Chest X-Ray 10/06/161901 Signed Impressions: Service Date/Time: Thursday, October 06, 2016 19:14 - CONCLUSION: No acute disease. No significant change has occurred. Jeff Alcala MD Abdomen/Pelvis CT 10/06/161901 Signed Impressions: Service Date/Time: Thursday, October 06, 2016 20:38 - CONCLUSION: Large complex partially calcified right renal mass. Neoplasm needs to be excluded. Bilateral simple renal cysts. Cholelithiasis. Sclerotic bony texture which may or present blastic metastatic disease. Jeff Alcala MD Hospital Course The patient is a 56-year-old obese gentleman with a past medical history significant for hypertension, type 2 diabetes and non-Hodgkin's lymphoma which has been in remission for 15 years. The patient had followed with Dr. Octavio Cunha for his non-Hodgkin's lymphoma and has not seen him for years. He presented to the ER for evaluation of dysuria and abdominal pain. The patient reported over the last two months he had been experiencing urinary retention, as well as, some burning sensation whenever he is able to urinate. Symptoms have been progressing and within the past one week has gotten worse so he came into the ER for evaluation. The patient reported he had seen Dr. Sánchez and told that he might have an enlarged prostate. The patient also experienced some abdominal pain which was vague. Denied any nausea or vomiting. Admitted to 30-40 pounds unintentional weight loss over the last one month. 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 He denied flank pain, testicular or scrotal pain, urethral discharge, chest pain or shortness of breath at this point. Evaluated in the ED and found with: Shows a WBC count of 7.1, hemoglobin 10.9, hematocrit 32.4, platelet count of 165. Chemistry shows sodium 137, potassium 3.5, chloride 100, bicarb 94.8, BUN 21, creatinine 1.44, glucose 179, potassium 8.3, AST 43, ALT 36, alk phos 1003 which is elevated. CK negative. Troponin less than 0.02, total protein 7.6, albumin 2.7, lipase of 377. Urinanalysis appears negative. PERTINENT IMAGING STUDIES Include a chest x-ray done in the emergency room which showed no acute disease. The patient had a CT scan of the abdomen and pelvis which shows large complex partially calcified right renal mass and neoplasm needs to be excluded. Also seen were bilateral simple renal cysts, some gallstones and sclerotic bony texture which may represent blastic metastatic disease. The patient is admitted for observation initially. Continue with IV fluids, recheck creatinine in the morning. Resume home Metoprolol and Glipizide. Started the patient on ADA diet. Hold STAR inhibitors and Metformin for now and will resume once renal function is better. Obtained oncology consultation. The patient was scheduled for a bone scan and a CT of his chest.. DVT prophylaxis, GI prophylaxis. The patient counseled aggressively about the diagnosis and need to control anxiety. Discussion seemed to have helped. Elevated alkaline phosphatase possibly could be secondary to metastatic disease. Oncology evaluated, further work up recommended. Imaging studies ordered. Thoracic spine MRI + poss. metastatic disease Elevated PSA, poss. prostate cancer as primary with mets to spine Had bone and renal bx. Bone scan no mets CT chest no mets S/P renal bx results -cystic renal cell carcinoma. S/P thoracic spine bx 10/13, positive for poorly differentiated adenocarcinoma, consistent with prostate carcinoma Per oncology recommendations- Bone bx = mets prostate ca. + stage IV cancer . This is terminal and not curable. Recommended Lupron and casodex as outpt. Also evaluated by urology continue Flomax, urine sx improved Per urology recommendations, may benefit from Sodium Fluoride PET CT or Axumin PET CT as they have a better sensitivity for Metastatic Prostate Cancer. These can be done as outpatient. Otherwise, a full body MRI would be an acceptable alternative. A prostate biopsy can be done as outpatient. He cleared for discharge Continued to hold STAR/Metformin renal function stable, was given IVF BMP followed Anemia, low iron stores noted check stools for OB HH dropped < 8, received PRBC x 2 on 10/13 and 10/17 HH stabilized. Pancytopenia platelet monitored. monitored for bleeding Accu-Cheks before meals and at bedtime with insulin therapy Continued with home meds During hospitalization, pt. went into afib new onset- appreciate card input echo done, EF 55 to 60% no anticoagulation recommended due to pancytopenias Put on Sotalol, converted to SR overnight Avoid anticoagulants SCDs okay for DVT prophylaxis Pepcid for GI prophylaxis Physical therapy for evaluation and treatment Percocet PRN Added Miralax daily Pt. remained anxious about diagnosis, emotional support provided after work up done and bx result discussed, pt. cleared for discharge. Pain was controlled, urinary symptoms improved no longer in afib Pt.discharged home in stable condition. Instructed to f/u with oncology and urology Pt Condition on Discharge: Stable Discharge Disposition: Discharge Home Discharge Instructions DIET: Follow Instructions for: Heart Healthy Diet, Diabetic Diet Activities you can perform: Weight Bearing as Deep Follow up Referrals: Oncology - 3-[address] Arthur Urology - 3-5 Days with Oni Suarez MD New Medications: Tamsulosin (Flomax) 0.4 Mg Cap 0.4 MG PO DAILY Dysuria #30 Ref 6 CAP Continued Medications: Glipizide (Glipizide) 10 Mg Tab 10 MG PO BIDAC Take 30 minutes before a meal Blood Sugar Management #60 Ref 0 TAB Metformin (Metformin) 1,000 Mg Tab 1000 MG PO BIDPC With meals Blood Sugar Management #60 Ref 0 TAB Metoprolol Tartrate (Metoprolol Tartrate) 100 Mg Tab 100 MG PO BID #60 Ref 0 TAB Chelsi Boss [facility] December 21, 2016 17:13
== END 2016-10-17 17:55 | disposition home or self-care (01) | DRG 674 ==
LOC: NEPE 18:32 → INTOOBSV 22:07 → OBSVTOIN 22:07 → NEDA 22:07 → OBSVTOIN 10-07 00:06 → NEPHCDU 10-07 01:56 → HOCA 10-07 15:54
PROVIDERS: ADMIT Internal Medicine; ATTEND Internal Medicine
PROC: 0TB03ZX Excision of Right Kidney, Percutaneous Approach, Diagnostic (ICD-10-PCS; principal; 2016-10-09)
PROC: 0QB23ZX Excision of Right Pelvic Bone, Percutaneous Approach, Diagnostic (ICD-10-PCS; 2016-10-13)
PROC: 30233N1 Transfusion of Nonautologous Red Blood Cells into Peripheral Vein, Percutaneous Approach (ICD-10-PCS; 2016-10-13)
DX: C64.1 Malignant neoplasm of right kidney, except renal pelvis (principal); Z68.41 Body mass index [BMI] 40.0-44.9, adult; D61.818 Other pancytopenia; C79.51 Secondary malignant neoplasm of bone; C61 Malignant neoplasm of prostate; I48.0 Paroxysmal atrial fibrillation; I11.9 Hypertensive heart disease without heart failure; E66.01 Morbid (severe) obesity due to excess calories; N28.1 Cyst of kidney, acquired; E11.9 Type 2 diabetes mellitus without complications; F41.9 Anxiety disorder, unspecified; R74.8 Abnormal levels of other serum enzymes; R63.4 Abnormal weight loss; K80.20 Calculus of gallbladder without cholecystitis without obstruction; M17.12 Unilateral primary osteoarthritis, left knee; Z79.84 Long term (current) use of oral hypoglycemic drugs; Z85.72 Personal history of non-Hodgkin lymphomas; Z92.21 Personal history of antineoplastic chemotherapy; Z87.891 Personal history of nicotine dependence
CPT/HCPCS: 20225; 36430; 50200; 71010; 71250; 72146; 74177; 77012; 78306; 80048; 80053; 80076; 81001; 81256; 82550; 82607; 82728; 82746; 82948; 83540; 83550; 83690; 84080; 84153; 84155; 84443; 84484; 84550; 85007; 85014; 85018; 85027; 85384; 85610; 85730; 86850; 86900; 86901; 86920; 88305; 88307; 88311; 88333; 88341; 88342; 93005; 93306; 96361; 96374; 99152; 99153; A9503; C1830; G0103; J1644; J1815; J2060; J2250; J2270; J2405; J3010; J7030; J7050; P9016; Q9967

== ENCOUNTER 2016-10-29 12:45 | Emergency (ER) | payer OTHER ==
[~2016-10-29] VITALS: Ht 182.9 cm; Wt 136.4 kg
[~2016-10-29 12:45] MED LIST: GLIP10TA6 PO; LISI20TA3 PO; METF1000 PO; METO100T PO; OXYC1TAB63 PO; TAMS5CAP PO
[2016-10-29 12:48] VITALS: BP 133/84; PULSE 75; RESP 20; TEMP 97.6; O2SAT 99
[2016-10-29] MEDS ORDERED: SODIUM CHLORIDE 0.9% FLUSH 10 ML FLUSH IV FLUSH PRN (13:00)
[2016-10-29 13:07] VITALS: RESP 18; O2SAT 98
--- NOTE | 2016-10-29 13:07 | PD ---
HPI Chief Complaint: General Weakness Time Seen by Provider: 12:52 Travel History International Travel<30 days: No Contact w/Intl Traveler<30days: No Traveled to known affect area: No History of Present Illness HPI 56-year-old male with history of hypertension, diabetes, non-Hodgkin lymphoma in remission for the last 15 years, admitted last month and diagnosed with metastatic prostate cancer, discharged on 10/17/16, brought in by ambulance from home for evaluation of generalized weakness, dark/tarry stools, and abdominal pain. Patient reports diffuse abdominal discomfort that started today which she described as burning/discomfort. Currently this discomfort is moderate, worse with movement and palpation. History of appendectomy. No other abdominal surgeries. No fevers or chills. No nausea or vomiting. He is not on any antiplatelets or anticoagulants. Chart review shows that during the patient's admission last month, he was evaluated by oncologist Dr. Arthur, and according to his note the patient has stage IV prostate CA which is not curable, and he recommended Lupron and Casodex as an outpatient. Patient informs me that he has been unable to fill these medications because of insurance reasons. PFSH Past Medical History Blood Disorders: No Anxiety: Yes Depression: No Heart Rhythm Problems: No Cancer: Yes (NON-HODGKINS LYMPHOMA) Cardiovascular Problems: Yes High Cholesterol: No Chemotherapy: Yes Chest Pain: No Congestive Heart Failure: No Diabetes: Yes Diminished Hearing: No Endocrine: Yes Genitourinary: Yes (burning, frequency) Hypertension: Yes Immune Disorder: No Musculoskeletal: No Neurologic: No Psychiatric: Yes Reproductive: No Respiratory: No Radiation Therapy: Yes Thyroid Disease: No Past Surgical History Appendectomy: Yes Body Medical Devices: R-sublcavian port. Other Surgery: Yes (PORT PLACEMENT 2000) Social History Alcohol Use: No Tobacco Use: No Substance Use: No Allergies-Medications (Allergen,Severity, Reaction): Coded Allergies: Penicillin (Verified Allergy, Unknown, 10/29/16) Reported Meds & Prescriptions Reported Meds & Active Scripts Active Protonix (Pantoprazole Sodium) 40 Mg Tab 40 Mg PO DAILY Lortab (Hydrocodone-Acetaminophen) 5-325 Mg Tab 1 Tab PO Q6H PRN Flomax (Tamsulosin HCl) 0.4 Mg Cap 0.4 Mg PO DAILY Oxycodone-Acetaminophen 5-325 mg Tab 1 Tab PO Q6H PRN Reported Lisinopril-Hctz 20-25 Mg Tab 1 Tab PO BID Metoprolol Tartrate 100 Mg Tab 100 Mg PO BID Glipizide 10 Mg Tab 10 Mg PO BIDAC Take 30 minutes before a meal Metformin (Metformin HCl) 1,000 Mg Tab 1,000 Mg PO BIDPC With meals Review of Systems Except as stated in HPI: all other systems reviewed are Neg Physical Exam Narrative GENERAL: Pleasant, well-developed, well-nourished, awake, alert, overweight, no acute distress. SKIN: Warm and dry. Mild diffuse jaundice. HEAD: Atraumatic. Normocephalic. EYES: Pupils equal and round. No scleral icterus. No injection or drainage. ENT: Mucous membranes pink and moist. NECK: Trachea midline. No JVD. No nuchal rigidity. CARDIOVASCULAR: Regular rate and rhythm. RESPIRATORY: No accessory muscle use. Clear to auscultation. Breath sounds equal bilaterally. GASTROINTESTINAL: Abdomen soft, nondistended. Mild diffuse tenderness without peritoneal signs. Normal bowel sounds. RECTUM: No masses, no fissures, no hemorrhoids, heme-negative brown stool. MUSCULOSKELETAL: No obvious deformities. No clubbing. No cyanosis. No edema. NEUROLOGICAL: Awake and alert. No obvious cranial nerve deficits. Motor grossly within normal limits. Normal speech. PSYCHIATRIC: Appropriate mood and affect; insight and judgment normal. Data Data Last Documented VS Vital Signs Date Time Temp Pulse Resp B/P Pulse Ox O2 Delivery O2 Flow Rate FiO2 10/29/16 14:55 70 20 149/82 97 Room Air 10/29/16 12:48 97.6 Orders Complete Blood Count With Diff (10/29/16 13:00) Comprehensive Metabolic Panel (10/29/16 13:00) Lipase (10/29/16 13:00) Lactic Acid (10/29/16 13:00) Prothrombin Time / Inr (Pt) (10/29/16 13:00) Act Partial Throm Time (Ptt) (10/29/16 13:00) Urinalysis - C+S If Indicated (10/29/16 13:00) Ct Abd/Pel W Iv Contrast(Rout) (10/29/16 13:00) Iv Access Insert/Monitor (10/29/16 13:00) Ecg Monitoring (10/29/16 13:00) Oximetry (10/29/16 13:00) Sodium Chloride 0.9% Flush (Ns Flush) (10/29/16 13:00) Morphine Inj (Morphine Inj) (10/29/16 13:30) Electrocardiogram (10/29/16 13:05) Dextrose 50% In Sergo (Vial) Inj (D50w (Vi (10/29/16 14:45) Iohexol 350 Inj (Omnipaque 350 Inj) (10/29/16 15:49) Pantoprazole Inj (Protonix Inj) (10/29/16 16:30) Labs Laboratory Tests Test 10/29/16 10/29/16 13:15 13:45 White Blood Count 5.8 TH/MM3 Red Blood Count 3.75 MIL/MM3 Hemoglobin 9.8 GM/DL Hematocrit 29.4 % Mean Corpuscular Volume 78.3 FL Mean Corpuscular Hemoglobin 26.1 PG Mean Corpuscular Hemoglobin 33.3 % Concent Red Cell Distribution Width 18.6 % Platelet Count 77 TH/MM3 Mean Platelet Volume 7.2 FL Neutrophils (%) (Auto) 75.1 % Lymphocytes (%) (Auto) 14.4 % Monocytes (%) (Auto) 9.5 % Eosinophils (%) (Auto) 0.4 % Basophils (%) (Auto) 0.6 % Neutrophils # (Auto) 4.3 TH/MM3 Lymphocytes # (Auto) 0.8 TH/MM3 Monocytes # (Auto) 0.5 TH/MM3 Eosinophils # (Auto) 0.0 TH/MM3 Basophils # (Auto) 0.0 TH/MM3 CBC Comment AUTO DIFF Differential Total Cells 100 Counted Neutrophils % (Manual) 48 % Band Neutrophils % 24 % Lymphocytes % 18 % Monocytes % 7 % Neutrophils # (Manual) 4.4 TH/MM3 Metamyelocytes 3 % Nucleated Red Blood Cells 3 /100 WBC Differential Comment FINAL DIFF MANUAL Platelet Estimate LOW Platelet Morphology Comment NORMAL Tear Drop Cells 1+ Ovalocytes 1+ Prothrombin Time 13.2 SEC Prothromb Time International 1.2 RATIO Ratio Activated Partial 26.2 SEC Thromboplast Time Sodium Level 141 MEQ/L Potassium Level 3.7 MEQ/L Chloride Level 103 MEQ/L Carbon Dioxide Level 26.9 MEQ/L Anion Gap 11 MEQ/L Blood Urea Nitrogen 18 MG/DL Creatinine 0.99 MG/DL Estimat Glomerular Filtration 78 ML/MIN Rate Random Glucose 58 MG/DL Lactic Acid Level 1.3 mmol/L Calcium Level 7.5 MG/DL Total Bilirubin 0.8 MG/DL Aspartate Amino Transf 38 U/L (AST/SGOT) Alanine Aminotransferase 12 U/L (ALT/SGPT) Alkaline Phosphatase 889 U/L Total Protein 6.6 GM/DL Albumin 2.9 GM/DL Lipase 141 U/L Urine Color YELLOW Urine Turbidity CLEAR Urine pH 6.0 Urine Specific [place] 1.010 Urine Protein NEG mg/dL Urine Glucose (UA) NEG mg/dL Urine Ketones NEG mg/dL Urine Occult Blood NEG Urine Nitrite NEG Urine Bilirubin NEG Urine Urobilinogen 2.0 MG/DL Urine Leukocyte Esterase NEG Urine RBC 1 /hpf Urine WBC 1 /hpf Urine Mucus FEW /lpf Microscopic Urinalysis Comment CULT NOT INDICATED MDM Medical Decision Making Medical Screen Exam Complete: Yes Emergency Medical Condition: Yes Differential Diagnosis Anemia, GI bleed, metastatic disease, acute intra-abdominal infection, metabolic abnormality, failure to thrive Narrative Course Vital signs are within normal limits. CBC shows WBC 5.8, hemoglobin 9.8, hematocrit 29.4, platelets 77. These are all around his baseline. Band neutrophils 24%. CMP is remarkable for alkaline phosphatase 889, otherwise unremarkable. The patient has metastatic disease to his bone. Lactic acid is 1.3. Lipase is 141. UA is not suggestive of UTI. CT abdomen pelvis: CONCLUSION: 1. There is a 9.1 x 8.6 cm partially calcified, septated mass projecting off the lower pole of the right kidney concerning for malignancy. Biopsy would be warranted. 2. Diffuse bony sclerosis with splenomegaly suggesting a myelofibrosis. Metastatic disease to bone is not excluded. The patient has undergone recent bone marrow biopsy. Patient was made aware of all findings. He is resting comfortably. Kidney and bone were biopsied during last admission. The patient was given a dose of morphine and reports feeling significantly improved. He has stage IV metastatic prostate cancer and has an appointment with his oncologist on Thursday which is in 2 days. I did offer to admit him for overnight observation, however the patient would like to be discharged home. He was mainly concerned about the burning sensation that he was feeling in his abdomen which has improved after morphine. He tells me that he has a prescription for Percocet, however he does not like the way makes her feel. I' ll discharge him home with a perception for Lortab as well as Protonix. He was informed on when to return to the emergency department. He verbalizes understanding and agreement with plan. Diagnosis Primary Impression: Abdominal pain Qualified Code: R10.9 - Abdominal pain, unspecified location Referrals: Primary Care Physician 3 days Additional Instructions: Follow-up with your primary care physician this week. Follow-up with your oncologist on Thursday as scheduled. Return to the emergency department for worsening symptoms or any other concerns. Scripts Pantoprazole (Protonix)40 Mg Tab40 Mg PO DAILY #30 TAB Ref 0 Prov:Favio Archuleta MD 10/29/16 Hydrocodone-Acetaminophen (Lortab)5-325 Mg Tab1 Tab PO Q6H PRN (PAIN) #20 TAB Ref 0 Prov:Favio Archuleta MD 10/29/16 Disposition: 01 DISCHARGE HOME Condition: Stable Favio Archuleta MD Oct 29, 2016 13:07
[2016-10-29] MEDS ORDERED: LISI20TA3 PO (13:10)
[2016-10-29] MEDS ORDERED: MORPHINE SULFATE 4 MG/ML INJ IV PUSH ONE (13:30)
[2016-10-29 13:34] LABS: AUTOMATED NEUTROPHIL # 4.3 TH/MM3 (1.8-7.7); BASOPHIL % 0.6 % (0.0-2.0); EOSINOPHIL % 0.4 % (0.0-4.0); HEMATOCRIT 29.4 % (39.0-51.0); LYMPH % 14.4 % (9.0-44.0); LYMPHOCYTE # 0.8 TH/MM3 (1.0-4.8); MEAN CELL VOLUME 78.3 FL (80.0-100.0); MEAN CORPUSCULAR HEMOGLOBIN 26.1 PG (27.0-34.0); MEAN CORPUSCULAR HGB CONC 33.3 % (32.0-36.0); MONO % 9.5 % (0.0-8.0); NEUT % 75.1 % (16.0-70.0); PLATELET COUNT 77 TH/MM3 (150-450); RED BLOOD COUNT 3.75 MIL/MM3 (4.50-5.90); RED CELL DISTRIBUTION WIDTH 18.6 % (11.6-17.2); WHITE BLOOD COUNT 5.8 TH/MM3 (4.0-11.0)
[2016-10-29 13:40] LABS: HEMO FLAGS AUTO DIFF
[2016-10-29 13:47] LABS: APTT (PATIENT) 26.2 SEC (24.3-30.1); INTERNATIONAL NORMALIZED RATIO 1.2 RATIO; PROTHROMBIN TIME - PATIENT 13.2 SEC (9.8-11.6)
[2016-10-29 14:07] LABS: BLOOD, URINE NEG (NEG); COMMENT (UR) CULT NOT INDICATED; CULTURE IF INDICATED CULT NOT INDICATED; GLUCOSE,URINE NEG (NEG); KETONE, URINE NEG (NEG); MUCUS URINE FEW /lpf (OCC); NITRITE,URINE NEG (NEG); URINE COLOR YELLOW (YELLW/STRAW)
[2016-10-29 14:10] LABS: ALT (GPT) 12 U/L (12-78); ANION GAP 11 MEQ/L (5-15); AST (GOT) 38 U/L (15-37); BICARBONATE 26.9 MEQ/L (21.0-32.0); BLOOD UREA NITROGEN 18 MG/DL (7-18); CHLORIDE 103 MEQ/L (98-107); GLOMERULAR FILTRATION RATE 78 ML/MIN (>89); POTASSIUM 3.7 MEQ/L (3.5-5.1); SODIUM (NA) 141 MEQ/L (136-145)
[2016-10-29 14:12] LABS: ALKALINE PHOSPHATASE 889 U/L (45-117); TOTAL BILIRUBIN ADULT 0.8 MG/DL (0.2-1.0)
[2016-10-29 14:17] LABS: BANDS 24 % (0-6); CORRECTED NUCLEATED RBC 3 /100 WBC (0-0); METAMYELOCYTES 3 % (0-1); NEUTROPHIL # MANUAL DIFF 4.4 TH/MM3 (1.8-7.7); OVALOCYTES 1+ (NORMAL); PLATELET ESTIMATE SMEAR LOW (NORMAL); PLATELET MORPHOLOGY NORMAL (NORMAL); POLYS (SEG NEUTROPHILS) 48 % (16-70); SCAN/DIFF FINAL DIFF MANUAL; TEARDROP RBCS 1+ (NORMAL); WBC DIFF SAMPLE 100
[2016-10-29] MEDS ORDERED: DEXTROSE 50% IN WATER 50 ML VIAL(D50) IV PUSH ONE (14:45)
[2016-10-29 14:55] VITALS: BP 149/82; PULSE 70; RESP 20; O2SAT 97
[2016-10-29] MEDS ORDERED: IOHEXOL 350 MG/ML 10 ML VIAL (for RAD DIAG) IV ONE (15:49)
--- NOTE | 2016-10-29 16:01 | RADRPT ---
EXAM DATE/TIME: 10/29/2016 15:27 [facility] COMPARISON: CT ABDOMEN & PELVIS W CONTRAST, October 06, 2016, 20:38. CT NEEDLE BIOPSY BONE DEEP, October 13, 2016 , 14:56. INDICATIONS : Abdomen pain, IV CONTRAST: 97 cc Omnipaque 350 (iohexol) IV ORAL CONTRAST: No oral contrast ingested. RADIATION DOSE: 18.79 CTDIvol (mGy) MEDICAL HISTORY : Cardiovascular disease. Hypertension. Carcinoma, prostate.Diabetic SURGICAL HISTORY : Appendectomy. ENCOUNTER: Initial ACUITY: 1 day PAIN SCALE: 5/10 LOCATION: abdomen TECHNIQUE: Volumetric scanning of the abdomen and pelvis was performed. Using automated exposure control and ad justment of the mA and/or kV according to patient size, radiation dose was kept as low as reasonably achievable to obtain optimal diagnostic quality images. FINDINGS: The limited portion of lung bases visualized demonstrate mild atelectatic changes in the right lower lobe. There is a 3 mm calcified granuloma at the right lung base as well. There is a 2 mm calcified g ranuloma in the left lung base. The liver is normal in appearance. There is moderate splenomegaly. There are numerous calcified galls tones within the gallbladder. The pancreas and adrenal glands are intact. There are cyst within the kidneys bilaterally. There is a complex, calcified cystic mass projecting o ff the lower pole of the right kidney. This measures 9.1 x 8.6 cm. The irregular nature of the calcif ication and large bowel soft tissue which is associated with this is concerning for malignancy. Biops y would be warranted. There is no retroperitoneal lymphadenopathy. No free air free fluid is seen. Graft there is no free f luid within the pelvis. No iliac or inguinal adenopathy is present. The loops of small large bowel wi thin the pelvis are unremarkable. There is calcification within the prostate. Bone windowed imaging is provided. These demonstrate fairly diffuse bony sclerosis. This would be con cerning for widespread bony metastatic disease versus a myelofibrosis. Patient has undergone recent b one marrow biopsy. CONCLUSION: 1. There is a 9.1 x 8.6 cm partially calcified, septated mass projecting off the lower pole of the ri ght kidney concerning for malignancy. Biopsy would be warranted. 2. Diffuse bony sclerosis with splenomegaly suggesting a myelofibrosis. Metastatic disease to bone is not excluded. The patient has undergone recent bone marrow biopsy. Enrique Rodriguez MD on October 29, 2016 at 15:53 Board Certified Radiologist. This report was verified electronically.
[2016-10-29] MEDS ORDERED: HYDR-3533 PO (16:23)
[2016-10-29] MEDS ORDERED: PROT40TA PO (16:23)
[2016-10-29] MEDS ORDERED: PANTOPRAZOLE SODIUM 40 MG VIAL IV PUSH ONE (16:30)
--- NOTE | 2016-10-30 14:38 | EKG ---
Date Performed: 10/29/2016 Time Performed: 13:05:06 PTAGE: 56 years EKG: Sinus rhythm WITH FIRST DEGREE AV BLOCK WITH OCCASIONAL VENTRICULAR PREMATURE COMPLEXES WITH OCCASIONAL SUPRAVENT RICULAR PREMATURE COMPLEXES ABNORMAL ECG Compared to prior tracing no significant change PREVIOUS TRACING : 10/15/2016 06.40 DOCTOR: Jarrell Shannon Interpretating Date/Time 10/30/2016 14:36:18
== END 2016-10-29 16:48 | disposition home or self-care (01) ==
LOC: NEPC 12:45
DX: R10.9 Unspecified abdominal pain (principal); E11.9 Type 2 diabetes mellitus without complications; I10 Essential (primary) hypertension; C61 Malignant neoplasm of prostate; Z79.84 Long term (current) use of oral hypoglycemic drugs
CPT/HCPCS: 74177; 80053; 81001; 83605; 83690; 85007; 85027; 85610; 85730; 93005; 96374; 96375; 99285; C9113; J2270; Q9967

== ENCOUNTER 2016-11-08 15:25 | Emergency (ER) | payer MEDICAID, OTHER ==
[~2016-11-08 15:25] MED LIST changes: +HYDR-3533 PO; +PROT40TA PO
[2016-11-08 15:28] VITALS: BP 131/67; PULSE 97; RESP 16; TEMP 98.2; O2SAT 99
--- NOTE | 2016-11-08 16:39 | PD ---
HPI . needs oxycodone Chief Complaint: Medication Refill Request Time Seen by Provider: 16:39 Travel History International Travel<30 days: No Contact w/Intl Traveler<30days: No Traveled to known affect area: No History of Present Illness HPI 56-year-old male with history of metastatic prostate cancer here requesting refills on his oxycodone. Patient tells me that he ran out of medications he has not been able to get his oncologist until December 01. Patient is here requesting a refill on oxycodone. He denies any new issues or complaints. PFSH Past Medical History Blood Disorders: No Anxiety: Yes Depression: No Heart Rhythm Problems: No Cancer: Yes (NON-HODGKINS LYMPHOMA) Cardiovascular Problems: Yes High Cholesterol: No Chemotherapy: Yes Chest Pain: No Congestive Heart Failure: No Diabetes: Yes Diminished Hearing: No Endocrine: Yes Gastrointestinal Disorders: Yes (Abdominal pain) Genitourinary: Yes (burning, frequency) Hypertension: Yes Immune Disorder: No Implanted Vascular Access Dvce: Yes Musculoskeletal: No Neurologic: No Psychiatric: Yes Reproductive: No Respiratory: No Radiation Therapy: Yes Thyroid Disease: No ?: Not Past Surgical History Appendectomy: Yes Body Medical Devices: R-sublcavian port. Other Surgery: Yes (PORT PLACEMENT 2000, App) Social History Alcohol Use: No Tobacco Use: No Substance Use: No Allergies-Medications (Allergen,Severity, Reaction): Coded Allergies: Penicillin (Verified Allergy, Unknown, 11/08/16) Reported Meds & Prescriptions Reported Meds & Active Scripts Active Oxycodone-Acetaminophen 10-325 mg Tab 1 Tab PO Q6H PRN Protonix (Pantoprazole Sodium) 40 Mg Tab 40 Mg PO DAILY Lortab (Hydrocodone-Acetaminophen) 5-325 Mg Tab 1 Tab PO Q6H PRN Flomax (Tamsulosin HCl) 0.4 Mg Cap 0.4 Mg PO DAILY Reported Lisinopril-Hctz 20-25 Mg Tab 1 Tab PO BID Metoprolol Tartrate 100 Mg Tab 100 Mg PO BID Glipizide 10 Mg Tab 10 Mg PO BIDAC Take 30 minutes before a meal Metformin (Metformin HCl) 1,000 Mg Tab 1,000 Mg PO BIDPC With meals Review of Systems General / Constitutional: No: Fever Eyes: No: Visual changes HENT: No: Headaches Cardiovascular: No: Chest Pain or Discomfort Respiratory: No: Shortness of Breath Gastrointestinal: No: Abdominal Pain Genitourinary: No: Dysuria Musculoskeletal: Positive: Pain Skin: No Rash Neurologic: No: Weakness Psychiatric: No: Depression Endocrine: No: Polydipsia Hematologic/Lymphatic: No: Easy Bruising Physical Exam Narrative GENERAL: AAO x 3, no acute distress, Well-nourished, well-developed patient. SKIN: Warm and dry. No visible rashes or bruising. HEAD: Normocephalic and atraumatic. EYES: No scleral icterus. No injection or drainage. ENT: No nasal drainage noted. Mucous membranes pink. Airway patent. NECK: Supple, trachea midline. No JVD. CARDIOVASCULAR: Regular rate and rhythm without murmurs, gallops, or rubs. RESPIRATORY: Breath sounds equal bilaterally. No accessory muscle use. No rhonchi or rales. GASTROINTESTINAL: Abdomen soft, non-tender, nondistended. EXTREMITIES: No cyanosis or edema. BACK: tender with palpation PSYCH: AAO x 3, normal affect. Data Data Last Documented VS Vital Signs Date Time Temp Pulse Resp B/P Pulse Ox O2 Delivery O2 Flow Rate FiO2 11/08/16 15:28 98.2 97 16 131/67 99 MDM Medical Decision Making Medical Screen Exam Complete: Yes Emergency Medical Condition: Yes Medical Record Reviewed: Yes Differential Diagnosis metastatic cancer, acute on chronic pain, medication refill Narrative Course 56-year-old male with history of metastatic prostate cancer here requesting refills on his oxycodone. Patient tells me that he ran out of medications he has not been able to get his oncologist until December 01. Patient is here requesting a refill on oxycodone. He denies any new issues or complaints. Patient seen and examined. Case discussed with Dr. Archuleta. We will go ahead and issue a refill on his medications. We are giving him oxycodone 10 # 20 Patient advised he will have to follow-up with his primary care provider or oncologist for further refills. He is aware that the emergency department is unable to continue to fill these medications. Patient verbalized understanding of instructions, questions were answered, and thanked me for their care. I advised them if their condition worsens, please return to the nearest emergency room for further care. Diagnosis Primary Impression: Medication refill Additional Instructions: Please follow-up with her primary care provider or oncologist for further refills on your medications. Med/Other Pt SpecificInfo: Prescription(s) given Scripts Oxycodone-Acetaminophen 10-325 mg Tab1 Tab PO Q6H PRN (PAIN) #20 TAB Ref 0 Prov:Favio Archuleta MD 11/08/16 Disposition: 01 DISCHARGE HOME Condition: Stable Mary Diaz Nov 08, 2016 16:39
[2016-11-08] MEDS ORDERED: OXYC1TAB36 PO (16:46)
== END 2016-11-08 18:00 | disposition home or self-care (01) ==
LOC: NETRI 15:25
DX: I10 Essential (primary) hypertension (principal); E11.9 Type 2 diabetes mellitus without complications; Z85.72 Personal history of non-Hodgkin lymphomas; Z85.46 Personal history of malignant neoplasm of prostate; Z79.4 Long term (current) use of insulin; Z76.0 Encounter for issue of repeat prescription
CPT/HCPCS: 99281